=== PATIENT | female | born 1940 | race Caucasian/White ===

== ENCOUNTER → 2016-07-23 | Day surgery (SDC) | payer MEDICARE, OTHER ==
[~2016-07-23] VITALS: Ht 162.6 cm; Wt 117.9 kg
[~2016-07-23] MED LIST: /MOM400 PO; /SENOSTA PO; ACETYLCHOLINE OPHTH SOLN 1% 2ML As Ordered ONE; ACETYLCHOLINE OPHTH SOLN 1% 2ML XX ONE; ASPI81TA85 PO; ASTA4CAP PO; ASTAXANTHIN PO; AUGM875T27 PO; BALANCED SALT IRRIGATION SOLUTION 500ML BAG (FOR OR EYE MACHINE) As Ordered ONE; BALANCED SALT IRRIGATION SOLUTION 500ML BAG (FOR OR EYE MACHINE) XX ONE; BENI40TA5 PO; BESI0.6S OD; BISAC5TA PO; BISO10TA42 PO; CALC PO; CEFUROXIME 1MG/0.1ML INTRACAMERAL INJ As Ordered ONE; CEFUROXIME 1MG/0.1ML INTRACAMERAL INJ XX ONE; CHROMIUM PO; CINNAMON PO; DOCU10ELUD PO; FERR32TA PO; GABA300C2 PO; GARCINIA PO; GLIM4TAB PO; HEALON DUET (HEALON 10MG/ML 0.55ML & HEALON ENDOCOAT 30MG/ML 0.85ML) As Ordered ONE; ICAPCAP PO; KRIL300C PO; KRIL300C2 PO; LIDO1DIS2 TD; LIDOCAINE 0.75%/EPINEPHRINE 0.025% IN BSS 1ML SYR INTRACAMERAL (OR ONLY) XX ONE; LIDOCAINE 1% SDV 5 ML VIAL As Ordered ONE; LIDOCAINE 4% INJ 5 ML AMP OU ONE; METF-415 PO; MIDAZOLAM INJ 2 MG/2 ML VIAL (J2250) As Ordered ONE; MORP10SO PO; MORP10SU PO; OFLOXACIN 0.3 % (OCUFLOX) OPTH SOL 5ML OD ONE; PERC5TAB PO; PERCOCET PO; PHENYLEPHRINE 2.5% OPHTH SOL 2ML OD ONE; POVIDONE-IODINE 5% OPHTH PREP SOL 30ML As Ordered ONE; PRED1SUS OD; PROBCAP4 PO; PROPARACAINE 0.5% OPHTH SOL 15ML OD ONE; SENO8.6T9 PO; TOBRADEX OPHTH OINT 3.5 GM As Ordered ONE; TROPICAMIDE 1% OPHTH SOLN 2 ML OD ONE; TUMERIC PO; TYLE325T5 PO; Tumeric PO; VITA2000 PO; VITABCTA PO; VITMTA PO; ZIAC10TA PO; ZYFLAMEND PO; [UNRECOGNIZED DRUG - CODE] OD; [UNRECOGNIZED DRUG - OTHER] PO; fentaNYL 100 MCG/2 ML INJECTION (J3010) As Ordered ONE
[2016-07-23] MEDS: LIDOCAINE 1% SDV 5 ML VIAL XX ONE ×2 (07:29→08:04)
--- NOTE | 2016-07-25 09:44 | RO ---
DATE OF PROCEDURE: 07/23/2016 PREOPERATIVE DIAGNOSIS: Visually significant nuclear sclerotic cataract right eye. POSTOPERATIVE DIAGNOSIS: Visually significant nuclear sclerotic cataract right eye. PROCEDURE: Cataract extraction with use of phacoemulsification and placement of intraocular lens ZCB00 22.0 diopters, right eye. SURGEON: Alfred Connelly DO NURSE RECRUITER: ANESTHESIA: Local with monitored anesthesia care (MAC). COMPLICATIONS: None. POSTOPERATIVE CONDITION: Stable. INDICATION FOR SURGERY: Blurred vision right eye affecting patient's activities of daily living. DESCRIPTION OF PROCEDURE: The patient was seen in the preoperative area and properly identified. The correct operative eye was identified and marked. Attention was turned to that eye. The patient received topical antibiotics in the preoperative area. The patient then received topical dilating drops consisting of tropicamide and phenylephrine. The patient was then transferred to the operating room. The correct side was reidentified. The patient received topical anesthetics and antibiotics on the surface of the eye. The eye was prepped and draped in a sterile fashion. The upper and lower eyelids were isolated with Tegaderm tape, and the lids were held open with an adjustable speculum. Using a sideport blade, a paracentesis incision was made. Intraocular preservative-free lidocaine was then injected into the anterior chamber. Viscoelastic was then injected into the anterior chamber through the paracentesis. Using a 2.75 mm sharp-tipped keratome, the anterior chamber was entered via a temporal clear corneal incision. A continuous curvilinear capsulorrhexis was created with the aid of a 26-gauge cystotome and Utrata forceps. Hydrodissection was performed with balanced salt solution (BSS) on a blunt cannula until the nucleus was freely mobile. The crystalline lens was phacoemulsified and aspirated. Additional cohesive viscoelastic was placed into the capsular bag to deepen it. A ZCB00, 22.0 diopter lens was placed into the capsular bag and confirmed by visualizing the continuous curvilinear capsulorrhexis. Additional irrigation and aspiration was used to remove cortical material and remaining viscoelastic. The clear corneal incision was hydrated with BSS on a blunt cannula. The lens was well positioned. The incisions were then tested for leaks and found to be negative. The eye was then palpated for appropriate pressure and adjusted accordingly with BSS. Several drops of antibiotics and Iopidine were placed in the eye. The eyelid speculum was then carefully removed. Maxitrol ointment was placed in the eye. An eye patch and shield were then secured over the eye. The patient tolerated the procedure well and was discharged to the recovery unit in a stable condition.
== END | disposition home or self-care (01) ==
LOC: M SDC 05:53
PROVIDERS: ATTEND Ophthalmology
DX: H25.11 Age-related nuclear cataract, right eye (principal); I10 Essential (primary) hypertension; E11.9 Type 2 diabetes mellitus without complications; G47.30 Sleep apnea, unspecified; Z91.040 Latex allergy status; Z79.899 Other long term (current) drug therapy
CPT/HCPCS: 66984; J2250; J3010; V2632

== ENCOUNTER → 2016-11-13 | Outpatient (REF) | payer MEDICARE, OTHER ==
[~2016-11-13] MED LIST changes: -ACETYLCHOLINE OPHTH SOLN 1% 2ML As Ordered ONE; -ACETYLCHOLINE OPHTH SOLN 1% 2ML XX ONE; -BALANCED SALT IRRIGATION SOLUTION 500ML BAG (FOR OR EYE MACHINE) As Ordered ONE; -BALANCED SALT IRRIGATION SOLUTION 500ML BAG (FOR OR EYE MACHINE) XX ONE; -CEFUROXIME 1MG/0.1ML INTRACAMERAL INJ As Ordered ONE; -CEFUROXIME 1MG/0.1ML INTRACAMERAL INJ XX ONE; -HEALON DUET (HEALON 10MG/ML 0.55ML & HEALON ENDOCOAT 30MG/ML 0.85ML) As Ordered ONE; -LIDOCAINE 0.75%/EPINEPHRINE 0.025% IN BSS 1ML SYR INTRACAMERAL (OR ONLY) XX ONE; -LIDOCAINE 1% SDV 5 ML VIAL As Ordered ONE; -LIDOCAINE 4% INJ 5 ML AMP OU ONE; -MIDAZOLAM INJ 2 MG/2 ML VIAL (J2250) As Ordered ONE; -OFLOXACIN 0.3 % (OCUFLOX) OPTH SOL 5ML OD ONE; -PHENYLEPHRINE 2.5% OPHTH SOL 2ML OD ONE; -POVIDONE-IODINE 5% OPHTH PREP SOL 30ML As Ordered ONE; -PROPARACAINE 0.5% OPHTH SOL 15ML OD ONE; -TOBRADEX OPHTH OINT 3.5 GM As Ordered ONE; -TROPICAMIDE 1% OPHTH SOLN 2 ML OD ONE; -fentaNYL 100 MCG/2 ML INJECTION (J3010) As Ordered ONE
[2016-11-13 16:22] LABS: CALCIUM LEVEL 8.4 MG/DL (8.8-10.2); CREATININE FOR GFR 1.3 MG/DL (0.55-1.02); GLOMERULAR FILTRATION RATE 42.2 (>39); POTASSIUM SERUM 4.5 MEQ/L (3.5-5.1)
== END ==
LOC: M LABDRAW1 13:36
PROVIDERS: ATTEND Otolaryngology
DX: Z01.812 Encounter for preprocedural laboratory examination (principal)

== ENCOUNTER → 2017-04-23 | Outpatient (REF) | payer MEDICARE, OTHER ==
[~2017-04-23] MED LIST changes: +CEFD1CAP8 PO; +D 501TAB PO; +[UNRECOGNIZED DRUG - CODE] OD; -[UNRECOGNIZED DRUG - CODE] OD
== END ==
LOC: M LAB REF 12:22
PROVIDERS: ATTEND Nurse Practitioner Adult Health
DX: R53.1 Weakness (principal)

== ENCOUNTER 2017-04-24 10:45 | Emergency (ER) | payer MEDICARE, OTHER ==
[~2017-04-24] VITALS: Ht 162.6 cm; Wt 115.0 kg
[~2017-04-24 10:45] MED LIST changes: -CEFD1CAP8 PO; -D 501TAB PO
[2017-04-24 11:46] LABS: BASO % 0.3 % (0.0-1.0); EOS # 0.1 10^3/uL (0.0-0.50); EOS % 1.9 % (0.0-3.0); IMMATURE GRANULOCYTE % 0.3 % (0-0); LYMPH % 27.3 % (24.0-44.0); MEAN CORPUSCULAR HEMOGLOBIN 31.5 pg (27.0-33.0); MEAN CORPUSCULAR HGB CONC 32.8 g/dl (32.0-36.5); MEAN CORPUSCULAR VOLUME 96.1 fl (80.0-96.0); MONO # 0.7 10^3/uL (0.0-0.8); MONO % 9.4 % (0.0-5.0); NEUTROPHILS # 4.5 10^3/uL (1.8-7.7); NEUTROPHILS % 60.8 % (36.0-66.0); PLATELET COUNT, AUTOMATED 199 10^3/uL (150-450); RED CELL DISTRIBUTION WIDTH 13.3 % (11.5-14.5); WHITE BLOOD COUNT 7.4 10^3/uL (4.0-10.0)
[2017-04-24 11:49] LABS: ADD MANUAL DIFFER NO; DIFF SLIDE NUMBER 135
[2017-04-24 12:32] LABS: ALBUMIN 3.3 GM/DL (3.2-5.2); ALBUMIN/GLOBULIN RATIO 0.89 (1.00-1.93); ALKALINE PHOSPHATASE 93 U/L (45-117); ALT/SGPT 19 U/L (12-78); ANION GAP 10 MEQ/L (8-16); AST/SGOT 13 U/L (15-37); BILIRUBIN,DIRECT < 0.1 MG/DL (0.0-0.2); BILIRUBIN,TOTAL 0.4 MG/DL (0.2-1.0); BLOOD UREA NITROGEN 34 MG/DL (7-18); CALCIUM LEVEL 8.6 MG/DL (8.8-10.2); CARBON DIOXIDE LEVEL 25 MEQ/L (21-32); CHLORIDE LEVEL 104 MEQ/L (98-107); GLOMERULAR FILTRATION RATE 35.8 (>39); GLUCOSE, FASTING 278 MG/DL (83-110); POTASSIUM SERUM 4.8 MEQ/L (3.5-5.1); SODIUM LEVEL 139 MEQ/L (136-145)
[2017-04-24] MEDS ORDERED: ALPRAZolam 0.25 MG TAB PO ONE (13:00)
[2017-04-24] MEDS ORDERED: SODIUM CHLORIDE 0.9% 1000 ML IV ONE (13:15)
[2017-04-24] MEDS ORDERED: PROHANCE 279.3MG/ML 15ML VIAL (A9576) As Ordered ONE (13:35)
--- NOTE | 2017-04-24 14:42 | REP ---
REASON: Altered mental status. COMPARISON: 06/03/2016 FINDINGS: The technique utilized in obtaining the radiograph has magnified the cardiac silhouette and accentuated the interstitial markings. The superior mediastinal structures are midline. The cardiac silhouette is unremarkable in size, shape, and position. The diaphragmatic surfaces of the lungs are regular, and the costophrenic angles are clear. The pulmonary shepard are clear. The imaged osseous structures are intact. IMPRESSION: There is no acute cardiopulmonary disease. Signed by Souleymane Muhammad DO 04/24/2017 02:59 P
[2017-04-24 16:24] VITALS: BP 133/85
--- NOTE | 2017-04-25 12:36 | ECGEPIP ---
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
[2017-04-25] MEDS ORDERED: D 501TAB PO (17:49)
[2017-04-25] MEDS ORDERED: CEFD1CAP8 PO (17:49)
--- NOTE | 2017-04-26 09:03 | REP ---
MR BRAIN WITHOUT AND WITH CONTRAST: HISTORY: Left ear mass. CONTRAST: ProHance 22 mL. Areas of increased hyperintensity on T2-weighted images are present in the periventricular and subcortical white matter. This represents small vessel ischemic disease. There is no intraparenchymal hemorrhage, infarct, or midline shift. The ventricular system and cortical sulci are dilated consistent with moderate volume loss. There is no extracerebral collection. A mass consistent with an acoustic neuroma is present in the left internal auditory canal and cerebellopontine angle cistern. There is moderate heterogeneous enhancement with contrast. The acoustic neuroma measures 2.3 cm in transverse by 1.7 cm in AP by 1.8 cm in cephalocaudal dimensions. There is very minimal mass effect in the adjacent left anterior cerebellum and left lateral feng. Mucosal thickening is present in the ethmoid maxillary and sphenoid sinuses. IMPRESSION: 1. Small vessel ischemic disease. 2. Moderate volume loss. 3. Left cerebellopontine angle cisterna acoustic neuroma. Signed by Gordon Mendez MD 04/26/2017 09:04 A
== END 2017-04-24 16:28 | disposition short-term general hospital (02) ==
LOC: M ED 10:45
DX: G93.9 Disorder of brain, unspecified (principal); I44.7 Left bundle-branch block, unspecified; E11.9 Type 2 diabetes mellitus without complications; G47.30 Sleep apnea, unspecified; I10 Essential (primary) hypertension; M48.00 Spinal stenosis, site unspecified; Z87.891 Personal history of nicotine dependence; Z79.4 Long term (current) use of insulin; Z79.899 Other long term (current) drug therapy; Z91.040 Latex allergy status; Z91.018 Allergy to other foods

== ENCOUNTER 2017-04-25 12:50 | Inpatient (IN) | payer MEDICARE, OTHER ==
[~2017-04-25] VITALS: Ht 162.6 cm; Wt 114.5 kg
[2017-04-25 16:24] LABS: BASO % 0.4 % (0.0-1.0); EOS # 0.2 10^3/uL (0.0-0.50); EOS % 2.5 % (0.0-3.0); IMMATURE GRANULOCYTE % 0.6 % (0-0); LYMPH # 2.1 10^3/uL (1.5-4.5); MEAN CORPUSCULAR HEMOGLOBIN 31.8 pg (27.0-33.0); MEAN CORPUSCULAR VOLUME 96.5 fl (80.0-96.0); MONO # 0.8 10^3/uL (0.0-0.8); MONO % 10.9 % (0.0-5.0); NEUTROPHILS # 3.8 10^3/uL (1.8-7.7); NEUTROPHILS % 54.6 % (36.0-66.0); PLATELET COUNT, AUTOMATED 188 10^3/uL (150-450); RED CELL DISTRIBUTION WIDTH 13.1 % (11.5-14.5); WHITE BLOOD COUNT 6.9 10^3/uL (4.0-10.0)
[2017-04-25 16:31] LABS: INR 0.96
[2017-04-25 16:37] LABS: ADD MANUAL DIFFER NO; ADD MORPHOLOGY? NO; DIFF SLIDE NUMBER 144
[2017-04-25 16:45] LABS: ANION GAP 8 MEQ/L (8-16); BLOOD UREA NITROGEN 36 MG/DL (7-18); CALCIUM LEVEL 8.9 MG/DL (8.8-10.2); CARBON DIOXIDE LEVEL 27 MEQ/L (21-32); CHLORIDE LEVEL 107 MEQ/L (98-107); CREATININE FOR GFR 1.75 MG/DL (0.55-1.02); GLOMERULAR FILTRATION RATE 29.9 (>39); GLUCOSE, FASTING 170 MG/DL (83-110); POTASSIUM SERUM 4.1 MEQ/L (3.5-5.1); SODIUM LEVEL 142 MEQ/L (136-145)
[2017-04-25 17:43] LABS: OSMOLALITY URINE 606 MOSM/KG (500-800)
[2017-04-25] MEDS ORDERED: D 501TAB PO (17:49)
[2017-04-25] MEDS ORDERED: CEFD1CAP8 PO (17:49)
--- NOTE | 2017-04-25 18:00 | REPUSA ---
Clinical history: Renal failure. Findings: The urinary bladder is contracted. No urinary bladder masses are seen. The right kidney rodney sures 10.2 x 4.5 x 4.7 cm. The left kidney measures 11.2 x 5.4 x 6.2 cm. There is a simple left renal cyst measuring 2.1 x 1.2 x 1.2 cm. The kidneys demonstrate normal echotexture and echogenicity. Ther e is no evidence of hydronephrosis or nephrolithiasis. No renal masses are seen. No free fluid is dorinda reciated. Impression: Unremarkable ultrasound examination of the kidneys.
[2017-04-25] MEDS ORDERED: GLUCOSE 4 GM CHEW TABLET PO PRN (19:15)
[2017-04-25] MEDS ORDERED: GLUCAGON FOR INJ 1 MG VIAL (J1610) SC PRN (19:15)
[2017-04-25] MEDS ORDERED: DEXTROSE 50% 50 ML SYRINGE IV PRN (19:15)
--- NOTE | 2017-04-25 19:44 | HPE ---
DATE OF ADMISSION: 04/25/2017 PRIMARY CARE PROVIDER: Dr. Rascon NEUROSURGEON: Dr. Alfaro in [place]. CHIEF COMPLAINT: Generalized weakness. 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 She has seen her primary care provider about it and the nurse practitioner recently prescribed her Omnicef for an upper respiratory infection and thought that she was retaining fluid and provided her with loop diuretic as well. However, after the blood work returned, the patient was told not to take the loop diuretic but to take the antibiotic. The patient did not feel any significant improvement in her symptoms. She has a known left acoustic neuroma, for which she follows with a neurosurgeon, Dr. Alfaro, in [place] for. She presented to the emergency room yesterday and was found to have decrease finger to nose on the left side and a MRI completed yesterday in our emergency room, only preliminary report is available for, was mildly concerning for some cerebellar compression, and as such the patient was transferred to [place] in order to be evaluated by neurosurgeon and neurology. Neurosurgeon reportedly reviewed the MRI images and told her that it was not compressing the cerebellum and so there was nothing to do and that if the patient did well with a walker that she could go home. The patient was reportedly also seen by a neurologist in the emergency room in [place]. The neurologist told her that they would be happy to see her in the outpatient setting and the patient was able to ambulate with a walker and as such was sent home. Since arriving home last night, the patient states that she did not feel safe or comfortable using the walker ambulating around her house and as such her and her life partner returned to [facility] again today. She feels no different than she did yesterday and no change in her symptoms. She denies fevers, chills, chest pain, shortness of breath, nausea, vomiting, or diarrhea. She states that she feels fatigued, even while lying at rest, it is not with exertion. She denies associated dyspnea or chest pressure. She denies any rashes or ocular symptoms, such as diplopia. PAST MEDICAL HISTORY: 1. Chronic kidney disease. 2. Dyslipidemia. 3. Obstructive sleep apnea, compliant with CPAP. 4. Left bundle branch block. 5. Hypertension. 6. Spinal stenosis, status post surgery. 7. Diabetes with peripheral neuropathy. 8. Left acoustic neuroma. ALLERGIES: KIWI and LATEX. PAST SURGICAL HISTORY: 1. Bilateral cataract surgery. 2. Back surgery. 3. Left rotator cuff repair. 4. Left total knee replacement. 5. Gamma knife therapy for acoustic neuroma. 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 She has a life partner, whom she lives with. She is a former smoker, quit many years ago. Denies alcohol or illicit drug use. HOME MEDICATIONS: She recently stopped metformin. - vitamin D 5000 units daily - glyburide 8 mg daily - I-Caps one capsule by mouth twice a day - krill oil 500 mg daily - bisoprolol 10 mg daily - Cefdinir 600 mg by mouth daily - vitamin B complex one capsule daily FAMILY HISTORY: Noncontributory. REVIEW OF SYSTEMS: Negative other than history of present illness. PHYSICAL EXAMINATION: VITAL SIGNS: Temperature 97.2, heart rate 65, blood pressure 158/98, oxygen saturation 97% on room air. GENERAL: She is a morbidly obese, elderly, female lying on a stretcher at a 20 degree angle. She appears tired but is awake, alert and oriented times three and does not appear to be in any acute distress whatsoever. HEENT: Cranial nerves II through XII are grossly intact. She has mildly dry mucous membranes. No elevation in central venous pressure. CARDIOVASCULAR EXAM: S1, S2 regular. RESPIRATORY EXAM: Clear. ABDOMINAL EXAM: Grossly obese. Bowel sounds present. The abdomen is soft. EXTREMITIES: No clubbing, cyanosis or edema. LABORATORY DATA: WBC 6.9, hemoglobin 11.8, hematocrit 35.8, platelet count is 188. Chemistry panel: Sodium 142, potassium 4.1, chloride 107, bicarbonate 27, BUN 36, creatinine 1.7, up from a baseline of approximately 1.3. She has a set of cardiac enzymes negative from today and yesterday. INR today is 0.9. UA is fairly unremarkable. No microbiology. New imaging: The patient did have a renal ultrasound that was unremarkable. Only preliminary report is available from her MRI from yesterday. ASSESSMENT AND PLAN: This is a 76-year-old female with weakness in the setting of known acoustic neuroma. 1. Weakness, the etiology remains unclear. It has been progressive over the last 3 weeks. Given that it is fairly diffuse distribution throughout her entire body but mildly worse in her legs, MRI of the lumbosacral spine is ordered. It does not seem as though it is related to the acoustic neuroma, as she has been evaluated by neurosurgery already. At this time, her CKs are not elevated. I will check an amylase, as well as anticholinergic antibody. I will check ESR and C-reactive protein. Her obstructive sleep apnea is well controlled and titrated by pulmonary, Dr. Maciel. I will have her evaluated by physical therapy (PT). She may need potentially home care versus some assisted living placement. However, the etiology remains unclear. I did screen her for depression. She does not appear to be at all. She may benefit from a neurology consultation should her symptoms fail to improve. 2. Obstructive sleep apnea. Continue with CPAP. 3. Acute on chronic kidney injury. I will provide her with gentle IV fluid. She has had poor oral intake, as she has been in the emergency room for several days. 4. Spinal stenosis, as outlined above. This may be a contributing factor to her symptoms, although she is not having any maik pain. 5. Neuropathy. This may be contributing factor to her multifactorial gait instability as well. 6. Diabetes. We will place her on fingersticks. Her metformin continues to be on hold. 7. Upper respiratory infection. She does not appear to have any symptoms whatsoever at this time; however, I will continue with the medications prescribed by her outpatient provider, Cefdinir. 8. Hypertension. Continue with bisoprolol. 9. Deep vein thrombosis (DVT) prophylaxis. The patient will be on heparin. DISPOSITION: The patient is admitted to the medical/surgical floor to Dr. Cagle's service, who will continue following the patient at 7:00 a.m.
--- NOTE | 2017-04-25 20:30 | REPUSA ---
MRI of the lumbar spine without contrast Clinical statement: Pain. Technique: Multiecho multiplanar MRI images of the lumbar spine were obtained without administration of contrast. Comparison: None. Findings: The lumbar vertebral bodies are in satisfactory position and alignment. Surgical fusion steph nges at L4/L5 with interpedicular screws are grossly intact. No fractures or dislocations are demonst rated. Normal heterogeneous bone marrow signal is noted. No osseous tumors are seen. The intervertebr al disc heights are well maintained and demonstrate normal signal. The filum terminale and conus medu llaris appear unremarkable. The spinal cord demonstrates normal signal and contour. The surrounding s oft tissues are within normal limits. The L1/L2 disc level is unremarkable. At L2/L3, there is a broad disc osteophyte complex and disc bulge. There is no evidence of disc herni ation or central canal stenosis. There is moderate bilateral neural foraminal narrowing. At L3/L4, there is a broad disc osteophyte complex and disc bulge. There is no evidence of disc herni ation or central canal stenosis. There is moderate bilateral neural foraminal narrowing. The L4/L5 and L5/S1 disc levels are grossly unremarkable, but evaluation is limited because of suscep tibility artifact. Impression: 1. Broad disc osteophyte complexes and disc bulges at L2/L3 and L3/L4 causing moderate bilateral neur al foraminal narrowing. No evidence of central canal stenosis. 2. Surgical fusion at L4/L5 appears grossly intact. 3. No acute osseous abnormality.
[2017-04-25 22:13] VITALS: BP 142/89
[2017-04-25] MEDS: HumaLOG INSULIN (NovoLOG) PER UNIT SC SCH (23:16)
[2017-04-25] MEDS: HEPARIN SOD (PORCINE) 5000 UNITS/ML VIAL SC SCH (23:42)
[2017-04-25] MEDS: NS 1,000 ML IV SCH (23:42)
[2017-04-26] MEDS: HEPARIN SOD (PORCINE) 5000 UNITS/ML VIAL SC SCH ×3 (05:52→21:37)
[2017-04-26 06:00] VITALS: BP 154/66
[2017-04-26 07:23] LABS: MEAN CORPUSCULAR HEMOGLOBIN 31.7 pg (27.0-33.0); MEAN CORPUSCULAR HGB CONC 32.2 g/dl (32.0-36.5); MEAN CORPUSCULAR VOLUME 98.4 fl (80.0-96.0); RED CELL DISTRIBUTION WIDTH 13.2 % (11.5-14.5); WHITE BLOOD COUNT 5.6 10^3/uL (4.0-10.0)
[2017-04-26] MEDS: HumaLOG INSULIN (NovoLOG) PER UNIT SC SCH ×4 (07:30→21:00)
[2017-04-26 08:02] LABS: ALBUMIN 2.9 GM/DL (3.2-5.2); ALBUMIN/GLOBULIN RATIO 0.83 (1.00-1.93); BILIRUBIN,TOTAL 0.3 MG/DL (0.2-1.0); CALCIUM LEVEL 8.7 MG/DL (8.8-10.2); CREATININE FOR GFR 1.27 MG/DL (0.55-1.02); GLOMERULAR FILTRATION RATE 43.3 (>39); MAGNESIUM LEVEL 1.9 MG/DL (1.8-2.4); POTASSIUM SERUM 3.6 MEQ/L (3.5-5.1); TOTAL PROTEIN 6.4 GM/DL (6.4-8.2)
[2017-04-26] MEDS: BISOPROLOL FUMARATE 10 MG TAB PO SCH (08:30)
[2017-04-26] MEDS: VITAMIN B COMPLEX/VIT C CAP PO SCH (08:31)
[2017-04-26] MEDS: CEFDINIR 300 MG CAP (OMNICEF) PO SCH (08:31)
--- NOTE | 2017-04-26 12:33 | IPNPDOC ---
Subjective Date Seen The patient was seen on 04/26/17. Subjective Chief Complaint/HPI The patient is a 76-year-old female admitted with a reason for visit of Acute Chronic Renal Failure. Events since last encounter The patient was seen and examined with morning at bedside. The patient states her weakness hasn't improved and is still the same. The patient had an MRI of the lumber spine which showed no acute osseous abnormalities. PT and OT will come and work with the patient today. No overnight events reported since admission on floor. General: Reports: Normal Appetite, Denies: Chills, Night Sweats, Fatigue, Malaise ENT: Denies: Dysphagia, Sore Throat Skin: Denies: Bruising Pulmonary: Denies: Dyspnea, Cough Cardiovascular: Denies: Chest Pain, Lt Headedness Gastrointestinal: Denies: Nausea, Vomiting, Abdominal Pain, Diarrhea, Constipation Genitourinary: Denies: Hematuria, Retention Hematologic: Denies: Bruising, Bleeding Excessively Musculoskeletal: Denies: Neck Pain, Back Pain, Joint Pain, Muscle Pain, Spasms Neurological: Reports: Weakness (bilateral lower legs), Denies: Numbness Psych: Reports: Mood Normal, Denies: Depression, Memory Issues Objective Physical Examination General Exam: Positive: Alert, Cooperative, No Acute Distress Eye Exam: Positive: PERRLA, Conjunctiva & lids normal, EOMI ENT Exam: Positive: Atraumatic, Mucous membr. moist/pink, Pharynx Normal Chest Exam: Positive: Clear to auscultation, Normal air movement, Negative: Rales, Rhonchi, Wheezing Heart Exam: Positive: Rate Normal, Regular Rhythm, Normal S1, Normal S2, Negative: Murmurs, Rubs Abdomen Exam: Positive: Normal bowel sounds, Soft, Other (obese), Negative: Tenderness, Hepatospenomegaly Extremity Exam: Positive: Normal pulses, Tenderness (on soft palpation of lower extermity states its been there), Negative: Clubbing, Cyanosis, Edema, Swelling Skin Exam: Positive: Nl turgor and temperature, Negative: Rash, Breakdown Assessment /Plan Assessment 1. Weakness-diffuse body but more prominent in her lower extremities. patient had a lumbosacral MRI showed no acute osseous abnormalities. Patient's CRP is elevated at 1.48 and ESR was elevated at 43. Aldolase test currently pending. Unlikely this is rhabdomyolysis or polymyositis, even thought relatively acute onset of lower extremity weakness, no myoglobinuria and creatine kinase is not elevated at 53. The patient states no improvement in her weakness since being admitted to the floor. The patient will be evaluated and treated by PT and OT. If her symptoms worsen will consider Neuro consult. 2. Obstructive sleep apnea. Continue with CPAP. 3. Acute on chronic kidney injury. (reolving) Creatine is currently at 1.27. Patient is currently get IV fluids at 50 mls/hour. Will continue with IV fluids and monitor the patient to see if PO intake improves then will consider discontinuing fluids. 4. Spinal stenosis- This may be a contributing factor to her symptoms, although she is not having any maik pain. 5. Neuropathy. This may be contributing factor to her multifactorial gait instability as well. 6. Diabetes. We will place her on fingersticks. Her metformin continues to be on hold. 7. Upper respiratory infection. Still not complaining of any symptoms of URI will continue medications prescribed by her outpatient provider, Cefdinir. 8. Hypertension. Continue with bisoprolol. 9. Deep vein thrombosis (DVT) prophylaxis. Heparin. Plan/VTE VTE Prophylaxis Ordered?: Yes (Heparin) VS, I&O, 24H, Fishbone Vital Signs/I&O Vital Signs Date Time Temp Pulse Resp B/P (MAP) Pulse Ox O2 Delivery O2 Flow Rate FiO2 04/26/17 06:00 97.3 57 16 154/66 (95) 98 Room Air Laboratory Data 24H LABS Laboratory Tests 2 04/25/17 15:38: Immature Granulocyte % (Auto) 0.6H, White Blood Count 6.9, Red Blood Count 3.71L , Hemoglobin 11.8L, Hematocrit 35.8L, Mean Corpuscular Volume 96.5H, Mean Corpuscular Hemoglobin 31.8, Mean Corpuscular Hemoglobin Concent 33.0, Red Cell Distribution Width 13.1, Platelet Count 188, Neutrophils (%) (Auto) 54.6, Lymphocytes (%) (Auto) 31.0, Monocytes (%) (Auto) 10.9H, Eosinophils (%) (Auto) 2.5, Basophils (%) (Auto) 0.4, Neutrophils # (Auto) 3.8, Lymphocytes # (Auto) 2.1, Monocytes # (Auto) 0.8, Eosinophils # (Auto) 0.2, Basophils # (Auto) 0.0, Immature Granulocyte # (Auto) 0.0, Nucleated Red Blood Cells % (auto) 0.0, Erythrocyte Sedimentation Rate 43H, Prothrombin Time 12.9, Prothromb Time International Ratio 0.96, Activated Partial Thromboplast Time 27.5, Anion Gap 8 , Glomerular Filtration Rate 29.9L, Lactic Acid Level 0.9, Blood Urea Nitrogen 36H, Creatinine 1.75H, Sodium Level 142, Potassium Level 4.1, Chloride Level 107 , Carbon Dioxide Level 27, Calcium Level 8.9, Total Creatine Kinase 53, Magnesium Level 2.0, Creatine Kinase MB 1.3, Creatine Kinase MB Relative Index 2.45, Troponin I < 0.02, C-Reactive Protein, Quantitative 1.48H, Thyroid Stimulating Hormone (TSH) 0.723 04/25/17 16:04: Bedside Glucose (Misc Panel) 178H 04/25/17 17:24: Urine Appearance CLEAR, Urine Color YELLOW, Urine pH 5.0, Urine Specific [place] 1.017, Urine Protein NEGATIVE, Urine Glucose (UA) 1+H, Urine Ketones TRACEH, Urine Urobilinogen 0.2, Urine Bilirubin NEGATIVE, Urine Leukocyte Esterase NEGATIVE, Urine Blood NEGATIVE, Urine Nitrite NEGATIVE, Urine WBC (Auto ) 0, Urine RBC (Auto) 2, Urine Hyaline Casts (Auto) 1, Urine Bacteria (Auto) NEGATIVE, Urine Squamous Epithelial Cells 0, Urine Mucus (Auto) SMALL, Urine Sperm (Auto) , Urine Random Osmolality 606, Urine Random Creatinine 199.0, Urine Random Total Protein 14.2H, Urine Random Sodium 64, Urine Random Potassium 35.9, Urine Random Chloride 64 04/25/17 22:42: Bedside Glucose (Misc Panel) 218H 04/26/17 07:14: CBC/BMP Laboratory Tests 04/25/17 15:38 Red Blood Count 3.71 L, Mean Corpuscular Volume 96.5 H, Mean Corpuscular Hemoglobin 31.8, Mean Corpuscular Hemoglobin Concent 33.0, Red Cell Distribution Width 13.1, Neutrophils (%) (Auto) 54.6, Lymphocytes (%) (Auto) 31.0, Monocytes (%) (Auto) 10.9 H, Eosinophils (%) (Auto) 2.5, Basophils (%) ( Auto) 0.4, Neutrophils # (Auto) 3.8, Lymphocytes # (Auto) 2.1, Monocytes # (Auto ) 0.8, Eosinophils # (Auto) 0.2, Basophils # (Auto) 0.0, Calcium Level 8.9, Total Creatine Kinase 53 GME ATTESTATION GME ATTESTATION My preceptor for this patient encounter was physically present in the building during the encounter and was fully available. As needed, all aspects of the patient interview, examination, medical decision making process, and medical care plan development were reviewed and approved by the preceptor. Preceptor is aware and concurs with the plan as stated in the body of this note and will attest to such by his/her cosignature. ELDA CHOWDARY DO Apr 26, 2017 07:57
[2017-04-26 14:00] VITALS: BP 138/62
[2017-04-26] MEDS: NS 1,000 ML IV SCH (18:11)
--- NOTE | 2017-04-26 22:13 | CR ---
DATE OF CONSULTATION: 04/26/2017 REFERRING PROVIDER: Dr. Cagle. REASON FOR CONSULTATION: Generalized weakness. 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 Velarde, Neurosurgeon, at [facility]. The patient was seen at [facility] recently for symptoms of weakness, had an MRI of the brain showing a slight mass effect of the acoustic neuroma over her feng and cerebellum and was transferred to [facility]'s Emergency Department. At [facility], she was evaluated by the neurosurgical and neurology teams, both of which recommended outpatient workup for this, including outpatient physical therapy with recommendations to use a walker. While at home, the patient felt no improvement in her strength and decided to come into the hospital. She is accompanied by her son, Pedro, who is a psychologist living in [place], who is also able to provide a history. Pedro states that his mother has been having progressive confusion and cognitive changes ongoing for the last year. She lives with her quality control director, Hamida, a close friend, as well as locally she has her [id number] to look after her. They have all commented that her memory is not quite the same as it used to be. The patient states that she has been experiencing generalized fatigue all throughout her body, including aches and pains throughout her limbs. The patient was very fatigued and sleeping most of the day over the last week and a half. She was initially diagnosed with an upper respiratory infection and was started on cefdinir. The patient was also noted to have edema of the lower extremities and was placed on a diuretic. During this hospitalization, the patient has had a normal CPK of 53 with a slightly elevated ESR of 43. The patient's BUN and creatinine was originally elevated but has improved slightly back to baseline. Acetylcholine receptor antibodies have been ordered, although the patient denies any fatigability in her weakness. The patient is pending an EEG due to cognitive changes and will have an MRI of the cervical spine to rule out myelopathy. The patient does clarify that she has been having progressive weakness of the lower extremities probably longer than the last week and a half. She has been using both hands to push off chairs for quite some time now. In the house, she usually walks holding onto different objects to create some stability. Her acoustic neuroma has left her a baseline gait abnormality and imbalance. She also suffers from diabetes and likely has diabetic neuropathy along with age-related changes to her peripheral nerves as she is 76. PAST MEDICAL HISTORY: Chronic kidney disease. Dyslipidemia. Obstructive sleep apnea, on continuous positive airway pressure (CPAP). Left bundle branch block. Hypertension. Spinal stenosis, status post lumbar fusion surgery. Diabetes with peripheral polyneuropathy. Left acoustic neuroma, status post gamma knife therapy July or August of 2016. ALLERGIES: KIWI, LATEX. PAST SURGICAL HISTORY: Bilateral cataract surgery. Back surgery. Left rotator cuff repair. Left total knee placement. Gamma knife therapy for acoustic neuroma. 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 She is a former smoker, quit many years ago. Denies use of alcohol or illicit drugs. HOME MEDICATIONS: - vitamin D 5000 international units (IU) by mouth daily - glimepiride 8 mg by mouth daily - ICAPs by mouth twice a day - Krill Oil 500 mg by mouth daily - bisoprolol 10 mg by mouth daily - cefdinir 600 mg by mouth daily - vitamin B complex one capsule by mouth daily The patient did recently start using a new herbal supplement called Herbal Guggul. The patient started using this for lowering her cholesterol. FAMILY HISTORY: Noncontributory. REVIEW OF SYSTEMS 14-point review of systems obtained and is negative except as per history of the present illness. PHYSICAL EXAMINATION: Blood pressure is 138/62, pulse rate 69, respiratory rate is 16, oxygenation 95% on room air. Current height is 5 feet 4 inches, current weight is 113.8 kg. The patient is awake, alert, oriented to person, place and time. Speech, language, comprehension and repetition are intact. Pupils are 2-1/2 mm, round and reactive to light. Extraocular movements are intact in all directions. Sensation V1, V2, V3 is intact to light touch. No facial asymmetry to activation. Palate elevates symmetrically. Tongue is midline. No weakness of sternocleidomastoids bilaterally. Hearing is subjectively equal to finger rub. There is no pronator drift. The patient demonstrates 5/5 strength involving bilateral deltoids, biceps, triceps, handgrip, finger extensor, finger flexor, quadriceps, anterior tibialis. The patient demonstrates 5- weakness in bilateral iliopsoas. Sensory is intact to light touch in all four extremities. Coordination: Normal [id number] without any signs of ataxia or dysmetria. Deep tendon reflexes are 2+ in the upper extremities, absent at the patellas and Achilles. Babinski signs are absent. Gait deferred. ASSESSMENT: 1. Generalized weakness and deconditioning, multifactorial. 2. Confusion. Baseline dementia with probable delirium, given recent treatment of upper respiratory infection and antibiotic. 3. Less likely Guillain-Farwell syndrome. Areflexia of the lower extremities likely resulting from diabetes and age. PLAN: 1. Obtain MRI of cervical spine to rule out cervical myelopathy. 2. Start physical therapy for generalized deconditioning. 3. Obtain EEG to assess cognitive functioning. 4. I would avoid restarting her most recent herbal supplement Guggul. This does not appear to be a underlying myopathy at this time. She has quite adequate 5/5 strength in most muscles tested. 5. Management of left acoustic neuroma as per Dr. Velarde at [facility]. History obtained from both the patient the patient's son Pedro.
[2017-04-27 06:00] VITALS: BP 159/86
[2017-04-27 06:12] LABS: MEAN CORPUSCULAR HEMOGLOBIN 31.9 pg (27.0-33.0); MEAN CORPUSCULAR HGB CONC 33.3 g/dl (32.0-36.5); MEAN CORPUSCULAR VOLUME 95.7 fl (80.0-96.0); RED CELL DISTRIBUTION WIDTH 13.2 % (11.5-14.5); WHITE BLOOD COUNT 5.7 10^3/uL (4.0-10.0)
[2017-04-27 06:30] LABS: BILIRUBIN,TOTAL 0.2 MG/DL (0.2-1.0); CALCIUM LEVEL 8.5 MG/DL (8.8-10.2); CREATININE FOR GFR 1.06 MG/DL (0.55-1.02); GLOMERULAR FILTRATION RATE 53.4 (>39); POTASSIUM SERUM 3.9 MEQ/L (3.5-5.1)
[2017-04-27 06:31] LABS: ALBUMIN 2.5 GM/DL (3.2-5.2); ALBUMIN/GLOBULIN RATIO 0.74 (1.00-1.93); MAGNESIUM LEVEL 1.9 MG/DL (1.8-2.4); TOTAL PROTEIN 5.9 GM/DL (6.4-8.2)
[2017-04-27] MEDS: HEPARIN SOD (PORCINE) 5000 UNITS/ML VIAL SC SCH ×3 (06:33→23:14)
--- NOTE | 2017-04-27 08:30 | REP ---
MRI CERVICAL SPINE WITHOUT CONTRAST: HISTORY: Bilateral lower extremity weakness. The examination is limited secondary to motion. A disc bulge is present at the C4-5 level. There is mild effacement of the thecal sac without spinal cord compression. Uncinate process hypertrophy is present on the left. This produces mild narrowing of the left C4 neural foramen. The right C4 neural foramen is patent. A disc bulge with associated osteophyte formation is present at the C5-6 level. There is moderate effacement of the thecal sac without spinal cord compression. Bilateral uncinate process hypertrophy is present. This produces moderate narrowing of the C5 neural foramina. A disc bulge with associated osteophyte formation is present at the C6-7 level. There is mild effacement of the thecal sac without spinal cord compression. Bilateral uncinate process hypertrophy is present. This produces moderate narrowing of the C6 neural foramina. A disc bulge and small disc protrusion central and eccentric to the left are present at the C7-T1 level. There is mild effacement of the thecal sac without spinal cord compression. The C7 neural foramina are patent. Disc bulges are present at the T1-2 and T2-3 levels. There is minimal effacement of the thecal sac without spinal cord compression. The neural foramina are patent on sagittal images. There is no other disc bulge or herniation. The remaining neural foramina are patent. The spinal cord is normal in signal intensity. The C4-5 through C7-T1 intervertebral discs are decreased in height consistent with disc degeneration. Normal signal intensity is present in the cervical vertebral bodies. IMPRESSION: There is cervical spondylosis at the C4-5 through C7-T1 levels without spinal cord compression. Signed by Gordon Mendez MD 04/27/2017 08:37 A
[2017-04-27] MEDS: BISOPROLOL FUMARATE 10 MG TAB PO SCH (09:38)
[2017-04-27] MEDS: CEFDINIR 300 MG CAP (OMNICEF) PO SCH (09:38)
[2017-04-27] MEDS: VITAMIN B COMPLEX/VIT C CAP PO SCH (09:38)
[2017-04-27] MEDS: HumaLOG INSULIN (NovoLOG) PER UNIT SC SCH ×4 (09:40→21:00)
--- NOTE | 2017-04-27 11:03 | IPNPDOC ---
Subjective Date Seen The patient was seen on 04/27/17. Subjective Chief Complaint/HPI The patient is a 76-year-old female admitted with a reason for visit of Acute Chronic Renal Failure. Events since last encounter Overnight nurse states that patient seemed a little stronger overnight, but still complains of pain when she moves. Patient confirmed this and stated that the pain when she moves is in both legs. She says that this pain has been present in both calves for a week or two. Patient saw PT yesterday and will see them again today. Lumbar spine MRI on 04/25 showed no acute finding, renal ultrasound on 04/25 was unremarkable. Cervical spine MRI is pending. Acetylcholine Receptor Ab is pending. The patient states she is feeling a lot better this AM. She abmits to being hungry and having an appetite to eat. The patient has no other complaints this AM and understand she will continue working with PT and OT today. Dr. Hopper saw patient yesterday and ordered an EEG. He would like her to continue seeing her neurologist in [place] for her left acoustic neuroma. Patient has also been taking herbal Guggal, which he would like her to stop. Constitutional: Denies: Chills, Fever ENT: Denies: Head Aches Pulmonary: Denies: Dyspnea Cardiovascular: Denies: Chest Pain, Palpitations, Lt Headedness Gastrointestinal: Denies: Nausea, Vomiting, Abdominal Pain, Diarrhea, Constipation, Hematochezia Genitourinary: Denies: Dysuria, Frequency Musculoskeletal: Denies: Leg Pain (Bilaterally in calves, worsens with movement ) Neurological: Reports: Weakness (Improving) Objective Physical Examination General Exam: Positive: Alert, Cooperative, No Acute Distress Chest Exam: Positive: Clear to auscultation, Normal air movement, Negative: Rales, Rhonchi, Wheezing Heart Exam: Positive: Rate Normal, Regular Rhythm, Normal S1, Normal S2, Negative: Murmurs, Rubs Abdomen Exam: Positive: Normal bowel sounds, Soft, Other (morbidly obese), Negative: Tenderness Extremity Exam: Positive: Normal pulses, Tenderness (Bilaterally on calves), Negative: Clubbing, Cyanosis, Edema, Swelling Neuro Exam: Positive: Strength at 5/5 X4 ext (Equal bilaterally) Assessment /Plan Assessment 1. Weakness -Diffuse body but more prominent in her lower extremities; patient states that she feels stronger today. Patient had a lumbosacral MRI on 04/25 showed no acute osseous abnormalities. Patient saw PT yesterday and will see them again today. Patient was seen by Dr. Hopper yesterday, who ordered an EEG and would like patient to stop the herbal guggul that she has been taking recently for it might be the cause of her lower extremity weakness plus the dehydration. We appreciate his consult. 2. Obstructive sleep apnea. Continue with CPAP. 3. Acute on chronic kidney injury. (resolving) Creatine is currently at 1.06 ( 1.27 yesterday). Patient is currently get IV fluids at 50 mls/hour. Patient has good PO intake will discontinue iv fluids 4. Spinal stenosis. This may be a contributing factor to her symptoms, although she is not having any maik pain. 5. Neuropathy. This may be contributing factor to her multifactorial gait instability as well. 6. Diabetes. Continue to hold metformin and will continue to with insulin sliding scale. 7. Upper respiratory infection. Currently not complaining of any symptoms of URI, still on antibiotic prescribed by her outpatient provider, Cefdinir. WBC 5.7 today. Will stop antibiotics today. 8. Hypertension. Continue with bisoprolol. 9. Deep vein thrombosis (DVT) prophylaxis. Heparin. Plan/VTE VTE Prophylaxis Ordered?: Yes (Heparin) VS, I&O, 24H, Fishbone Vital Signs/I&O Vital Signs Date Time Temp Pulse Resp B/P (MAP) Pulse Ox O2 Delivery O2 Flow Rate FiO2 04/27/17 06:00 97.8 60 16 159/86 (110) 97 Room Air I&O- Last 24 Hours up to 6 AM 04/28/17 06:00 Intake Total 313 ml Balance 313 ml Laboratory Data 24H LABS Laboratory Tests 2 04/26/17 12:00: Bedside Glucose (Misc Panel) 274H 04/26/17 12:15: Bedside Glucose (Misc Panel) 306H 04/26/17 17:17: Bedside Glucose (Misc Panel) 145H 04/26/17 21:43: Bedside Glucose (Misc Panel) 187H 04/27/17 05:40: Anion Gap 7L, Glomerular Filtration Rate 53.4, Blood Urea Nitrogen 27H, Creatinine 1.06H, Sodium Level 143, Potassium Level 3.9, Chloride Level 112H, Carbon Dioxide Level 24, Calcium Level 8.5L, Aspartate Amino Transf (AST/SGOT) 8L, Alanine Aminotransferase (ALT/SGPT) 15, Alkaline Phosphatase 73, Total Bilirubin 0.2, Total Protein 5.9L, Albumin 2.5L, Magnesium Level 1.9, Albumin/ Globulin Ratio 0.74L CBC/BMP Laboratory Tests 04/27/17 05:40 Red Blood Count 3.29 L, Mean Corpuscular Volume 95.7, Mean Corpuscular Hemoglobin 31.9, Mean Corpuscular Hemoglobin Concent 33.3, Red Cell Distribution Width 13.2, Calcium Level 8.5 L, Aspartate Amino Transf (AST/SGOT) 8 L, Alanine Aminotransferase (ALT/SGPT) 15, Alkaline Phosphatase 73, Total Bilirubin 0.2, Total Protein 5.9 L, Albumin 2.5 L GME ATTESTATION GME ATTESTATION My preceptor for this patient encounter was physically present in the building during the encounter and was fully available. As needed, all aspects of the patient interview, examination, medical decision making process, and medical care plan development were reviewed and approved by the preceptor. Preceptor is aware and concurs with the plan as stated in the body of this note and will attest to such by his/her cosignature. ATTENDING NOTE Patient has been seen independently. All parts of the treatment plan has been discussed in detail with the resident and outlined above. A member of the hospitalist team will continue to see the patient daily through discharge to assist with management of this patient ELDA CHOWDARY, Apr 27, 2017 08:55 HAVEN VILLALOBOS DO Apr 30, 2017 15:44
[2017-04-27 11:15] VITALS: BP 146/85
[2017-04-27 14:00] VITALS: BP 146/67
[2017-04-27 23:06] VITALS: BP 168/72
[2017-04-27 23:11] VITALS: BP 170/80
[2017-04-28] MEDS ORDERED: BISOPROLOL FUMARATE 5 MG TAB PO ONE (00:15)
[2017-04-28 02:42] VITALS: BP 152/84
[2017-04-28] MEDS: HEPARIN SOD (PORCINE) 5000 UNITS/ML VIAL SC SCH ×3 (05:39→21:34)
--- NOTE | 2017-04-28 07:13 | EEG ---
DATE OF PROCEDURE: 04/27/2017 REFERRING PHYSICIAN: Dr. Koffi Lee. DIAGNOSIS: Seizure-like spell. EEG#: [id number] HISTORY: Patient is a 76-year-old woman who had gamma knife surgery for left-sided acoustic neuroma in 2017. The patient had progressive confusion and fatigue and cognitive changes. This EEG was done to rule out epileptic potential. She is currently taking Cefdinir, vitamin B complex bisoprolol, etc. TECHNICAL DESCRIPTION: This digital EEG was recorded by 21 scalp ear and two EKG electrodes and was reviewed in bipolar and referential montages following reformatting in 10-20 international electrode placement system. INTERPRETATION: The patient was noted to be in awake and drowsy states during this EEG. Resting awake background rhythm consisted of 7 - 8 Hz theta activity measuring 15 - 40 microvolts in amplitude, which was symmetric and reactive to eye opening. Attenuation of posterior dominant was seen during transition into drowsiness. Stage I and II sleep were reviewed and were symmetric bilaterally. Hyperventilation could not be performed. Photic stimulation remained unremarkable. EKG revealed normal sinus rhythm. No focal, lateralizing or epileptiform abnormalities were seen. CONCLUSION: This EEG in awake, drowsy states, stage I and II sleep is minimally abnormal due to presence of minimal generalized slowing consistent with minimal encephalopathy due to multiple potential causes. No epileptiform abnormalities were seen. Clinical correlation is recommended.
[2017-04-28 07:59] LABS: MEAN CORPUSCULAR HEMOGLOBIN 31.4 pg (27.0-33.0); MEAN CORPUSCULAR HGB CONC 32.8 g/dl (32.0-36.5); MEAN CORPUSCULAR VOLUME 95.5 fl (80.0-96.0); RED CELL DISTRIBUTION WIDTH 13.1 % (11.5-14.5); WHITE BLOOD COUNT 5.3 10^3/uL (4.0-10.0)
[2017-04-28 08:16] LABS: ALBUMIN 2.7 GM/DL (3.2-5.2); ALBUMIN/GLOBULIN RATIO 0.82 (1.00-1.93); BILIRUBIN,TOTAL 0.3 MG/DL (0.2-1.0); CALCIUM LEVEL 8.8 MG/DL (8.8-10.2); CREATININE FOR GFR 1.02 MG/DL (0.55-1.02); GLOMERULAR FILTRATION RATE 55.8 (>39); MAGNESIUM LEVEL 1.8 MG/DL (1.8-2.4); POTASSIUM SERUM 3.8 MEQ/L (3.5-5.1)
[2017-04-28] MEDS: HumaLOG INSULIN (NovoLOG) PER UNIT SC SCH ×4 (09:06→21:00)
[2017-04-28] MEDS: BISOPROLOL FUMARATE 10 MG TAB PO SCH (09:07)
[2017-04-28] MEDS: VITAMIN B COMPLEX/VIT C CAP PO SCH (10:36)
[2017-04-28 14:00] VITALS: BP 149/89
--- NOTE | 2017-04-28 16:09 | IPNPDOC ---
Date Seen The patient was seen on 04/28/17. Progress Note SUBJECTIVE: Patient is a [76-year-old female seen at bedside. She occasionally has lucid moments versus cognitive impairment through the night. Her partner. She lives with was present at bedside and she did inform us that this appears to be a new finding for her. There is a concern that she may have some underlying dementia that's developing along with superimposing delirium/ metabolic encephalopathy. OBJECTIVE PHYSICAL EXAMINATION: VITAL SIGNS: Please see below. GENERAL: [No acute distress, alert, pleasant. She does have some mild confusion] HEENT: [PERRLA. Throat clear. Neck supple] CARDIOVASCULAR: [Regular rate and rhythm]. RESPIRATORY: [Clear to auscultation bilaterally]. ABDOMINAL: [Soft, anteroseptal positive bowel sounds, mass, no rebound] EXTREMITIES: [No edema, no calf tenderness] NEUROLOGICAL: [Cranial nerves II through XII are grossly intact. No motor sensory deficits, but she does have some generalized weakness] PSYCHOLOGICAL: [Negative] LABORATORY DATA: Please see below. MICROBIOLOGY: Please see below. DVT prophylaxis ordered?: [Yes] ASSESSMENT AND PLAN: This is a -year-old [RACE] [GENDER] with . PROBLEMS: 1. Weakness -Diffuse body weakness. Spoke to her partner and encouraged patient to avoid as outlined previously. EEG was only remarkable for metabolic encephalopathy. We'll see how this improves with her treatment. 2. Metabolic encephalopathy: Multifactorial. 3. Cognitive impairment: Possibly delirium superimposed on some mild dementia. We'll see how she improves with current treatment. 4.. Obstructive sleep apnea. Continue with CPAP. 5.. Acute on chronic kidney injury. Resolved. We'll continue to follow her creatinine and kidney function 6.. Spinal stenosis. This may be a contributing factor to her symptoms, although she is not having any maik pain. 7. Neuropathy. This may be contributing factor to her multifactorial gait instability as well. 8. Diabetes. Continue to hold metformin and will continue to with insulin sliding scale. 9. Upper respiratory infection. We have discontinued her antibiotics. She remains afebrile with normal white count. No signs of sepsis. No signs of productive sputum. 9. Hypertension. Continue with bisoprolol. 10. Deep vein thrombosis (DVT) prophylaxis. Heparin. DISPOSITION: [She does appear to be slowly improving. We'll continue with physical therapy. She may need to be considered for subacute versus acute rehabilitation.]. VS, I&O, 24H, Fishbone Vital Signs/I&O Vital Signs Date Time Temp Pulse Resp B/P (MAP) Pulse Ox O2 Delivery O2 Flow Rate FiO2 04/28/17 14:00 98.7 62 18 149/89 (109) 97 Room Air I&O- Last 24 Hours up to 6 AM 04/29/17 06:00 Intake Total 600 ml Output Total 300 ml Balance 300 ml Laboratory Data 24H LABS Laboratory Tests 2 04/27/17 16:51: Bedside Glucose (Misc Panel) 147H 04/27/17 19:51: Bedside Glucose (Misc Panel) 162H 04/28/17 07:36: Anion Gap 6L, Glomerular Filtration Rate 55.8, Blood Urea Nitrogen 22H, Creatinine 1.02, Sodium Level 141, Potassium Level 3.8, Chloride Level 111H, Carbon Dioxide Level 24, Calcium Level 8.8, Aspartate Amino Transf (AST/SGOT) 7L , Alanine Aminotransferase (ALT/SGPT) 16, Alkaline Phosphatase 74, Total Bilirubin 0.3, Total Protein 6.0L, Albumin 2.7L, Magnesium Level 1.8, Albumin/ Globulin Ratio 0.82L 04/28/17 11:32: Bedside Glucose (Misc Panel) 194H CBC/BMP Laboratory Tests 04/28/17 07:36 Red Blood Count 3.57 L, Mean Corpuscular Volume 95.5, Mean Corpuscular Hemoglobin 31.4, Mean Corpuscular Hemoglobin Concent 32.8, Red Cell Distribution Width 13.1, Calcium Level 8.8, Aspartate Amino Transf (AST/SGOT) 7 L, Alanine Aminotransferase (ALT/SGPT) 16, Alkaline Phosphatase 74, Total Bilirubin 0.3, Total Protein 6.0 L, Albumin 2.7 L HAVEN VILLALOBOS DO Apr 28, 2017 16:09
[2017-04-28 21:00] VITALS: BP 144/76
[2017-04-29] MEDS: HEPARIN SOD (PORCINE) 5000 UNITS/ML VIAL SC SCH ×3 (05:45→21:07)
[2017-04-29 06:00] VITALS: BP 149/77
[2017-04-29 06:55] LABS: MEAN CORPUSCULAR HEMOGLOBIN 31.7 pg (27.0-33.0); MEAN CORPUSCULAR VOLUME 95.8 fl (80.0-96.0); RED CELL DISTRIBUTION WIDTH 13.1 % (11.5-14.5); WHITE BLOOD COUNT 5.8 10^3/uL (4.0-10.0)
[2017-04-29 07:18] LABS: ALBUMIN/GLOBULIN RATIO 0.81 (1.00-1.93); BILIRUBIN,TOTAL 0.3 MG/DL (0.2-1.0); CALCIUM LEVEL 9.2 MG/DL (8.8-10.2); CREATININE FOR GFR 1.27 MG/DL (0.55-1.02); GLOMERULAR FILTRATION RATE 43.3 (>39); MAGNESIUM LEVEL 1.9 MG/DL (1.8-2.4); POTASSIUM SERUM 3.8 MEQ/L (3.5-5.1); TOTAL PROTEIN 6.7 GM/DL (6.4-8.2)
[2017-04-29] MEDS: HumaLOG INSULIN (NovoLOG) PER UNIT SC SCH ×4 (09:23→21:00)
[2017-04-29] MEDS: VITAMIN B COMPLEX/VIT C CAP PO SCH (09:23)
[2017-04-29] MEDS: BISOPROLOL FUMARATE 10 MG TAB PO SCH (09:23)
--- NOTE | 2017-04-29 11:29 | IPNPDOC ---
Subjective Date Seen The patient was seen on 04/29/17. Subjective Chief Complaint/HPI The patient is a 76-year-old female admitted with a reason for visit of Acute Chronic Renal Failure. Events since last encounter Patient was sleeping before we saw her and she woke up groggy, which made it difficult to get a history. Patient was seen by OT and PT yesterday, nursing says she did well, was able to shower and walk in the hallway. PT believes patient would benefit from ARU on discharge at this point. Patient is still complaining of bilateral leg pain in calves; family member called yesterday to say that patient was supposed to get a leg ultrasound before leaving ED in [place] earlier in the week, but it was never done. Ultrasound was ordered this morning. Patient had Cefdinir discontinued on 04/27, still afebrile and WBC 5.8 today. EEG on 04/28 showed possible metabolic encephalopathy changes. Pulmonary: Denies: Dyspnea Cardiovascular: Denies: Chest Pain Musculoskeletal: Reports: Leg Pain (Bilateral in calves, increased on movement) Objective Physical Examination General Exam: Positive: No Acute Distress, Negative: Alert (Sleepy, not very talkative) Chest Exam: Positive: Clear to auscultation, Normal air movement, Negative: Rales, Rhonchi, Wheezing Heart Exam: Positive: Rate Normal, Regular Rhythm, Normal S1, Normal S2, Negative: Murmurs, Rubs Abdomen Exam: Positive: Normal bowel sounds, Soft, Other (morbidly obese), Negative: Tenderness Extremity Exam: Positive: Tenderness (More tender on palpation of left calf and highly sensitive to touch on the lower extremity skin Bilaterally.), Other ( Red/brown discoloration of lower extremities bilaterally, more pronounced on left), Negative: Clubbing, Cyanosis, Edema, Swelling Assessment /Plan Assessment 1. Weakness -Diffuse body weakness. EEG on 04/28 was only remarkable for minimal encephalopathy. Acetylcholine Receptor Antibody came back negative on 04/28. Patient has been told to stop herbal Guggal as this may be causing myositis. Patient has been working with PT and OT with improvement. PT suggested that patient would possibly benefit from ARU after discharge. Will continue PT and OT today and monitor for improvement. We'll contact PMR and see if they'll take the patient pending discharge. 2. Leg pain (more in left calf): Patient states she has had this pain for a week or two. Family member called yesterday to say that patient was supposed to get a leg ultrasound per ED in [place], but it was never done. Ultrasound has been ordered. Per nursing, patient refuses Dane stockings because her legs are very tender and highly sensitive to touch. Heparin has been administered since admission. 3. Metabolic encephalopathy: Multifactorial. EEG confirmed encephalopathy on . 4. Cognitive impairment: Possibly delirium superimposed on some mild dementia. We'll see how she improves with current treatment. 5. Obstructive sleep apnea. Continue with CPAP. 6. Acute on chronic kidney injury. Resolved. We'll continue to follow her creatinine and kidney function. 7. Spinal stenosis. This may be a contributing factor to her symptoms, although she is not having any maik pain. 8. Neuropathy. This may be contributing factor to her multifactorial gait instability as well. 9. Diabetes. Continue to hold metformin and will continue to control with insulin sliding scale. 10. Upper respiratory infection. We discontinued her antibiotics on 04/27. She remains afebrile with normal white count. No signs of sepsis. No signs of productive sputum. 11. Hypertension. Continue with bisoprolol. 12. Deep vein thrombosis (DVT) prophylaxis. Heparin. Plan/VTE VTE Prophylaxis Ordered?: Yes (Heparin) VS[facility]&O[facility] Vital Signs/I&O Vital Signs Date Time Temp Pulse Resp B/P (MAP) Pulse Ox O2 Delivery O2 Flow Rate FiO2 04/29/17 06:00 98.5 67 18 149/77 (101) 97 NIPPV (BIPAP/CPAP) Laboratory Data 24H LABS Laboratory Tests 2 04/28/17 11:32: Bedside Glucose (Misc Panel) 194H 04/28/17 16:45: Bedside Glucose (Misc Panel) 231H 04/28/17 20:38: Bedside Glucose (Misc Panel) 164H 04/29/17 06:23: Nucleated Red Blood Cells % (auto) 0.0, Anion Gap 9, Glomerular Filtration Rate 43.3, Blood Urea Nitrogen 23H, Creatinine 1.27H, Sodium Level 142, Potassium Level 3.8, Chloride Level 110H, Carbon Dioxide Level 23, Calcium Level 9.2, Aspartate Amino Transf (AST/SGOT) 15, Alanine Aminotransferase (ALT/SGPT) 20, Alkaline Phosphatase 79, Total Bilirubin 0.3, Total Protein 6.7, Albumin 3.0L, Magnesium Level 1.9, Albumin/Globulin Ratio 0.81L CBC/BMP Laboratory Tests 04/29/17 06:23 Red Blood Count 3.60 L, Mean Corpuscular Volume 95.8, Mean Corpuscular Hemoglobin 31.7, Mean Corpuscular Hemoglobin Concent 33.0, Red Cell Distribution Width 13.1, Calcium Level 9.2, Aspartate Amino Transf (AST/SGOT) 15 , Alanine Aminotransferase (ALT/SGPT) 20, Alkaline Phosphatase 79, Total Bilirubin 0.3, Total Protein 6.7, Albumin 3.0 L GME ATTESTATION GME ATTESTATION My preceptor for this patient encounter was physically present in the building during the encounter and was fully available. As needed, all aspects of the patient interview, examination, medical decision making process, and medical care plan development were reviewed and approved by the preceptor. Preceptor is aware and concurs with the plan as stated in the body of this note and will attest to such by his/her cosignature. ATTENDING NOTE Attending Note: I have independently examined this patient and all aspects of the exam and treatment decisions have been discussed with the resident. A member of the hospitalist staff will continue to follow this patient through discharge. ELDA CHOWDARY, Apr 29, 2017 07:54 HAVEN VILLALOBOS DO May 02, 2017 14:58
[2017-04-29 14:00] VITALS: BP 148/86
--- NOTE | 2017-04-29 14:28 | REP ---
Duplex extremity venous ultrasound: Bilateral lower extremity veins. History: Bilateral calf pain and swelling. Findings: The deep veins are anechoic and fully compressible from the groin to the popliteal fossa in the left and right lower extremity. We were unable to completely compress the distal superficial femoral vein in each side due to patient discomfort but both of these vein segments augment normally with Doppler. Color flow imaging is homogeneous. Spectral Doppler interrogation demonstrates intact respiratory variation in flow and normal manual augmentation of flow. There is no evidence of deep vein thrombosis. Impression: Negative bilateral lower extremity duplex venous ultrasound. No evidence of deep vein thrombosis. Signed by Rambo Erwin MD 04/29/2017 02:19 P
[2017-04-29 20:30] VITALS: BP 150/74
[2017-04-30 05:02] VITALS: BP 152/72
[2017-04-30] MEDS: HEPARIN SOD (PORCINE) 5000 UNITS/ML VIAL SC SCH ×3 (05:35→21:44)
[2017-04-30 06:40] LABS: MEAN CORPUSCULAR HEMOGLOBIN 31.7 pg (27.0-33.0); MEAN CORPUSCULAR HGB CONC 33.2 g/dl (32.0-36.5); MEAN CORPUSCULAR VOLUME 95.4 fl (80.0-96.0); RED CELL DISTRIBUTION WIDTH 13.1 % (11.5-14.5)
[2017-04-30 07:04] LABS: ALBUMIN/GLOBULIN RATIO 0.86 (1.00-1.93); BILIRUBIN,TOTAL 0.4 MG/DL (0.2-1.0); CALCIUM LEVEL 8.8 MG/DL (8.8-10.2); CREATININE FOR GFR 1.15 MG/DL (0.55-1.02); GLOMERULAR FILTRATION RATE 48.6 (>39); MAGNESIUM LEVEL 1.8 MG/DL (1.8-2.4); POTASSIUM SERUM 3.9 MEQ/L (3.5-5.1); TOTAL PROTEIN 6.5 GM/DL (6.4-8.2)
[2017-04-30] MEDS: HumaLOG INSULIN (NovoLOG) PER UNIT SC SCH ×4 (09:37→20:16)
[2017-04-30] MEDS: VITAMIN B COMPLEX/VIT C CAP PO SCH (09:37)
[2017-04-30] MEDS: BISOPROLOL FUMARATE 10 MG TAB PO SCH (09:38)
--- NOTE | 2017-04-30 10:53 | IPNPDOC ---
Subjective Date Seen The patient was seen on 04/30/17. Subjective Chief Complaint/HPI The patient is a 76-year-old female admitted with a reason for visit of Acute Chronic Renal Failure. Events since last encounter The patient states that she feels much better today. Her leg pain is still present bilaterally. Ultrasound on 04/29 showed no DVT's. Patient is still working with PT and OT. Both nursing and PT was consulted this morning, and both agree that patient is still too weak for PMR. They say that the patient is motivated to get stronger, but gets weak very quickly (patient was exhausted after only 10 minutes with PT today). It was suggested that something less strenuous than PMR for her. Also, patient seems to have trouble following some commands without repetition, and gets confused at night. ENT: Denies: Head Aches Pulmonary: Denies: Dyspnea Cardiovascular: Denies: Chest Pain, Palpitations, Lt Headedness Gastrointestinal: Reports: Constipation (Patient was concerned because she has not had her normal bowel movement today), Denies: Nausea, Vomiting, Abdominal Pain, Diarrhea Musculoskeletal: Reports: Leg Pain (Still bilaterally in calves/shins) Objective Physical Examination General Exam: Positive: Alert (Patient sitting in chair), No Acute Distress Chest Exam: Positive: Clear to auscultation, Normal air movement, Negative: Rales, Rhonchi, Wheezing Heart Exam: Positive: Rate Normal, Regular Rhythm, Normal S1, Normal S2, Negative: Murmurs, Rubs Abdomen Exam: Positive: Normal bowel sounds, Soft, Other (morbidly obese), Negative: Tenderness Extremity Exam: Positive: Tenderness (Bilaterally in calves/shins), Other (Red/ brown discoloration of lower extremities bilaterally, more pronounced on left), Negative: Clubbing, Cyanosis, Edema, Swelling Skin Exam: Positive: Breakdown (Bilateral arterial insufficiency in LE) Assessment /Plan Assessment 1. Weakness -Diffuse body weakness. EEG on 04/28 was only remarkable for minimal encephalopathy. Patient has been told to stop herbal Guggal as this may be causing myositis. Patient has been working with PT and OT with improvement. PT and nursing were consulted today, and both agree that PMR would be too strenuous for the patient at this time. Will continue PT and OT today and monitor for improvement. Consulted Social Service to find a subacute rehab more appropriate for the patient. 2. Leg pain. Patient states she has had this pain for a week or two. Ultrasound yesterday showed no DVTs. Per nursing, patient refuses Dane stockings because her legs are very tender and highly sensitive to touch. Will continue with Heparin. 3. Metabolic encephalopathy: Multifactorial. EEG confirmed encephalopathy on . 4. Cognitive impairment: Possibly delirium superimposed on some mild dementia. Nursing and PT agree that patient is sometimes not able to follow instructions well without repetition. We'll see how she improves with current treatment. 5. Obstructive sleep apnea. Continue with CPAP. 6. Acute on chronic kidney injury. Resolved. We'll continue to follow her creatinine and kidney function. 7. Spinal stenosis. This may be a contributing factor to her symptoms, although she is not having any maik pain. 8. Neuropathy. This may be contributing factor to her multifactorial gait instability as well. 9. Diabetes. Continue to hold metformin and will continue to control with insulin sliding scale. 10. Upper respiratory infection. We discontinued her antibiotics on 04/27. She remains afebrile with normal white count. No signs of sepsis. No signs of productive sputum. 11. Hypertension. Continue with bisoprolol. 12. Deep vein thrombosis (DVT) prophylaxis. Heparin. Plan/VTE VTE Prophylaxis Ordered?: Yes (Heparin) VS, I&O, 24H, [facility] Vital Signs/I&O Vital Signs Date Time Temp Pulse Resp B/P (MAP) Pulse Ox O2 Delivery O2 Flow Rate FiO2 04/30/17 09:38 67 134/74 04/30/17 05:02 98.3 18 98 Room Air Laboratory Data 24H LABS Laboratory Tests 2 04/29/17 11:38: Bedside Glucose (Misc Panel) 240H 04/29/17 17:32: Bedside Glucose (Misc Panel) 177H 04/29/17 20:37: Bedside Glucose (Misc Panel) 201H 04/30/17 06:08: Bedside Glucose (Misc Panel) 176H 04/30/17 06:32: Nucleated Red Blood Cells % (auto) 0.0, Anion Gap 4L, Glomerular Filtration Rate 48.6, Blood Urea Nitrogen 20H, Creatinine 1.15H, Sodium Level 141, Potassium Level 3.9, Chloride Level 110H, Carbon Dioxide Level 27, Calcium Level 8.8, Aspartate Amino Transf (AST/SGOT) 24, Alanine Aminotransferase (ALT/ SGPT) 33, Alkaline Phosphatase 85, Total Bilirubin 0.4, Total Protein 6.5, Albumin 3.0L, Magnesium Level 1.8, Albumin/Globulin Ratio 0.86L CBC/BMP Laboratory Tests 04/30/17 06:32 Red Blood Count 3.69 L, Mean Corpuscular Volume 95.4, Mean Corpuscular Hemoglobin 31.7, Mean Corpuscular Hemoglobin Concent 33.2, Red Cell Distribution Width 13.1, Calcium Level 8.8, Aspartate Amino Transf (AST/SGOT) 24 , Alanine Aminotransferase (ALT/SGPT) 33, Alkaline Phosphatase 85, Total Bilirubin 0.4, Total Protein 6.5, Albumin 3.0 L GME ATTESTATION GME ATTESTATION My preceptor for this patient encounter was physically present in the building during the encounter and was fully available. As needed, all aspects of the patient interview, examination, medical decision making process, and medical care plan development were reviewed and approved by the preceptor. Preceptor is aware and concurs with the plan as stated in the body of this note and will attest to such by his/her cosignature. ATTENDING NOTE Attending Note: I have independently examined this patient and all aspects of the exam and treatment decisions have been discussed with the resident. A member of the hospitalist staff will continue to follow this patient through discharge. ELDA CHOWDARY DO Apr 30, 2017 10:47 HAVEN VILLALOBOS DO May 02, 2017 15:02
[2017-04-30 14:00] VITALS: BP 146/77
--- NOTE | 2017-04-30 17:48 | REP ---
Noncontrast head CT: History: Confusion. Comparison brain MRI study April 24, 2020 07:00 p.m. 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 CT findings: Preliminary digital thermoscrew operator radiographs are unremarkable. Bone window settings demonstrate an intact bony calvarium. There is some mucosal thickening in the right sphenoid sinus. No intraorbital abnormality is seen. There is a mild to moderate diffuse cerebral atrophy and concordant ventricular enlargement. Small vessel atherosclerotic changes are seen in the periventricular white matter of the frontal lobes bilaterally. There is no evidence of intracranial hemorrhage. No extra-axial fluid collection is seen. The left CP angle cistern mass is noted as observed on recent MR study. This widens the left internal auditory canal. No other extra-axial mass seen. No midline shift or infarction noted. Impression: Vascular calcification and diffuse moderate atrophy. Small vessel changes are noted. 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 No acute intracranial abnormality. Signed by Rambo Erwin MD 04/30/2017 07:24 P
--- NOTE | 2017-04-30 18:16 | REP ---
Chest x-ray: Two views. History: Confusion. Comparison chest x-ray April 24, 2017 and June 03, 2016 . Findings: Cardiomegaly is again observed, unchanged. There is mild linear discoid atelectasis versus fibrosis anteriorly in the retrosternal clear space on lateral radiograph. This is probably left-sided. It appears to be unchanged from comparison chest x-ray June 03, 2016. No new infiltrate is seen. No pleural effusion is seen. The aorta is somewhat tortuous. There are degenerative changes in the thoracic spine. Impression: Cardiomegaly. No acute disease. Signed by Rambo Erwin MD 04/30/2017 07:24 P
[2017-04-30] MEDS: guaiFENesin ER 600 MG TAB PO SCH (20:16)
[2017-04-30 21:00] VITALS: BP 151/71
[2017-05-01] MEDS: HEPARIN SOD (PORCINE) 5000 UNITS/ML VIAL SC SCH ×3 (05:34→21:54)
[2017-05-01 06:00] VITALS: BP 145/75
[2017-05-01 06:39] LABS: MEAN CORPUSCULAR HGB CONC 33.6 g/dl (32.0-36.5); MEAN CORPUSCULAR VOLUME 95.2 fl (80.0-96.0); RED CELL DISTRIBUTION WIDTH 13.3 % (11.5-14.5); WHITE BLOOD COUNT 7.7 10^3/uL (4.0-10.0)
[2017-05-01 07:02] LABS: ALBUMIN 2.8 GM/DL (3.2-5.2); ALBUMIN/GLOBULIN RATIO 0.82 (1.00-1.93); ALKALINE PHOSPHATASE 85 U/L (45-117); ALT/SGPT 41 U/L (12-78); ANION GAP 7 MEQ/L (8-16); AST/SGOT 27 U/L (15-37); BILIRUBIN,TOTAL 0.3 MG/DL (0.2-1.0); BLOOD UREA NITROGEN 22 MG/DL (7-18); CALCIUM LEVEL 8.9 MG/DL (8.8-10.2); CARBON DIOXIDE LEVEL 25 MEQ/L (21-32); CHLORIDE LEVEL 109 MEQ/L (98-107); CREATININE FOR GFR 1.08 MG/DL (0.55-1.02); GLOMERULAR FILTRATION RATE 52.2 (>39); GLUCOSE, FASTING 179 MG/DL (83-110); MAGNESIUM LEVEL 1.8 MG/DL (1.8-2.4); POTASSIUM SERUM 3.9 MEQ/L (3.5-5.1); SODIUM LEVEL 141 MEQ/L (136-145); TOTAL PROTEIN 6.2 GM/DL (6.4-8.2)
[2017-05-01] MEDS: VITAMIN B COMPLEX/VIT C CAP PO SCH (08:40)
[2017-05-01] MEDS: HumaLOG INSULIN (NovoLOG) PER UNIT SC SCH ×4 (08:40→21:00)
[2017-05-01] MEDS: BISOPROLOL FUMARATE 10 MG TAB PO SCH (08:40)
[2017-05-01] MEDS: guaiFENesin ER 600 MG TAB PO SCH ×2 (08:40→21:53)
[2017-05-01] MEDS: FOLIC ACID 1 MG TAB PO SCH (09:00)
--- NOTE | 2017-05-01 11:03 | IPNPDOC ---
Subjective Date Seen The patient was seen on 05/01/17. Subjective Chief Complaint/HPI The patient is a 76-year-old female admitted with a reason for visit of Acute Chronic Renal Failure. Events since last encounter Patient was seen and examined this morning at her bedside. Patient states that she feels better this morning she remembers seeing her son yesterday and having a discussion with him. Patient has a desire to go home but understands that she needs to go to subacute rehabilitation to increase her strength. Patient has no other complaints this morning. She slept well overnight with no problems.Per Nursing the patient had one event where she turned on her bed and urinated all over the floor, per patient she does not remember this event at all. Yesterday Dr. Villalobos and Dr. Luque had a long extensive discussion with her son. Who wanted an update on his mother for he states there are her acute decline is very rapid and is not back to baseline. We ordered a head CT and chest x-ray yesterday which showed no acute processes. Patient's urine for urinalysis still needs to be collected. General: Denies: Chills, Fatigue Constitutional: Denies: Chills, Fever Pulmonary: Denies: Dyspnea, Cough Cardiovascular: Denies: Chest Pain, Palpitations Gastrointestinal: Denies: Nausea, Vomiting, Abdominal Pain, Diarrhea, Constipation Genitourinary: Denies: Dysuria Musculoskeletal: Reports: Leg Pain (bilateral calves sensitive to touch no pain on ambulation) Neurological: Reports: Weakness Psych: Denies: Memory Issues (patient denies any memory problems) Objective Physical Examination General Exam: Positive: Alert, Cooperative, No Acute Distress Chest Exam: Positive: Clear to auscultation, Normal air movement, Negative: Rales, Rhonchi, Wheezing Heart Exam: Positive: Rate Normal, Regular Rhythm, Normal S1, Normal S2, Negative: Murmurs, Rubs Abdomen Exam: Positive: Normal bowel sounds, Soft, Other (morbidly obese), Negative: Tenderness Extremity Exam: Positive: Normal pulses, Tenderness (Bilaterally on calves), Negative: Clubbing, Cyanosis, Edema, Swelling Skin Exam: Positive: Breakdown (Bilateral arterial insufficiency in LE) Neuro Exam: Positive: Strength at 5/5 X4 ext (Equal bilaterally) Assessment /Plan Assessment 1. Weakness -Diffuse body weakness. EEG on 04/28 was only remarkable for minimal encephalopathy. Patient has been told to stop herbal Guggal as this may be causing myositis. Patient has been working with PT and OT with improvement. PT and nursing were consulted today, and both agree that PMR would be too strenuous for the patient at this time. Will continue PT and OT today and monitor for improvement. Consulted Social Service to find a subacute rehab more appropriate for the patient. 2. Leg pain. Patient states she has had this pain for a week or two. Ultrasound yesterday showed no DVTs. Per nursing, patient refuses Dane stockings because her legs are very tender and highly sensitive to touch. Will continue with Heparin. 3. Metabolic encephalopathy: Multifactorial. EEG confirmed encephalopathy on . 4. Cognitive impairment: Possibly delirium superimposed on some mild dementia. Nursing and PT agree that patient is sometimes not able to follow instructions well without repetition. Repeat head CT on 04/30/2017 was negative for any acute intracranial lesions.Chest x-ray done on 04/30 show no acute disease as well. Urinalysis has been ordered. Patient's delirium state is probably due to underlying dementia and age related sundowning. This morning on examination patient was able to answer all questions appropriately and perform actions when asked. Patient is to continue working with PT until placement at subacute rehabilitation 5. Obstructive sleep apnea. Continue with CPAP. 6. Acute on chronic kidney injury. Resolved. We'll continue to follow her creatinine and kidney function. 7. Spinal stenosis. This may be a contributing factor to her symptoms, although she is not having any maik pain. 8. Neuropathy. This may be contributing factor to her multifactorial gait instability as well. 9. Diabetes. Continue to hold metformin and will continue to control with insulin sliding scale. 10. Upper respiratory infection. We discontinued her antibiotics on 04/27. She remains afebrile with normal white count. No signs of sepsis. No signs of productive sputum. 11. Hypertension. Continue with bisoprolol. 12. Deep vein thrombosis (DVT) prophylaxis. Heparin. Plan/VTE VTE Prophylaxis Ordered?: Yes (Heparin) VS, I&O, 24H, Fishbone Vital Signs/I&O Vital Signs Date Time Temp Pulse Resp B/P (MAP) Pulse Ox O2 Delivery O2 Flow Rate FiO2 05/01/17 08:40 64 145/75 05/01/17 06:00 98.0 18 100 NIPPV (BIPAP/CPAP) Laboratory Data 24H LABS Laboratory Tests 2 04/30/17 12:04: Bedside Glucose (Misc Panel) 242H 04/30/17 16:51: Bedside Glucose (Misc Panel) 299H 04/30/17 20:13: Bedside Glucose (Misc Panel) 233H 05/01/17 06:05: Nucleated Red Blood Cells % (auto) 0.0, Anion Gap 7L, Glomerular Filtration Rate 52.2, Blood Urea Nitrogen 22H, Creatinine 1.08H, Sodium Level 141, Potassium Level 3.9, Chloride Level 109H, Carbon Dioxide Level 25, Calcium Level 8.9, Aspartate Amino Transf (AST/SGOT) 27, Alanine Aminotransferase (ALT/ SGPT) 41, Alkaline Phosphatase 85, Total Bilirubin 0.3, Total Protein 6.2L, Albumin 2.8L, Magnesium Level 1.8, Albumin/Globulin Ratio 0.82L CBC/BMP Laboratory Tests 05/01/17 06:05 Red Blood Count 3.56 L, Mean Corpuscular Volume 95.2, Mean Corpuscular Hemoglobin 32.0, Mean Corpuscular Hemoglobin Concent 33.6, Red Cell Distribution Width 13.3, Calcium Level 8.9, Aspartate Amino Transf (AST/SGOT) 27 , Alanine Aminotransferase (ALT/SGPT) 41, Alkaline Phosphatase 85, Total Bilirubin 0.3, Total Protein 6.2 L, Albumin 2.8 L GME ATTESTATION GME ATTESTATION My preceptor for this patient encounter was physically present in the building during the encounter and was fully available. As needed, all aspects of the patient interview, examination, medical decision making process, and medical care plan development were reviewed and approved by the preceptor. Preceptor is aware and concurs with the plan as stated in the body of this note and will attest to such by his/her cosignature. ATTENDING NOTE I have had the opportunity to review this case in detail with the resident and discuss the current treatment plan as outlined above. A member of the hospitalist team will continue to follow this patient daily during her acute hospitalization. Additionally, I had the opportunity both yesterday and today to have a pleasant discussion with patient's family members (both sons and her partner Hamida) regarding Ms. Mcgrath's delirium and the frustration of how protracted her recovery seems to be. We reviewed her workup thus far. We discussed possible confounding factors that could be contributing to her confusion. Upon admission she was being treated with antibiotics for a presumed URI, using herbal supplements and she demonstrated mild Acute Kidney injury/dehydration: all of which individually or in combination could contribute to her delirium. I had the opportunity to review her labs and gave reassurances that they look relatively stable (normal white count, negative urinalysis, normal electrolytes, renal function likely returned to baseline, liver function testing is normal, Acetylcholine receptor antibody is negative for myasthenia gravis, thyroid profile unremarkable, and a normal ammonia level on 04/24/2017. She did have a mildly elevated ESR/CRP but a normal aldolase and CK level. 12 lead ECG LBB similar to ECG on 06/03/16 and negative troponin). Yesterday her noncontrast Head CT resulted the following findings: Vascular calcification and diffuse moderate atrophy. Small vessel changes are noted. 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 No acute intracranial abnormality. Her previous Brain MRI (04/24/2017) indicated Small vessel ischemic disease, moderate volume loss and left cerebellopontine angle cisterna acoustic neuroma. The ventricular system and cortical sulci are dilated consistent with moderate volume loss. We repeated a chest xray and it demonstrated cardiomegaly but no acute disease and again repeated a urinalysis that did not indicate any source of infection. Additional studies we reviewed includes: -Bilateral lower extremity duplex ultrasound negative for DVT. -Cervical MRI: There is cervical spondylosis at the C4-5 through C7-T1 levels without spinal cord compression. -Lumbar spine MRI: Broad disc osteophyte complexes and disc bulges at L2/L3 and L3/L4 causing moderate bilateral neural foraminal narrowing. No evidence of central canal stenosis. Surgical fusion at L4/L5 appears grossly intact. No acute osseous abnormality. Renal ultrasound: Unremarkable ultrasound examination of the kidneys. Her finger stick blood sugars have been running a little higher so I adjusted her insulin to now include levemir 8units daily starting today along with sliding scale coverage with meals. Her Blood pressure has been running a little high, we can add on Norvasc 5 mg daily with hold parameters. I did notice that her cbc suggested a mild macrocytosis: we will check a b12 and folate level on her. In the mean time I'd like to add MVI, thiamine and folic acid daily to her PO meds. Only other pertinent lab I can think to add at this point would be an RPR. That has been ordered and pending. Again we discussed the EEG results had showed presence of minimal generalized slowing consistent with minimal encephalopathy due to multiple potential causes and no epileptiform abnormalities were seen. Dr. King (Neurology) was kind enough to stop by and re-evaluate the patient for us last evening and explained to the family that she likely has metabolic encephalopthy related to the acute illness she was admitted for, and that unfortunately, as in some cases, patients may improve regarding the original underlying issue but the confusion and issues with physical deconditioning may lag improvement. I explained to the family and the patient that acute delirium has a variable/ unpredictable length of recovery, at times can be very frustrating and it occasionally takes several days to weeks to return to baseline. Some confounding factors for her may be related to age, likely underlying dementia ( as referenced by neurology), underlying comorbidities and chronic medical issues. My recommendation is that for the weekend we stay the course with PT/ OT. Also, I recommended to the family that it would be helpful to bring in things from home for stimuli, such as a familiar picture, blanket, ortiz, etc. We also discussed that on Wednesday, our Patient fitness and wellness coordinator, PFS, PT/OT , acute rehab and hospitalist would be discussing her care during care rounds and this would be a great opportunity to regroup. Additionally, the neurology service would likely be changing providers taking call. I would be happy to see if we could reconsult neurology at that time to request a fresh set of eyes. I believe that our neurosurgeon may be available on Wednesday to review the case if need be. Also, I explained that if they would like for me to discuss with her neurologist in [place] when he is in the office next, that it would be doable as well. The patient's partner informed me that she has tried multiple time to get hold of Mable's neurologist without success. This can be tried again on Wednesday if they'd like. They expressed to me their appreciation for taking time to talk to them and again I explained that I totally understood how frustrating this process must be, but in my professional opinion not unusual for an elderly patient with delirium to take time to rebound. ELDA CHOWDARY,DO May 01, 2017 11:03 HAVEN VILLALOBOS DO May 01, 2017 17:52
[2017-05-01 14:00] VITALS: BP 169/74
[2017-05-01] MEDS: LEVEMIR (INSULIN DETEMIR) 1 UNITS/0.01ML SC SCH (18:24)
[2017-05-01] MEDS ORDERED: amLODIPine 5 MG TAB PO ONE (19:00)
[2017-05-01 22:00] VITALS: BP 128/58
[2017-05-02 02:00] VITALS: BP 142/75
[2017-05-02] MEDS: HEPARIN SOD (PORCINE) 5000 UNITS/ML VIAL SC SCH ×3 (05:07→21:32)
[2017-05-02 06:03] LABS: MEAN CORPUSCULAR HEMOGLOBIN 31.7 pg (27.0-33.0); MEAN CORPUSCULAR HGB CONC 33.3 g/dl (32.0-36.5); MEAN CORPUSCULAR VOLUME 95.2 fl (80.0-96.0); RED CELL DISTRIBUTION WIDTH 13.3 % (11.5-14.5); WHITE BLOOD COUNT 7.9 10^3/uL (4.0-10.0)
[2017-05-02 06:25] LABS: ALBUMIN 2.9 GM/DL (3.2-5.2); ALBUMIN/GLOBULIN RATIO 0.85 (1.00-1.93); BILIRUBIN,TOTAL 0.3 MG/DL (0.2-1.0); CALCIUM LEVEL 8.5 MG/DL (8.8-10.2); CREATININE FOR GFR 1.1 MG/DL (0.55-1.02); GLOMERULAR FILTRATION RATE 51.1 (>39); MAGNESIUM LEVEL 1.9 MG/DL (1.8-2.4); TOTAL PROTEIN 6.3 GM/DL (6.4-8.2)
[2017-05-02] MEDS: THIAMINE 100 MG TAB PO SCH ×2 (08:58→09:00)
[2017-05-02] MEDS: MULTIVITAMINS/MINERALS THERAP 1 TAB PO SCH ×2 (08:58→09:00)
[2017-05-02] MEDS: guaiFENesin ER 600 MG TAB PO SCH ×2 (08:58→21:32)
[2017-05-02] MEDS: amLODIPine 5 MG TAB PO SCH (08:59)
[2017-05-02] MEDS: VITAMIN B COMPLEX/VIT C CAP PO SCH (08:59)
[2017-05-02] MEDS: BISOPROLOL FUMARATE 10 MG TAB PO SCH (09:00)
[2017-05-02] MEDS: FOLIC ACID 1 MG TAB PO SCH (09:00)
[2017-05-02] MEDS: LEVEMIR (INSULIN DETEMIR) 1 UNITS/0.01ML SC SCH (09:01)
[2017-05-02] MEDS: HumaLOG INSULIN (NovoLOG) PER UNIT SC SCH ×4 (09:01→21:32)
[2017-05-02 14:00] VITALS: BP 155/67
--- NOTE | 2017-05-02 14:52 | IPNPDOC ---
Date Seen The patient was seen on 05/02/17. Progress Note SUBJECTIVE: Patient is a 76 yo seen at bedside. Rested comfortably last night. She's pleasant today and conversant. She has episodes last few days of intermittent confusion. Denies: CP, SOB, n/v/d, f/c/r. OBJECTIVE PHYSICAL EXAMINATION: VITAL SIGNS: Please see below. GENERAL: [NAD, A&O to person, place and time, pleasant] HEENT: [PERRLA, throat clear, neck supple] CARDIOVASCULAR: [RRR]. RESPIRATORY: [CTA bilaterally]. ABDOMINAL: [soft, NT/ND, normoactive bowel sounds] EXTREMITIES: [negative] NEUROLOGICAL: [CN's II-XII grossly intact, no gross deficits] PSYCHOLOGICAL: [negative] LABORATORY DATA: Please see below. DVT prophylaxis ordered?: [yes] ASSESSMENT AND PLAN: This is a 76 yo female seen this morning with waxing and waning episodes of confusion, mild delirium and deconditioning. PROBLEMS: 1. Weakness -Diffuse body weakness. Likely multifactorial and requiring ongoing phyiscal therapy. PMR was looking at her last week for potential candidate. Need to reevaluate on wednesday. We'll see how this improves with her treatment. 2. Metabolic encephalopathy: Multifactorial with what appears to be acute episodes of delirium 3. Cognitive impairment: Possibly delirium superimposed on some mild dementia. Family and partner has been concerned about her not responding as quickly as had been hoped for. Dr. King was kind enough to talk to the family two nights ago and reassured them that the neurology group is available for re-consult should the need arise. (Please refer to documentation regarding our family discussion attached to yesterdays progress note) 4. Obstructive sleep apnea. Continue with CPAP. 5. Acute on chronic kidney injury: she appears at baseline 6. Spinal stenosis: may be a contributing factor to generalized weakness. 7. Neuropathy: again this also may be contributing factor to her multifactorial gait instability as well. 8. Diabetes: made adjustments yesterday with adding Levemir and continue with consist carb diet, FSBS AC&HS, SSI per [facility] protocol. Can resume metformin on discharge. 9. Presumed Upper respiratory infection at time of admission: resolved 9. Hypertension: Stable / Continue with bisoprolol. 10. History of Schwannoma: Was recently seen at [facility] by neurology and neurosurgery reviewed MRI. There did not appear to be an immediate need for surgical procedure or intervention. 11. Deep vein thrombosis (DVT) prophylaxis: SQ Heparin. DISPOSITION: Anticipate further discussion tomorrow at multidisciplinary rounds regarding PT/OT, Case management, PMR vs subacute rehab. She does continue with wax/waning episodes of delirium/cognitive confusion. Again the family has been encouraged to bring in familiar objects from home help with delirium. I've spoken to nursing regarding not moving patient unnecessarily to another room during her hospital stay since this could contribute to confusion as well. Concerning her intermittent urinary incontinence: recommend we not place urinary catheter since this could potentially become a source of infection, would be advisable to get her out of bed as tolerated during the day and perhaps scheduled potty breaks. Tomorrow, Dr. Pandey will be rounding on this patient and I've explained that he will have a fresh set of eyes, as well neurology could be reconsulted if need be and we likely will have staff neurosurgery available if need be. . VS, I&O, 24H, Fishbone Vital Signs/I&O Vital Signs Date Time Temp Pulse Resp B/P (MAP) Pulse Ox O2 Delivery O2 Flow Rate FiO2 05/02/17 13:30 Room Air 05/02/17 08:59 66 142/75 05/02/17 02:00 97.6 17 100 I&O- Last 24 Hours up to 6 AM 05/03/17 06:00 Intake Total 270 ml Balance 270 ml Laboratory Data 24H LABS Laboratory Tests 2 05/01/17 17:11: Bedside Glucose (Misc Panel) 184H 05/02/17 05:32: Nucleated Red Blood Cells % (auto) 0.0, Erythrocyte Sedimentation Rate 39H, Anion Gap 9, Glomerular Filtration Rate 51.1, Blood Urea Nitrogen 20H, Creatinine 1.10H, Sodium Level 142, Potassium Level 4.0, Chloride Level 109H, Carbon Dioxide Level 24, Calcium Level 8.5L, Aspartate Amino Transf (AST/SGOT) 26, Alanine Aminotransferase (ALT/SGPT) 47, Alkaline Phosphatase 83, Total Bilirubin 0.3, Total Protein 6.3L, Albumin 2.9L, Magnesium Level 1.9, C- Reactive Protein, Quantitative 0.57H, Albumin/Globulin Ratio 0.85L CBC/BMP Laboratory Tests 05/02/17 05:32 Red Blood Count 3.56 L, Mean Corpuscular Volume 95.2, Mean Corpuscular Hemoglobin 31.7, Mean Corpuscular Hemoglobin Concent 33.3, Red Cell Distribution Width 13.3, Calcium Level 8.5 L, Aspartate Amino Transf (AST/SGOT) 26, Alanine Aminotransferase (ALT/SGPT) 47, Alkaline Phosphatase 83, Total Bilirubin 0.3, Total Protein 6.3 L, Albumin 2.9 L HAVEN VILLALOBOS DO May 02, 2017 14:52
[2017-05-02 22:00] VITALS: BP 152/78
[2017-05-03] MEDS: HEPARIN SOD (PORCINE) 5000 UNITS/ML VIAL SC SCH ×3 (05:33→22:13)
[2017-05-03 06:00] VITALS: BP 148/85
[2017-05-03 06:30] LABS: MEAN CORPUSCULAR HEMOGLOBIN 31.7 pg (27.0-33.0); MEAN CORPUSCULAR HGB CONC 33.4 g/dl (32.0-36.5); MEAN CORPUSCULAR VOLUME 94.9 fl (80.0-96.0); RED CELL DISTRIBUTION WIDTH 13.5 % (11.5-14.5); WHITE BLOOD COUNT 12.9 10^3/uL (4.0-10.0)
[2017-05-03 06:53] LABS: ALBUMIN 3.1 GM/DL (3.2-5.2); ALBUMIN/GLOBULIN RATIO 0.79 (1.00-1.93); BILIRUBIN,TOTAL 0.4 MG/DL (0.2-1.0); CREATININE FOR GFR 1.15 MG/DL (0.55-1.02); GLOMERULAR FILTRATION RATE 48.6 (>39); POTASSIUM SERUM 4.3 MEQ/L (3.5-5.1)
[2017-05-03] MEDS: HumaLOG INSULIN (NovoLOG) PER UNIT SC SCH ×4 (08:21→21:37)
[2017-05-03 09:26] LABS: VITAMIN B12 LEVEL 1001 PG/ML (247-911)
[2017-05-03 09:27] LABS: FOLATE 8.4 NG/ML (>5.4)
[2017-05-03] MEDS: MULTIVITAMINS/MINERALS THERAP 1 TAB PO SCH (09:55)
[2017-05-03] MEDS: amLODIPine 5 MG TAB PO SCH (09:55)
[2017-05-03] MEDS: guaiFENesin ER 600 MG TAB PO SCH ×2 (09:55→22:13)
[2017-05-03] MEDS: VITAMIN B COMPLEX/VIT C CAP PO SCH (09:55)
[2017-05-03] MEDS: THIAMINE 100 MG TAB PO SCH (09:55)
[2017-05-03] MEDS: FOLIC ACID 1 MG TAB PO SCH (09:56)
[2017-05-03] MEDS: LEVEMIR (INSULIN DETEMIR) 1 UNITS/0.01ML SC SCH (09:56)
[2017-05-03] MEDS: BISOPROLOL FUMARATE 10 MG TAB PO SCH (09:56)
[2017-05-03 13:32] LABS: TOTAL PROTEIN 6.2 GM/DL (6.4-8.2)
--- NOTE | 2017-05-03 13:35 | IPN ---
DATE OF SERVICE: 05/03/2017 Mable is seen in [address] [place] [address]. This case has been discussed with Dr. Delgadillo yesterday, and I spoke with Dr. Puga of neurology today. Her medical situation has been well laid out in the last few notes. I met with her partner, Hamida, today. The case was discussed. She indicates that this patient was swimming, active, and baseline mental status only about a month ago. Has had a significant decline in function over the last month, particularly over the last week or two. MRI of the brain has showed the acoustic neuroma, to which she was transferred to [facility] and transferred back, not felt to be neurosurgically appropriate. Electroencephalogram (EEG) was nondiagnostic. The patient has declined since the last neurosurgical evaluation, which was a week ago. PHYSICAL EXAMINATION: 173/89, pulse of 88, respiratory rate 18, 95% oxygen (O2) saturation, and afebrile. She is awake but mumbles her answers. She is vague and only speaks one or two words. Neck supple. Lungs clear. Heart: Regular rate and rhythm. Abdomen: Soft, nontender. She has physical tremor of both arms. She looks encephalopathic. LABORATORIES: Blood sugars have been in the 200 range. White count is 12.9. Erythrocyte sedimentation rate (ESR) is only 39. Electrolytes unremarkable. Creatinine 1.1. B12 and folate normal. TSH normal. RPR normal. Acetylcholine receptor antibody was negative. IMPRESSION: 1. Encephalopathy. The case discussed with Dr. Puga. He will see the patient in consultation. I wonder whether she needs a lumbar puncture. She has acoustic neuroma, which makes a complicated decision. However, I am concerned about her acute decline in function, and I feel the risks may be worth the benefit. I will defer to his judgment on this. 2. Acoustic neuroma. She has the neurosurgeon in [place]. Apparently, was not felt to need intervention. 3. Chronic kidney disease. Stable creatinine. 4. Diabetes. Blood sugars are adequate. 5. Mild macrocystic indices. B12 and folate were normal. I will check for free kappa and lambda light chains and get a protein electrophoresis.
[2017-05-03 14:00] VITALS: BP 121/70
[2017-05-03 16:10] LABS: YEAST LIKE CELL URINE AUTO SMALL
--- NOTE | 2017-05-03 20:10 | REPUSA ---
CT of the head Clinical history: confusion. Protocol: Multiple axial CT images obtained with 5 mm slice thickness were obtained through the head without administration of contrast. Comparison: 04/30/2017. Findings: The ventricles and sulci are symmetric but prominent in size bilaterally. There are periven tricular areas of low attenuation throughout the deep white matter. There is no evidence of acute hem orrhage or infarct. There is no midline shift, mass effect, or extra-axial fluid collection. The osse ous structures are unremarkable. The visualized paranasal sinuses and mastoid air cells are clear. Impression: No acute hemorrhage or infarct. Findings are consistent with moderate age-related atrophy and chronic small vessel ischemic disease.
[2017-05-03 22:00] VITALS: BP 130/80
[2017-05-03] MEDS: ACETAMINOPHEN TAB 650MG DOSE (2X325MG) PO PRN (23:49)
[2017-05-04 06:00] VITALS: BP 157/68
[2017-05-04] MEDS: HEPARIN SOD (PORCINE) 5000 UNITS/ML VIAL SC SCH ×3 (06:00→21:55)
[2017-05-04 06:48] LABS: MEAN CORPUSCULAR HEMOGLOBIN 31.5 pg (27.0-33.0); MEAN CORPUSCULAR HGB CONC 33.4 g/dl (32.0-36.5); MEAN CORPUSCULAR VOLUME 94.4 fl (80.0-96.0); RED CELL DISTRIBUTION WIDTH 13.4 % (11.5-14.5); WHITE BLOOD COUNT 10.6 10^3/uL (4.0-10.0)
[2017-05-04 07:15] LABS: CALCIUM LEVEL 9.3 MG/DL (8.8-10.2); CREATININE FOR GFR 1.11 MG/DL (0.55-1.02); GLOMERULAR FILTRATION RATE 50.6 (>39); POTASSIUM SERUM 3.9 MEQ/L (3.5-5.1)
[2017-05-04] MEDS: THIAMINE 100 MG TAB PO SCH (08:42)
[2017-05-04] MEDS: VITAMIN B COMPLEX/VIT C CAP PO SCH (08:42)
[2017-05-04] MEDS: FOLIC ACID 1 MG TAB PO SCH (08:42)
[2017-05-04] MEDS: guaiFENesin ER 600 MG TAB PO SCH ×2 (08:43→21:56)
[2017-05-04] MEDS: MULTIVITAMINS/MINERALS THERAP 1 TAB PO SCH (08:43)
[2017-05-04] MEDS: LEVEMIR (INSULIN DETEMIR) 1 UNITS/0.01ML SC SCH (08:44)
[2017-05-04] MEDS: HumaLOG INSULIN (NovoLOG) PER UNIT SC SCH ×4 (08:44→21:00)
[2017-05-04] MEDS: amLODIPine 5 MG TAB PO SCH (08:47)
[2017-05-04] MEDS: BISOPROLOL FUMARATE 10 MG TAB PO SCH (08:47)
[2017-05-04 09:52] VITALS: BP 160/80
[2017-05-04 10:43] LABS: ALBUMIN 3.35 GM/DL (3.29-5.55); GAMMA GLOBULIN % 11.4 % (11.1-18.8)
--- NOTE | 2017-05-04 11:32 | IPN ---
DATE: 05/04/2017 Mable is seen in [address] [place] [address]. I met with her son Pedro today. She was seen briefly yesterday by Dr. Puga for a second neurologic opinion. He called me and we discussed the case. I do not see his note yet. He shared my concern about her altered mental status/encephalopathy and felt she would benefit from lumbar puncture to rule out encephalitis or viral infection. However, the patient has a known acoustic neuroma on the left with very minimal mass effect in the adjacent left anterior cerebellum and left lateral feng. Though the risk of herniation is slight, it does exist. We have no neurosurgical capability at [facility] today or for the rest of the week as staff neurosurgeon is on vacation. PHYSICAL EXAMINATION: Blood pressure 128/78, pulse 60, respiratory rate 20, 94% Oxygen saturation. The patient is lying in bed. Eyes are closed. She responds to verbal stimulation. 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 She does not know the month, year or her location. Lungs: Clear. Heart: Regular rhythm. Abdomen soft, nontender. She has a coarse tremor of the upper extremities. Moves arms and legs with equal strength. LABS: Electrolytes are unremarkable. Sodium 138, potassium 3.9, BUN 18, creatinine 1.1, glucose 234. White count 10.6, hemoglobin 12.3, platelets 201. Serum protein electrophoresis unremarkable. B12 was normal. Folate was normal. TSH was normal. Urine culture is pending but negative to date. Repeat CT of the brain did not show any change. IMPRESSION: 1. Encephalopathy. Etiology is unknown. She has been seen by two neurologists here. Family is adamantly requesting transfer to [facility] for neurological evaluation. She is followed there for her acoustic neuroma. Lumbar puncture should be considered but if this is going to be obtained, there should be neurosurgery available for the slight chance that the lumbar puncture leads to any herniation. There is some slight mass effect on the MRI scan though it is light and there is also surrounding edema. It would be safest to have neurosurgery available and we do not have that capacity here this week. I will put a call into [facility] at the patient's family insistence to try to effect a transfer. 2. Chronic kidney disease: Her creatinine is stable. 3. Diabetes: Blood sugar is stable. 4. Acoustic neuroma: Her neurosurgeon is in [place]. ADDENDUM: I called the transfer center at [facility]. Information was given. Request for transfer to neurologic service with neurosurgical backup available. Bed situation is tight and the carpet installation specialist expressed skepticism that a bed would open before tomorrow. I gave them Dr. Valero's contact number as well as the number for the floor as he will be assuming her care tomorrow morning. I discussed with the family the transfer being in progress but not to anticipate transfer today, unless something opens up unexpectedly at [facility]. Addendum dictated: 05/04/2017 1124 Addendum transcribed: 05/04/2017 1141 addi SNELL
[2017-05-04 14:00] VITALS: BP 134/64
[2017-05-04] MEDS: ACETAMINOPHEN TAB 650MG DOSE (2X325MG) PO PRN (21:56)
[2017-05-04 22:00] VITALS: BP 161/78
[2017-05-05 00:07] LABS: FREE KAPPA LIGHT CHAINS SERUM 20.7 mg/L (3.3-19.4); FREE LAMBDA LIGHT CHAINS SERUM 17.9 mg/L (5.7-26.3); KAPPA/LAMBDA RATIO SERUM 1.16 (0.26-1.65)
[2017-05-05 06:00] VITALS: BP 130/79
[2017-05-05] MEDS: HEPARIN SOD (PORCINE) 5000 UNITS/ML VIAL SC SCH ×2 (06:09→14:38)
[2017-05-05 07:01] LABS: MEAN CORPUSCULAR HEMOGLOBIN 31.8 pg (27.0-33.0); MEAN CORPUSCULAR HGB CONC 33.3 g/dl (32.0-36.5); MEAN CORPUSCULAR VOLUME 95.5 fl (80.0-96.0); RED CELL DISTRIBUTION WIDTH 13.8 % (11.5-14.5); WHITE BLOOD COUNT 9.2 10^3/uL (4.0-10.0)
[2017-05-05 07:19] LABS: CALCIUM LEVEL 8.7 MG/DL (8.8-10.2); CREATININE FOR GFR 1.09 MG/DL (0.55-1.02); GLOMERULAR FILTRATION RATE 51.7 (>39); POTASSIUM SERUM 4.1 MEQ/L (3.5-5.1)
[2017-05-05] MEDS: VITAMIN B COMPLEX/VIT C CAP PO SCH (09:11)
[2017-05-05] MEDS: HumaLOG INSULIN (NovoLOG) PER UNIT SC SCH ×2 (09:11→14:38)
[2017-05-05] MEDS: LEVEMIR (INSULIN DETEMIR) 1 UNITS/0.01ML SC SCH (09:11)
[2017-05-05 09:12] VITALS: BP 130/79
[2017-05-05] MEDS: guaiFENesin ER 600 MG TAB PO SCH (09:12)
[2017-05-05] MEDS: BISOPROLOL FUMARATE 10 MG TAB PO SCH (09:12)
[2017-05-05] MEDS: amLODIPine 5 MG TAB PO SCH (09:12)
[2017-05-05] MEDS: MULTIVITAMINS/MINERALS THERAP 1 TAB PO SCH (09:12)
[2017-05-05] MEDS: THIAMINE 100 MG TAB PO SCH (09:12)
[2017-05-05] MEDS: FOLIC ACID 1 MG TAB PO SCH (09:13)
[2017-05-05] MEDS ORDERED: cefTRIAXone SOD 2 GM in D5W 50 ML IV SCH (11:00)
[2017-05-05 14:00] VITALS: BP 139/65
--- NOTE | 2017-05-05 14:47 | DSES ---
DATE OF ADMISSION: 04/25/2017 DATE OF DISCHARGE: 05/05/17 PRIMARY CARE PROVIDER: Dr. Rascon NEUROSURGEON: Dr. Alfaro at [facility] ACCEPTING NEUROSURGEON: Dr. Giraldo ACCEPTING HOSPITALIST: Dr. Cesar Holt at [facility] FINAL DIAGNOSES: 1. Encephalopathy with altered mental status. 2. Underlying acoustic neuroma. 3. Chronic kidney disease. 4. Spinal stenosis. 5. Neuropathy. 6. Type 2 diabetes. 7. Urinary tract infection (UTI). 8. Hypertension. 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 Was given Omnicef for upper respiratory infection. Also reported unsteady gait, as per family, with intermittent altered mental status. The patient has a known history of acoustic neuroma. Followup with neurosurgeon, Dr. Alfaro at [facility], had a procedure done, as per patient, July 2016. 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 Subsequently, the patient was transferred to [facility] for neurosurgery and neurology evaluation. After reviewing MRI, according to family, neurosurgery had told the patient that a compression of cerebellum was only minimal and the tumor compared to previous is only 1 mm bigger. Subsequently, the patient was told to go home and followup with physical therapy. After the patient returned home, the patient did not feel comfortable or safe at home, using her walker. Subsequently, she presented to the [facility] emergency room with the thought of being admitted for further physical therapy and workup. The patient denies any nausea or vomiting. Feels fatigued. Continued to have unsteady gait. Denies any chest pain, pressure, discomfort, fevers or chills. HOSPITALIZATION COURSE: The patient was admitted to the hospital. Physical therapy was done. Neurology was consulted. EEG was done. EEG showed generalized slowing consistent with minimal encephalopathy. Further MRI of the lumbar spine, cervical spine was also done and shows evidence of spinal stenosis and cervical spondylosis. 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 Subsequently, decision was made with family that the patient should be transferred to tertiary care with neurosurgical coverage. Initially called [facility] for transfer. The patient was wait listed for 2 days. Around that time, the patient continues to be more confused. Subsequently called Dylan Fritz at [place] with no bed. I subsequently called [facility]. We will arrange transfer. The patient is currently accepted to [facility] for further neurosurgical followup and evaluation. VITAL SIGNS: Temperature 97.6, pulse 72, respirations 18, blood pressure 130/79 , pulse oximetry 95%. PHYSICAL EXAMINATION: GENERAL: The patient is arousable, a bit confused. Follows simple commands. HEENT: Normocephalic, atraumatic. PULMONARY: Bilaterally clear to auscultation. CARDIAC: Regular rate and rhythm. Normal S1, S2. ABDOMEN: Soft, nontender. Positive bowel sounds. EXTREMITIES: No clubbing, cyanosis or edema. NEUROLOGIC: Bilateral upper and lower extremities are very weak. Limited exam secondary to weakness and altered mental status. LABORATORY DATA: WBC 9.2, hemoglobin and hematocrit 12/36, platelets 189. Chemistry: Sodium 136, potassium 4.1, chloride 106, bicarbonate 22, BUN 22, creatinine 1.09. INPATIENT MEDICATIONS: - Rocephin 2 mg IV every 24 hours - Mucinex 600 mg by mouth twice a day - acetaminophen as needed - Norvasc 5 mg by mouth daily - Zebeta 10 mg by mouth daily - folic acid 1 mg by mouth daily - heparin subcutaneously 5000 units every 8 hours - Levemir 8 units subcutaneously daily - mealtime insulin - multivitamin one tablet by mouth daily - thiamine 100 mg by mouth daily - vitamin B complex by mouth daily DISCHARGE INSTRUCTIONS: The patient is transferred to [facility] for further evaluation and neurosurgical followup. [facility]
== END 2017-05-05 15:32 | disposition short-term general hospital (02) | DRG 70 ==
LOC: M ED 12:50 → M ED INP 19:07 → M MSPAV 22:13 → M MS4PR 04-27 10:45 → M MSPAV 05-01 13:29
PROVIDERS: ADMIT Internal Medicine; ATTEND Hospitalist
DX: G93.41 Metabolic encephalopathy (principal); G93.6 Cerebral edema; N17.9 Acute kidney failure, unspecified; N39.0 Urinary tract infection, site not specified; R53.1 Weakness; D33.3 Benign neoplasm of cranial nerves; E11.51 Type 2 diabetes mellitus with diabetic peripheral angiopathy without gangrene; I12.9 Hypertensive chronic kidney disease with stage 1 through stage 4 chronic kidney disease, or unspecified chronic kidney disease; N18.3 Chronic kidney disease, stage 3 (moderate); G47.33 Obstructive sleep apnea (adult) (pediatric); E78.5 Hyperlipidemia, unspecified; I44.7 Left bundle-branch block, unspecified; Z91.040 Latex allergy status; Z91.018 Allergy to other foods; Z96.652 Presence of left artificial knee joint; Z87.891 Personal history of nicotine dependence; Z79.899 Other long term (current) drug therapy

== ENCOUNTER → 2017-06-29 | Outpatient (REF) | payer MEDICARE, OTHER ==
[~2017-06-29] MED LIST changes: +CEFD1CAP8 PO; +D 501TAB PO
== END ==
LOC: M LAB REF 11:06
PROVIDERS: ATTEND Internal Medicine
DX: R19.7 Diarrhea, unspecified (principal)

== ENCOUNTER → 2017-09-24 | Outpatient (REF) | payer MEDICARE, OTHER ==
[2017-09-28 14:17] LABS: ALDOSTERONE 1.9 ng/dL (0.0-30.0)
== END ==
LOC: M LAB REF 13:24
DX: I10 Essential (primary) hypertension (principal)
CPT/HCPCS: 82088

== ENCOUNTER → 2018-07-08 | Outpatient (REF) | payer MEDICARE, OTHER ==
[~2018-07-08] MED LIST changes: -PRED1SUS OD; +PRED1SUS2 OD
[2018-07-08 15:18] LABS: PERCENT SATURATION 17.9 % (13.2-45.0)
[2018-07-08 15:51] LABS: FOLATE 9.1 NG/ML
== END ==
LOC: M LAB REF 14:33
PROVIDERS: ATTEND Internal Medicine
DX: D64.9 Anemia, unspecified (principal)

== ENCOUNTER 2018-11-16 11:08 | Day surgery (SDC) | payer MEDICARE ==
[~2018-11-16] VITALS: Ht 160 cm; Wt 108.4 kg
[~2018-11-16 11:08] MED LIST changes: -/MOM400 PO; -/SENOSTA PO; +AMLO10TA5 PO; +BISO10TA13 PO; -CALC PO; -D 501TAB PO; +D3 U5000 PO; -DOCU10ELUD PO; +DOCU5LIQ PO; +GLIM2TAB PO; +ICAPTAB PO; +LISI-538 PO; +LOSA100T50 PO; +MAGN400C PO; +METF500T4 PO; +MILK10SU PO; +NS 1,000 ML IV ONE; +OXYC1TAB23 PO; +OYST1TAB PO; -PERCOCET PO; +RA B1TAB7 PO; +RA K500C PO; +SENO1TAB PO; +SPIR-10 PO; +VITA500030 PO; +VITA500C24 PO; +[UNRECOGNIZED DRUG - CODE] PO
[2018-11-16] MEDS ORDERED: PROPOFOL 200 MG/20 ML VIAL As Ordered ONE (13:32)
--- NOTE | 2018-11-16 13:45 | ROOR ---
Patient Name: Mable Mcgrath Procedure Date: 11/16/2018 1:18 PM Date of : 1940 Age: 78 Room: [facility] Gender: Female Note Status: Finalized Procedure: Total Colonoscopy to Cecum + Cold Snare Polypectomy + Hemoclips Indications: Iron deficiency anemia Providers: Arnaud Connelly MD Referring MD: RENATA JURADO JR, MD Requesting Provider: Medicines: Monitored Anesthesia Care Complications: No immediate complications. Procedure: Pre-Anesthesia Assessment: - The heart rate, respiratory rate, oxygen saturations, blood pressure, adequacy of pulmonary ventilation, and response to care were monitored throughout the procedure. The Colonoscope was introduced through the anus and advanced to the cecum, identified by appendiceal orifice and ileocecal valve. The colonoscopy was performed without difficulty. The patient tolerated the procedure well. The quality of the bowel preparation was good. Findings: The perianal and digital rectal examinations were normal. Non-bleeding internal hemorrhoids were found during retroflexion. The hemorrhoids were small and Grade I (internal hemorrhoids that do not prolapse). Scattered small-mouthed diverticula were found in the recto-sigmoid colon, sigmoid colon and descending colon. Two sessile polyps were found in the rectum. The polyps were small in size. These polyps were removed with a cold snare. Resection and retrieval were complete. A small polyp was found at 30 cm proximal to the anus. The polyp was sessile. The polyp was removed with a cold snare. Resection and retrieval were complete. To prevent bleeding after the polypectomy, one hemostatic clip was successfully placed (MR conditional). There was no bleeding at the end of the procedure. A diminutive polyp was found in the descending colon. The polyp was sessile. The polyp was removed with a cold snare. Resection and retrieval were complete. A medium polyp was found in the ascending colon. The polyp was sessile. The polyp was removed with a cold snare. Resection and retrieval were complete. To prevent bleeding after the polypectomy, one hemostatic clip was successfully placed (MR conditional). There was no bleeding at the end of the procedure. The exam was otherwise without abnormality on direct and retroflexion views. Impression: - Non-bleeding internal hemorrhoids. - Diverticulosis in the recto-sigmoid colon, in the sigmoid colon and in the descending colon. - Two small polyps in the rectum, removed with a cold snare. Resected and retrieved. - One small polyp at 30 cm proximal to the anus, removed with a cold snare. Resected and retrieved. Clip (MR conditional) was placed. - One diminutive polyp in the descending colon, removed with a cold snare. Resected and retrieved. - One medium polyp in the ascending colon, removed with a cold snare. Resected and retrieved. Clip (MR conditional) was placed. - The examination was otherwise normal on direct and retroflexion views. - The exam was otherwise normal to the cecum. Recommendation: - Patient has a contact number available for emergencies. The signs and symptoms of potential delayed complications were discussed with the patient. Return to normal activities tomorrow. Written discharge instructions were provided to the patient. - High fiber diet. - Discharge patient to home. - Continue present medications. - Await pathology results. - Telephone GI clinic for pathology results in 1 week. - Repeat colonoscopy for symptoms only. - Return to referring physician. - The findings and recommendations were discussed with the patient's family. Arnaud Connelly MD Arnaud Connelly MD 11/16/2018 1:44:35 PM Electronically signed by Arnaud Connelly MD Number of Addenda: 0 Note Initiated On: 11/16/2018 1:18 PM Estimated Blood Loss: Estimated blood loss: none.
[2018-11-16 14:20] VITALS: BP 157/67
== END 2018-11-16 14:30 | disposition home or self-care (01) ==
LOC: M OPP 11:08
PROVIDERS: ATTEND Internal Medicine Gastroenterology
DX: K64.0 First degree hemorrhoids (principal); K62.1 Rectal polyp; K63.5 Polyp of colon; D12.2 Benign neoplasm of ascending colon; K57.30 Diverticulosis of large intestine without perforation or abscess without bleeding; Z79.84 Long term (current) use of oral hypoglycemic drugs; Z79.899 Other long term (current) drug therapy; Z87.891 Personal history of nicotine dependence; Z91.040 Latex allergy status; Z91.018 Allergy to other foods

== ENCOUNTER → 2018-12-20 | Outpatient (REF) | payer MEDICARE ==
[~2018-12-20] MED LIST changes: -NS 1,000 ML IV ONE
== END ==
LOC: M LAB REF 12:29
PROVIDERS: ATTEND Physician Assistant Medical
DX: N39.0 Urinary tract infection, site not specified (principal)

== ENCOUNTER → 2019-10-10 | Outpatient (CLI) | payer MEDICARE ==
[~2019-10-10] MED LIST changes: -GLIM2TAB PO; +GLIM2TAB4 PO; +METF-791 PO; -METF500T4 PO
[2019-10-10 11:32] LABS: INFLUENZA A AMPLIFICATION NEGATIVE (NEGATIVE); INFLUENZA B AMPLIFICATION NEGATIVE (NEGATIVE)
== END ==
LOC: M LABSMTC 10:15
PROVIDERS: ATTEND Family Medicine
DX: Z11.59 Encounter for screening for other viral diseases (principal); Z20.828 Contact with and (suspected) exposure to other viral communicable diseases
CPT/HCPCS: 87502; U0002

== ENCOUNTER → 2020-01-18 | Outpatient (CLI) | payer MEDICARE ==
[~2020-01-18] MED LIST changes: -METF-791 PO; +METF-838 PO; +VITAD1000T PO
== END ==
LOC: M LABSMTC 10:32
PROVIDERS: ATTEND Anesthesiology
DX: Z03.818 Encounter for observation for suspected exposure to other biological agents ruled out (principal); Z11.59 Encounter for screening for other viral diseases
CPT/HCPCS: C9803; U0003

== ENCOUNTER 2020-01-23 09:00 | Day surgery (SDC) | payer MEDICARE ==
[~2020-01-23] VITALS: Ht 162.6 cm; Wt 111.1 kg
[~2020-01-23 09:00] MED LIST changes: -AMLO10TA5 PO; +AMLO1TAB25 PO; +D31000TA2 PO; -VITAD1000T PO
[2020-01-23] MEDS: NS 1,000 ML IV ONE ×2 (09:17→09:50)
[2020-01-23] MEDS ORDERED: propofoL 200 MG/20 ML VIAL As Ordered ONE ×2 (09:59→10:48)
[2020-01-23] MEDS ORDERED: LIDOCAINE 2% 100MG/5ML SDV (FOR ANES.) As Ordered ONE (10:00)
[2020-01-23] MEDS ORDERED: ePHEDrine SULFATE 25 MG/5 ML(5MG/ML) SYRINGE As Ordered ONE (10:29)
--- NOTE | 2020-01-23 10:54 | ROOR ---
Patient Name: Mable Mcgrath Procedure Date: 01/23/2020 10:17 AM Date of : 1940 Age: 79 Room: [facility] Gender: Female Note Status: Finalized Procedure: Total Colonoscopy to Cecum + Cold Snare Polypectomy Indications: High risk colon cancer surveillance: Personal history of colonic polyps, High risk colon cancer surveillance: Personal history of adenoma with villous component Providers: Arnaud Connelly MD Referring MD: RENATA JURADO JR, MD Requesting Provider: Medicines: Monitored Anesthesia Care Complications: No immediate complications. Procedure: Pre-Anesthesia Assessment: - The heart rate, respiratory rate, oxygen saturations, blood pressure, adequacy of pulmonary ventilation, and response to care were monitored throughout the procedure. The Colonoscope was introduced through the anus and advanced to the cecum, identified by appendiceal orifice and ileocecal valve. The colonoscopy was performed without difficulty. The patient tolerated the procedure well. The quality of the bowel preparation was excellent. Findings: The perianal and digital rectal examinations were normal. Non-bleeding internal hemorrhoids were found during retroflexion. The hemorrhoids were small and Grade I (internal hemorrhoids that do not prolapse). Scattered small-mouthed diverticula were found in the recto-sigmoid colon, sigmoid colon and descending colon. A medium polyp was found in the mid ascending colon. The polyp was carpet-like. The polyp was removed with a cold snare. Resection and retrieval were complete. A small polyp was found at 60 cm proximal to the anus. The polyp was sessile. The polyp was removed with a cold snare. Resection and retrieval were complete. The exam was otherwise without abnormality on direct and retroflexion views. Impression: - Non-bleeding internal hemorrhoids. - Diverticulosis in the recto-sigmoid colon, in the sigmoid colon and in the descending colon. - One medium polyp in the mid ascending colon, removed with a cold snare. Resected and retrieved. - One small polyp at 60 cm proximal to the anus, removed with a cold snare. Resected and retrieved. - The examination was otherwise normal on direct and retroflexion views. - The exam was otherwise normal to the cecum. Recommendation: - Patient has a contact number available for emergencies. The signs and symptoms of potential delayed complications were discussed with the patient. Return to normal activities tomorrow. Written discharge instructions were provided to the patient. - High fiber diet. - Discharge patient to home. - Continue present medications. - Await pathology results. - Repeat colonoscopy for surveillance based on pathology results. - Return to referring physician. - Telephone GI clinic for pathology results in 1 week. - The findings and recommendations were discussed with the patient. Arnaud Connelly MD Arnaud Connelly MD 01/23/2020 10:53:50 AM Electronically signed by Arnaud Connelly MD Number of Addenda: 0 Note Initiated On: 01/23/2020 10:17 AM Estimated Blood Loss: Estimated blood loss: none.
[2020-01-23 11:10] VITALS: BP 180/72
== END 2020-01-23 11:28 | disposition home or self-care (01) ==
LOC: M OPP 09:00
PROVIDERS: ATTEND Internal Medicine Gastroenterology
DX: K63.5 Polyp of colon (principal); K64.0 First degree hemorrhoids; K57.30 Diverticulosis of large intestine without perforation or abscess without bleeding; Z86.010 Personal history of colon polyps; E11.9 Type 2 diabetes mellitus without complications; I10 Essential (primary) hypertension; I48.91 Unspecified atrial fibrillation; Z09 Encounter for follow-up examination after completed treatment for conditions other than malignant neoplasm; Z79.84 Long term (current) use of oral hypoglycemic drugs; Z79.899 Other long term (current) drug therapy; Z91.018 Allergy to other foods; Z91.040 Latex allergy status; Z87.891 Personal history of nicotine dependence

== ENCOUNTER → 2020-04-19 | Outpatient (CLI) | payer MEDICARE ==
[~2020-04-19] MED LIST changes: +CHOL1CAP PO; +CYAN100050 PO; +CYCL-707 PO; +GABA-1171 PO; +IBUP200T45 PO; +METH4PACK PO; +MSIR30TA PO; +VITA100T28 PO
--- NOTE | 2020-04-29 17:43 | REP ---
LUMBAR SPINE SERIES: 5-VIEWS HISTORY: Back pain. COMPARISON: 08/09/2013. FINDINGS: The patient is status post laminectomy and fusion at L4-5 with transpedicle screws and interconnecting dorsal fixation rods bilaterally at this level. There is degenerative disc disease at L5-S1, L3-4, L2-3, and L1-2. Degenerative disc narrowing and spur formation is seen at the lower thoracic levels as well. Lateral views demonstrate a stable 5-mm L4-5 spondylolisthesis at the fused L4-5 level. Degenerative disc changes are somewhat more pronounced than they were in 2014 at L3-4 and L2-3, where there is vacuum phenomenon today. There is bridging osteophyte formation on the right laterally at L2-3. Psoas margins are symmetric. There is some sclerosis in the sacroiliac (SI) joints bilaterally. No acute abnormality. IMPRESSION: Status post laminectomy and fusion L4-5. Fairly advanced degenerative disc disease at the other lumbar levels. Somewhat more pronounced than on the 2014 study. MTDD
== END ==
LOC: M ADAMS 15:01
PROVIDERS: ATTEND Physician Assistant
DX: M54.5 Low back pain (principal)

== ENCOUNTER 2020-04-23 11:12 | Observation (INO) | payer MEDICARE ==
[~2020-04-23] VITALS: Ht 160 cm; Wt 113.6 kg
[~2020-04-23 11:12] MED LIST changes: -CHOL1CAP PO; -CYAN100050 PO; -CYCL-707 PO; -GABA-1171 PO; -IBUP200T45 PO; -METH4PACK PO; -MSIR30TA PO; -VITA100T28 PO
[2020-04-23] MEDS ORDERED: IBUP200T45 PO (11:34)
[2020-04-23] MEDS ORDERED: CYCL-707 PO (11:34)
[2020-04-23] MEDS ORDERED: METH4PACK PO (11:34)
[2020-04-23] MEDS ORDERED: PERCOCET 5MG/325MG TAB PO ONE (12:30)
--- NOTE | 2020-04-23 12:52 | REPVR ---
PROCEDURE INFORMATION: Exam: CT Lumbar Spine Without Contrast Exam date and time: 04/23/2020 12:41 PM Age: 79 years old Clinical indication: Low back pain TECHNIQUE: Imaging protocol: Computed tomography images of the lumbar spine without contrast. Radiation optimization: All CT scans at this facility use at least one of these dose optimization techniques: automated exposure control; mA and/or kV adjustment per patient size (includes targeted exams where dose is matched to clinical indication); or iterative reconstruction. COMPARISON: MRI-Spine, L.S. without con 04/25/2017 7:20 PM FINDINGS: Vertebrae: There are vertical rods and pedicle screws at L4 and L5. There is a lumbar dextroscoliosis which may be partially positional. There is 3 mm of grade 1 anterolisthesis of L4 with respect to L5. Normal vertebral body alignment is otherwise preserved. There is multilevel moderate to severe intervertebral disc space loss. There is multilevel facet hypertrophy. L1-L2: No significant disc protrusion. No severe spinal canal stenosis. No significant neural foraminal narrowing. L2-L3: There is a shallow disc osteophyte complex. There is mild facet hypertrophy. There is mild right neural foraminal narrowing. There is mild canal stenosis. L3-L4: There is a diffuse disc osteophyte complex. There is moderate facet hypertrophy. There is moderate bilateral neural foraminal narrowing. There is moderate canal stenosis. L4-L5: There are fusion changes with laminectomy. There is disc bulging/uncovering related to listhesis. There is facet hypertrophy. There is srde-sn-yezzlanb bilateral neural foraminal narrowing. L5-S1: There is a shallow disc osteophyte complex. There is moderate facet hypertrophy. There is moderate right and moderate to severe left neural foraminal narrowing. Soft tissues: Unremarkable. IMPRESSION: 1. Changes reflecting L4/5 fusion. 2. Degenerative disc disease and spondylosis as described. Electronically signed by: Katheryn Evans On 04/23/2020 12:51:57 PM
[2020-04-23 12:59] LABS: BASO % 0.4 % (0.0-1.0); EOS # 0.1 10^3/uL (0.0-0.5); HEMATOCRIT 38.8 % (36.0-47.0); HEMOGLOBIN 12.3 g/dl (12.0-15.5); LYMPH # 1.9 10^3/uL (1.5-5.0); LYMPH % 21.2 % (24.0-44.0); MEAN CORPUSCULAR HEMOGLOBIN 31.5 pg (27.0-33.0); MEAN CORPUSCULAR HGB CONC 31.7 g/dl (32.0-36.5); MEAN CORPUSCULAR VOLUME 99.2 fl (80.0-96.0); MONO # 0.6 10^3/uL (0.0-0.8); NEUTROPHILS # 6.4 10^3/uL (1.5-8.5); NEUTROPHILS % 69.7 % (36.0-66.0); PLATELET COUNT, AUTOMATED 211 10^3/uL (150-450); RED BLOOD COUNT 3.91 10^6/uL (4.00-5.40); WHITE BLOOD COUNT 9.2 10^3/uL (4.0-10.0)
[2020-04-23 13:25] LABS: ERYTHROCYTE SEDIMENTATION RATE 14 mm/hr (0-30)
[2020-04-23 13:27] LABS: ALBUMIN 3.4 GM/DL (3.2-5.2); ALT/SGPT 18 U/L (12-78); BILIRUBIN,DIRECT < 0.1 MG/DL (0.0-0.2); BILIRUBIN,TOTAL 0.3 MG/DL (0.2-1.0); C REACTIVE PROTEIN QUANTITATIV < 0.30 MG/DL (0.00-0.30); LIPASE 201 U/L (73-393); TOTAL PROTEIN 6.9 GM/DL (6.4-8.2)
[2020-04-23] MEDS ORDERED: MORPHINE 2 MG/ML 1ML VIAL (J2270) IV ONE (14:00)
[2020-04-23] MEDS ORDERED: ONDANSETRON 4MG/2ML VIAL IV ONE (14:00)
--- NOTE | 2020-04-23 14:22 | REPVR ---
PROCEDURE INFORMATION: Exam: XR Right Knee Exam date and time: 04/23/2020 2:06 PM Age: 79 years old Clinical indication: Pain; Knee; Right; Additional info: Bony tenderness, best images possible TECHNIQUE: Imaging protocol: XR Right knee. Views: 4 or more views. COMPARISON: No relevant prior studies available. FINDINGS: Bones/joints: Diffuse osteopenia. Chondrocalcinosis. Kuky-lj-awzrtgqs tricompartmental DJD. No acute fracture. No dislocation. Soft tissues: Normal. IMPRESSION: No acute osseous abnormality. Electronically signed by: Odessa Simon On 04/23/2020 14:22:01 PM
--- NOTE | 2020-04-23 14:24 | REPVR ---
PROCEDURE INFORMATION: Exam: XR Right Hip with Pelvis when Performed Exam date and time: 04/23/2020 2:06 PM Age: 79 years old Clinical indication: Hip pain; Right hip; Additional info: Severe pain, no injury TECHNIQUE: Imaging protocol: XR Right hip with pelvis when performed. Views: 2 or 3 views. COMPARISON: CR Spine, Lumbosacral, partial 08/08/2013 11:02 AM FINDINGS: Bones/joints: Mild right sacroiliac joint DJD. No significant right hip joint DJD. No acute fracture. No dislocation. Soft tissues: Metallic clips project over the soft tissues adjacent to the right hip. IMPRESSION: No acute osseous abnormality. Electronically signed by: Odessa Simon On 04/23/2020 14:23:31 PM
--- NOTE | 2020-04-23 15:11 | REPVR ---
PROCEDURE INFORMATION: Exam: US Duplex Right Lower Extremity Veins, Limited Exam date and time: 04/23/2020 2:53 PM Age: 79 years old Clinical indication: Pain; Leg, upper; Right; Additional info: Severe R leg pain, following [address] TECHNIQUE: Imaging protocol: Real-time Duplex ultrasound of the Right Lower Extremity with 2-D gallegos scale, color Doppler flow and spectral waveform analysis with image documentation. Limited exam was focused on the right lower extremity veins. COMPARISON: US Duplex, Ext LOWER veins, bilat 04/29/2017 1:25 PM FINDINGS: Right deep veins: Unremarkable. The common femoral, femoral, proximal profunda femoral and popliteal veins are patent without thrombus. Normal Doppler waveforms. Normal compressibility and/or augmentation response. Right superficial veins: Unremarkable. Saphenofemoral junction is patent without thrombus. Soft tissues: Unremarkable. IMPRESSION: No evidence of deep vein thrombosis. Electronically signed by: Odessa Simon On 04/23/2020 15:10:58 PM
[2020-04-23] MEDS ORDERED: CHOL1CAP PO ×2 (16:37)
[2020-04-23] MEDS ORDERED: CYAN100050 PO (16:37)
[2020-04-23] MEDS ORDERED: GLIM2TAB4 PO (16:37)
[2020-04-23] MEDS ORDERED: VITA100T28 PO (16:37)
[2020-04-23] MEDS ORDERED: PERCOCET 5MG/325MG TAB PO PRN ×2 (16:45)
[2020-04-23] MEDS ORDERED: CYCLOBENZAPRINE 10MG TABLET PO PRN (16:45)
[2020-04-23] MEDS ORDERED: DEXTROSE 50% 50 ML SYRINGE IV PRN (16:45)
[2020-04-23] MEDS ORDERED: ACETAMINOPHEN TAB 650MG DOSE (2X325MG) PO PRN (16:45)
[2020-04-23] MEDS ORDERED: GLUCAGON INJ 1MG VIAL SC PRN (16:45)
[2020-04-23] MEDS ORDERED: GLUCOSE 4GM CHEW TABLET PO PRN (16:45)
--- NOTE | 2020-04-23 17:01 | HPEPDOC ---
[facility] Medical History & Physical Date of Admission Apr 23, 2020 Date of Service: Apr 23, 2020 History and Physical Chief complaint: Presented to the emergency room with worsening back pain shooting down her right leg History of present illness: Patient is an 79-year-old female with a PMHx of HTN, DLP, NIDDM2, Neuropathy, CKD3, Hydrocephalus s/p LAST PICKER shunt (04/2018), Acoustic neuroma and Chronic back pain 2/2 Sciatica who presented to the emergency room today with worsening back pain. Patient reported that on Wednesday she went on a long car drive of approximately 7 hours. She reported that the subsequent day Wednesday she had severe back pain radiating down her right leg. Patient has reported that she has a history of sciatica and is always experienced a right-sided leg pain shooting down her leg. However, this time was worse. Patient reported that she had gone to urgent care on and was given a prednisone taper as well as Flexeril. She reported that there has not been any significant change in her pain. Patient described that this morning her pain was so bad that she and to come to the ER. She describes the pain as a 10/10, occurring as a spasm-like electrical shooting intensity, going down her right leg. Patient reports that it occurs intermittently and last for about 15-20 seconds. Patient denies any loss of control over bowel or bladder. Denies any recent trauma, injury or snapping sounds. Patient reports that she does experience weakness, but this is unchanged from her baseline. Patient denies any acute changes in her sensation; she does report an ongoing history of neuropathy .Patient goes to physical therapy for the last 6 months for her back pain. Patient denies any headache, nausea, vomiting, chest pain, shortness breath, palpitations, cough, abdominal pain consultation, diarrhea, or urinary discomfort. They deny any recent fevers or chills. 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 Bilateral blepharoplasty 1999 Left rotator cuff repair 2001 Left knee replacement 2007 Incarcerated umbilical hernia repair 2012 Laminectomy and fusion L4/L5 2013 Left carpal tunnel release 4014 Left cataract lens replacement 2016 Right cataract lens replacement 2017 Left acoustic neuroma Gamma knife radiation 2017 LAST PICKER shunt placement 2018 Allergies: See below Medications: See below Family History: - No history of malignancies Social History: - Denies the use of alcohol or illicit drugs; Quit smoking 2013 - smoker of 50 years - Denies recent travel or sick contacts - Lives with friend and they share a home - 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; 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 Review of Systems: 10 point review of systems complete, all negative otherwise stated in HPI Physical exam: - Vitals: BP [148/86], HR [73], RR [16], Sat [99%RA], Temp [96.6F] - General: Lying in bed, appears to be comfortable while laying still, AAOx3 - HEENT: NC, AT, PERRLA - CVS: +S1S2, - Murmurs / rubs / gallops - Lungs: Fair air entry bilaterally, No wheezing / rales / rhonchi - Abdomen: Soft, Non-distended, Non-tender - Extremities: No lower extremity edema, No calf tenderness - Neuro: 4/5 at bilateral legs - limited by pain, 5/5 at feet - Skin: No visible rashes Imaging: CT lumbar spine 04/23: 1. Changes reflecting L4/5 fusion. 2. Degenerative disc disease and spondylosis as described. XR knee 04/23: No acute osseous abnormality. Hip XR 04/23: No acute osseous abnormality. Vascular US 04/23: No evidence of deep vein thrombosis. Assessment and Plan: Acute on Chronic Lower back pain - likely 2/2 degenerative disk disease - Patient reports a long-standing history of chronic back pain since her L4/L5 laminectomy and fusion in 2013 - Has continued to work with physical therapy over the last 6 months - Is reported worsening back pain after a long car ride on 04/15 - Patient denies any loss of control of bowel or bladder; strength appears to be 4/5 bilaterally at legs and is limited by pain; strength at feet is 5/5 bilaterally - Imaging noted above - Will admit to med / surg for observation - Will start Percocet and Flexeril; will start Physical therapy Elevated creatinine - Reported history of CKD - Patients baseline from 2016, appears to be 1.2-1.3 - Will hold nephrotoxic medications - Will hold IV fluids for now HTN - Blood pressure appears to be well controlled - Will hold lisinopril and spironolactone - c/w Amlodipine and Bisoprolol DLP - Currently not on medications NIDDM2 - Will start ISS Neuropathy Hydrocephalus s/p LAST PICKER shunt (04/2018) Acoustic neuroma DVT prophylaxis - Will start Heparin Vital Signs Vital Signs Date Time Temp Pulse Resp B/P (MAP) Pulse Ox O2 Delivery O2 Flow Rate FiO2 04/23/20 14:27 16 04/23/20 11:55 Automatic Cuff (NIBP) Left Arm 04/23/20 11:13 96.6 73 99 Room Air Laboratory Data Labs 24H Laboratory Tests 2 04/23/20 12:38: Immature Granulocyte % (Auto) 0.7, Neutrophils (%) (Auto) 69.7H, Lymphocytes (%) (Auto) 21.2L, Monocytes (%) (Auto) 7.0H, Eosinophils (%) (Auto) 1.0, Basophils (%) (Auto) 0.4, Neutrophils # (Auto) 6.4, Lymphocytes # (Auto) 1.9, Monocytes # (Auto) 0.6, Eosinophils # (Auto) 0.1, Basophils # (Auto) 0.0, Nucleated Red Blood Cells % (auto) 0.0, Erythrocyte Sedimentation Rate 14, Total Bilirubin 0.3, Direct Bilirubin < 0.1, Aspartate Amino Transf (AST/SGOT) 9, Alanine Aminotransferase (ALT/SGPT) 18, Alkaline Phosphatase 81, C-Reactive Protein, Quantitative < 0.30, Total Protein 6.9, Albumin 3.4, Albumin/Globulin Ratio 1.0L, Lipase 201 04/23/20 12:48: POC Glucose (Misc Panel) 181H, POC Sodium (Misc Panel) 140, POC Potassium (Misc Panel) 5.2H, POC Chloride (Misc Panel) 107, POC Total CO2 (Misc Panel) 19.0L, POC Blood Urea Nitrogen (Misc Panel 34H, POC Ionized Calcium (Misc Panel) 5.0, POC Creatinine (Misc Panel) 1.5H, POC Hematocrit (Misc Panel) 41.0 CBC/BMP Laboratory Tests 04/23/20 12:38 Home Medications Scheduled Amlodipine Besylate (Amlodipine Besylate) 10 Mg Tablet, 10 MG PO DAILY Ascorbic Acid (Vitamin C) 500 Mg Capsule, 500 MG PO DAILY Bisoprolol Fumarate (Bisoprolol Fumarate) 10 Mg Tablet, 10 MG PO DAILY Cholecalciferol (Vitamin D3) (Vitamin D3) 1,000 Unit Tablet, 5,000 UNITS PO DAILY Cyanocobalamin (Vitamin B-12) (Vitamin B-12) 1,000 Mcg Tablet, 1,000 MCG PO DAILY Glimepiride (Glimepiride) 2 Mg Tablet, 2 MG PO QAM Glimepiride (Glimepiride) 2 Mg Tablet, 6 MG PO QPM Lisinopril (Lisinopril) 20 Mg Tablet, 20 MG PO QHS Metformin HCl (Metformin HCl ER) 500 Mg Tab.er.24h, 1,000 MG PO BID Methylprednisolone (Methylprednisolone) 4 Mg Tab.ds.pk, 1 DOSE PO ASDIRECTED FINISHED PACK 04/23/20 Plant Stanol Heydi (Cholest Off Plus) 450 Mg Capsule, 1 CAP PO QAM Plant Stanol Heydi (Cholest Off Plus) 450 Mg Capsule, 2 CAP PO QHS Spironolactone (Spironolactone) 25 Mg Tablet, 12.5 MG PO DAILY Thiamine Mononitrate (Vit B1) (Vitamin B-1) 100 Mg Tablet, 100 MG PO DAILY Vit A/Vit C/Vit E/Zinc/Copper (Icaps Areds Formula Dr Tablet) 1 Each Tablet.dr, 1 TAB PO BID Vitamin B Complex (B Complex) 1 Each Tablet, 1 TAB PO DAILY Scheduled PRN Cyclobenzaprine HCl (Cyclobenzaprine HCl) 10 Mg Tablet, 10 MG PO Q8H PRN for MUSCLE SPASMS Ibuprofen (Ibu-200) 200 Mg Tablet, 600 MG PO Q6H PRN for PAIN Allergies Coded Allergies: Kiwi (Verified Allergy, Severe, TONGUE AND THROAT SWELLING, 01/16/20) latex (Verified Allergy, Unknown, 01/16/20) CRICKET JANE MD Apr 23, 2020 17:01
[2020-04-23 18:30] VITALS: BP 130/98
[2020-04-23] MEDS: HumaLOG INSULIN (NovoLOG) PER UNIT SC SCH (18:50)
[2020-04-23] MEDS ORDERED: HumaLOG INSULIN (NovoLOG) PER UNIT SC SCH (21:00)
[2020-04-23 22:00] VITALS: BP 135/94
[2020-04-23] MEDS: HEPARIN SOD (PORCINE) 5000UNITS/ML 1ML VIAL/SYRINGE SC SCH (22:18)
[2020-04-24] MEDS: HEPARIN SOD (PORCINE) 5000UNITS/ML 1ML VIAL/SYRINGE SC SCH ×2 (05:32→13:24)
[2020-04-24 06:00] VITALS: BP 140/84
[2020-04-24 06:11] LABS: BASO % 0.5 % (0.0-1.0); EOS # 0.2 10^3/uL (0.0-0.5); EOS % 2.5 % (0.0-3.0); HEMATOCRIT 36.7 % (36.0-47.0); LYMPH # 3.9 10^3/uL (1.5-5.0); LYMPH % 48.2 % (24.0-44.0); MEAN CORPUSCULAR HEMOGLOBIN 32.1 pg (27.0-33.0); MEAN CORPUSCULAR HGB CONC 32.7 g/dl (32.0-36.5); MEAN CORPUSCULAR VOLUME 98.1 fl (80.0-96.0); MONO # 0.8 10^3/uL (0.0-0.8); MONO % 9.4 % (0.0-5.0); NEUTROPHILS # 3.2 10^3/uL (1.5-8.5); NEUTROPHILS % 38.9 % (36.0-66.0); PLATELET COUNT, AUTOMATED 184 10^3/uL (150-450); RED BLOOD COUNT 3.74 10^6/uL (4.00-5.40); WHITE BLOOD COUNT 8.2 10^3/uL (4.0-10.0)
[2020-04-24 06:32] LABS: CALCIUM LEVEL 8.4 MG/DL (8.8-10.2); CREATININE FOR GFR 1.52 MG/DL (0.55-1.30); GLOMERULAR FILTRATION RATE 34.9 (>32); MAGNESIUM LEVEL 1.9 MG/DL (1.8-2.4); POTASSIUM SERUM 4.8 MEQ/L (3.5-5.1)
[2020-04-24] MEDS: HumaLOG INSULIN (NovoLOG) PER UNIT SC SCH ×2 (07:19→13:23)
[2020-04-24] MEDS ORDERED: MORPHINE 30 MG TAB **MSIR PO PRN ×2 (07:45→15:00)
[2020-04-24] MEDS ORDERED: VITAMIN D 1,000 INTERNATIONAL UNITS TABLET PO SCH (09:00)
[2020-04-24] MEDS ORDERED: THIAMINE 100 MG TAB PO SCH (09:00)
[2020-04-24] MEDS ORDERED: VITAMIN B COMPLEX/VIT C CAP PO SCH (09:00)
[2020-04-24] MEDS ORDERED: bisoproloL fumarate 10 MG TAB PO SCH (09:00)
[2020-04-24] MEDS ORDERED: ASCORBIC ACID 500 MG TAB PO SCH (09:00)
[2020-04-24] MEDS ORDERED: amLODIPine 10 MG TAB PO SCH (09:00)
[2020-04-24] MEDS ORDERED: GABAPENTIN 100 MG CAP PO SCH (09:00)
[2020-04-24] MEDS ORDERED: CYANOCOBALAMIN 500 MCG TAB PO SCH (09:00)
[2020-04-24 09:51] VITALS: BP 142/78
[2020-04-24] MEDS ORDERED: MORPHINE 30 MG TAB **MSIR PO ONE (10:45)
[2020-04-24] MEDS ORDERED: GABA-1171 PO (12:39)
[2020-04-24] MEDS ORDERED: MSIR30TA PO ×2 (12:39→14:12)
[2020-04-24 14:00] VITALS: BP 135/84
--- NOTE | 2020-04-24 15:03 | DS.PDOC ---
Discharge Summary General Date of Admission Apr 23, 2020 at 11:13 Date of Discharge 04/24/2020 Discharge Summary PROCEDURES PERFORMED DURING STAY: [None]. 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 Patient reported that on Wednesday she went on a long car drive of approximately 7 hours. She reported that the subsequent day Wednesday she had severe back pain radiating down her right leg. Patient has reported that she has a history of sciatica and is always experienced a right-sided leg pain shooting down her leg. However, this time was worse. Patient reported that she had gone to urgent care on and was given a prednisone taper as well as Flexeril. She reported that there has not been any significant change in her pain. Patient described that this morning her pain was so bad that she and to come to the ER. She describes the pain as a 10/10, occurring as a spasm-like electrical shooting intensity, going down her right leg. Patient reports that it occurs intermittently and last for about 15-20 seconds. Patient denies any loss of control over bowel or bladder. Denies any recent trauma, injury or snapping sounds. Patient reports that she does experience weakness, but this is unchanged from her baseline. Patient denies any acute changes in her sensation; she does report an ongoing history of neuropathy. Patient goes to physical therapy for the last 6 months for her back pain. Patient was admitted to the hospital service for further evaluation and treatment of her worsening sciatica pain. HOSPITAL COURSE: Acute on Chronic Lower back pain - likely 2/2 degenerative disk disease - Patient reports a long-standing history of chronic back pain since her L4/L5 laminectomy and fusion in 2013 - Has continued to work with physical therapy over the last 6 months - Reported worsening back pain after a long car ride on 04/15 - Patient denies any loss of control of bowel or bladder - This morning patient was able to demonstrate ability to ambulate with walker and has been cleared by physical therapy - Imaging noted above - c/w Morphine short acting and Gabapentin - Patient has worked with physical therapy and has been cleared for discharge home; she has already been established with physical therapy and will be continuing this on discharge Elevated creatinine - likely 2/2 CKD - Cr from admission has remained stable - Patients baseline from 2017, appears to be 1.2-1.3; suspect worsening of CKD - Advised patient to avoid nephrotoxic medications - Will resume diuretics as an outpatient HTN - Blood pressure appears to be well controlled - Will hold lisinopril and spironolactone - c/w Amlodipine and Bisoprolol DLP - Currently not on medications NIDDM2 - c/w ISS Neuropathy Hydrocephalus s/p SYSTEMS SOFTWARE DESIGNER shunt (04/2018) Acoustic neuroma DVT prophylaxis - c/w Heparin DISCHARGE MEDICATIONS: Please see below. ALLERGIES: Please see below. PHYSICAL EXAMINATION ON DISCHARGE: Vitals (See below) General: Lying in bed, appears comfortable while laying in bed, AAOx3 HEENT: NC, AT CVS: +S1S2 Lungs: Fair air entry b/l, auscultation is free of rhonchi, rales or wheezing Abdomen: Soft, nondistended and nontender Extremities: No evidence of edema, - Calf tenderness Neuro: 5/5 strength at bilateral LE - although patient has reported pain LABORATORY DATA: Please see below. IMAGING: CT lumbar spine 04/23: 1. Changes reflecting L4/5 fusion. 2. Degenerative disc disease and spondylosis as described. XR knee 04/23: No acute osseous abnormality. Hip XR 04/23: No acute osseous abnormality. Vascular US 04/23: No evidence of deep vein thrombosis. ACTIVITY: [As tolerated]. DISCHARGE PLAN: Follow-up with primary care provider and orthopedic surgery within the next 7 days Remain compliant with treatment plan and medications Return to ER if you experience any problems DISPOSITION: Home with services DISCHARGE CONDITION: [Stable]. TIME SPENT ON DISCHARGE: 35 minutes. Vital Signs/I&Os Vital Signs Date Time Temp Pulse Resp B/P (MAP) Pulse Ox O2 Delivery O2 Flow Rate FiO2 04/24/20 14:00 98.2 66 18 135/84 (101) 97 Room Air I&O- Last 24 Hours up to 6 AM 04/24/20 06:00 Intake Total 200 ml Output Total 0 ml Balance 200 ml Laboratory Data Labs 24H Laboratory Tests 2 04/23/20 18:44: Bedside Glucose (Misc Panel) 153H 04/23/20 20:01: Bedside Glucose (Misc Panel) 107 04/24/20 05:55: Immature Granulocyte % (Auto) 0.5, Neutrophils (%) (Auto) 38.9, Lymphocytes (%) (Auto) 48.2H, Monocytes (%) (Auto) 9.4H, Eosinophils (%) (Auto) 2.5, Basophils (%) (Auto) 0.5, Neutrophils # (Auto) 3.2, Lymphocytes # (Auto) 3.9, Monocytes # (Auto) 0.8, Eosinophils # (Auto) 0.2, Basophils # (Auto) 0.0, Nucleated Red Blood Cells % (auto) 0.0, Anion Gap 7L, Glomerular Filtration Rate 34.9, Calcium Level 8.4L, Magnesium Level 1.9 04/24/20 08:55: Lab Scanned Report Miscellaneous Lab 04/24/20 11:18: Bedside Glucose (Misc Panel) 188H CBC/BMP Laboratory Tests 04/24/20 05:55 FSBS Laboratory Tests Test 04/23/20 18:44 04/23/20 20:01 04/24/20 11:18 Range/Units Bedside Glucose (Misc Panel) 153 107 188 83-110 MG/DL Discharge Medications Scheduled Amlodipine Besylate (Amlodipine Besylate) 10 Mg Tablet, 10 MG PO DAILY, (Rep orted) Ascorbic Acid (Vitamin C) 500 Mg Capsule, 500 MG PO DAILY, (Reported) Bisoprolol Fumarate (Bisoprolol Fumarate) 10 Mg Tablet, 10 MG PO DAILY, (Reported) Cholecalciferol (Vitamin D3) (Vitamin D3) 1,000 Unit Tablet, 5,000 UNITS PO DAILY, (Reported) Cyanocobalamin (Vitamin B-12) (Vitamin B-12) 1,000 Mcg Tablet, 1,000 MCG PO DAILY, (Reported) Gabapentin (Gabapentin) 100 Mg Capsule, 100 MG PO BID Glimepiride (Glimepiride) 2 Mg Tablet, 2 MG PO QAM, (Reported) Glimepiride (Glimepiride) 2 Mg Tablet, 6 MG PO QPM, (Reported) Lisinopril (Lisinopril) 20 Mg Tablet, 20 MG PO QHS, (Reported) Metformin HCl (Metformin HCl ER) 500 Mg Tab.er.24h, 1,000 MG PO BID, (Reported) Methylprednisolone (Methylprednisolone) 4 Mg Tab.ds.pk, 1 DOSE PO ASDIRECTED, (Reported) FINISHED PACK 04/23/20 Plant Stanol Heydi (Cholest Off Plus) 450 Mg Capsule, 1 CAP PO QAM, (Reported) Plant Stanol Heydi (Cholest Off Plus) 450 Mg Capsule, 2 CAP PO QHS, (Reported) Thiamine Mononitrate (Vit B1) (Vitamin B-1) 100 Mg Tablet, 100 MG PO DAILY, (Reported) Vit A/Vit C/Vit E/Zinc/Copper (Icaps Areds Formula Dr Tablet) 1 Each Tablet.dr, 1 TAB PO BID, (Reported) Vitamin B Complex (B Complex) 1 Each Tablet, 1 TAB PO DAILY, (Reported) Scheduled PRN Cyclobenzaprine HCl (Cyclobenzaprine HCl) 10 Mg Tablet, 10 MG PO Q8H PRN for MUSCLE SPASMS, (Reported) Ibuprofen (Ibu-200) 200 Mg Tablet, 600 MG PO Q6H PRN for PAIN, (Reported) Morphine Sulfate (Morphine Sulfate) 30 Mg Tablet, 30 MG PO Q8HP PRN for SEVERE PAIN (PS 5-10) Allergies Coded Allergies: Kiwi (Verified Allergy, Severe, TONGUE AND THROAT SWELLING, 01/16/20) latex (Verified Allergy, Unknown, 01/16/20) CRICKET JANE MD Apr 24, 2020 15:03
== END 2020-04-24 16:35 | disposition home health service (06) ==
LOC: M ED 11:12 → M ED INP 11:13 → ENRESERV 16:58 → M MS5PR 18:10
PROVIDERS: ADMIT Internal Medicine; ATTEND Internal Medicine
DX: M54.5 Low back pain (principal); R94.4 Abnormal results of kidney function studies; I12.9 Hypertensive chronic kidney disease with stage 1 through stage 4 chronic kidney disease, or unspecified chronic kidney disease; E78.2 Mixed hyperlipidemia; N18.30 Chronic kidney disease, stage 3 unspecified; E11.40 Type 2 diabetes mellitus with diabetic neuropathy, unspecified; G91.9 Hydrocephalus, unspecified; Z98.2 Presence of cerebrospinal fluid drainage device; H93.3X9 Disorders of unspecified acoustic nerve; M79.661 Pain in right lower leg; Z79.899 Other long term (current) drug therapy; Z91.040 Latex allergy status; Z91.018 Allergy to other foods
CPT/HCPCS: 36415; 72131; 73502; 73564; 80047; 80048; 80076; 83690; 83735; 85025; 85652; 86140; 93971; 96372; 96374; 96375; 97110; 97116; 97530; 99284; G0378; J1644; J2270; J2405

== ENCOUNTER → 2020-05-03 | Outpatient (REF) | payer MEDICARE ==
[~2020-05-03] MED LIST changes: +CHOL1CAP PO; +CYAN100050 PO; +CYCL-707 PO; +GABA-1171 PO; +IBUP200T45 PO; +METH4PACK PO; +MSIR30TA PO; +VITA100T28 PO
== END ==
LOC: M LAB REF 11:58
PROVIDERS: ATTEND Internal Medicine
DX: E87.2 Acidosis (principal)

== ENCOUNTER → 2020-05-10 | Outpatient (REF) | payer MEDICARE | LOC: M LAB REF 09:54 | PROVIDERS: ATTEND Internal Medicine | DX: E87.2 Acidosis (principal) ==

== ENCOUNTER → 2021-01-03 | Outpatient (REF) | payer MEDICARE ==
[~2021-01-03] MED LIST changes: -LISI-538 PO; +LISI20TA33 PO
== END ==
LOC: M LAB REF 16:17
PROVIDERS: ATTEND Internal Medicine
DX: N39.0 Urinary tract infection, site not specified (principal)

== ENCOUNTER → 2021-04-18 | Outpatient (CLI) | payer MEDICARE ==
[~2021-04-18] MED LIST changes: +ACET500P3 PO; +EZET10TA21 PO; +GARLIQUE PO; -IBUP200T45 PO; +IBUP200T46 PO; +TRUL0.5I PO
== END ==
LOC: M LABSMTC 10:31
PROVIDERS: ATTEND Anesthesiology
DX: Z20.828 Contact with and (suspected) exposure to other viral communicable diseases (principal); Z11.52 Encounter for screening for COVID-19

== ENCOUNTER → 2021-04-22 | Outpatient (REF) | payer MEDICARE ==
[~2021-04-22] MED LIST changes: +IBUP200T45 PO; -IBUP200T46 PO
== END ==
LOC: M WUC 15:33
PROVIDERS: ATTEND Physician Assistant
DX: R30.0 Dysuria (principal)

== ENCOUNTER → 2021-06-06 | Outpatient (CLI) | payer MEDICARE ==
[~2021-06-06] MED LIST changes: -IBUP200T45 PO; +IBUP200T46 PO; +LASI20TA3 PO
== END ==
LOC: M LABSMTC 09:49
PROVIDERS: ATTEND Anesthesiology
DX: Z01.812 Encounter for preprocedural laboratory examination (principal); Z20.822 Contact with and (suspected) exposure to COVID-19

== ENCOUNTER 2021-06-11 12:40 | Day surgery (SDC) | payer MEDICARE ==
[~2021-06-11] VITALS: Ht 160 cm; Wt 112.5 kg
[~2021-06-11 12:40] MED LIST changes: +NS 1,000 ML IV ONE
--- OUTSIDE RECORDS SUMMARY | 2021-06-11 12:45 | CCD | Continuity of Care Document ---
Author Author Mable ELIZABETH PA Organization Unknown Address [address] [place] [address] [place] [address] Phone [phone] Care Team Providers Care Event Sales Assistant Name Role Phone Rod Rascon MD [facility] [phone] Problems Description No Information Available Social History Type Date Description Comments Sex Unknown Tobacco Use Start: Unknown End: Unknown Former Cigarette Smo ker 1 Pack Daily x 50 years quit 2007 Smoking Status Reviewed: 04/22/21 Former Cigarette Smoker 1 Pac k Daily x 50 years quit 2007 ETOH Use Occasionally consumes alcohol Allergies, Adverse Reactions, Alerts Description No Known Drug Allergies Medications Active Medications SIG Qnty Indications Ordering Provide r Date Nitrofurantoin Monohyd Macro 100mg Capsules take one tablet by mouth twice a day x 7 days 14caps R3 0.0 Rod Rascon JR., M.D. 04/22/2021 Cyclobenzaprine HCL 10mg Tablets 1 tab by mouth every 8 hours as needed 15tabs M54.41 Rod Rascon JR., M.D. 04/18/2020 Lisinopril 20mg Tablets Unknown Glimepiride 2mg Tablets Unknown Bisoprolol Fumarate 10mg Tablets Unknown Trulicity 0.75 weekly Unknown Ezetimibe-Simvastatin Unknown Vitamin D3 Unknown Vitamin B12 Unknown Icaps Unknown Tylenol With Codeine #3 prn Unknown 0 Tylenol 8 Hour Unknown Immunizations Description No Information Available Vital Signs Date Vital Result Comment 04/22/2021 10:11am BP Systolic 146 mmHg BP Diastolic 80 mmHg Heart Rate 71 /min Respiratory Rate 18 /min O2 % BldC Oximetry 99 % Body Temperature 98.3 F Weight 248.00 lb Height 63 inches 5'3" BMI (Body Mass Index) 43.9 kg/m2 Pain Level 6 04/18/2020 2:23pm BP Systolic 148 mmHg BP Diastolic 90 mmHg Heart Rate 88 /min Respiratory Rate 20 /min O2 % BldC Oximetry 98 % Body Temperature 97.9 F Weight 238.00 lb Height 63 inches 5'3" BMI (Body Mass Index) 42.2 kg/m2 Pain Level 9 Results Test Acquired Date Facility Test Result H/L Range Note Laboratory test finding 04/22/2021 [facility] [address] [place] [address] [phone] Urine Culture <pending> Procedures Date Code Description Status 04/22/2021 71969 Office/Outpatient Established Lo w MDM 20-29 Min Completed Medical Devices Description No Information Available Encounters Type Date Location Provider Dx Diagnosis Office Visit 04/22/2021 8:35a Main Office NISH Castro R30 .0 Dysuria Assessments Date Code Description Provider 04/22/2021 R30.0 Dysuria NISH Renteria Plan of Treatment No Information Available Functional Status Description No Information Available Mental Status Description No Information Available Referrals Description No Information Available
--- OUTSIDE RECORDS SUMMARY | 2021-06-11 12:45 | CCD | Continuity of Care Document ---
Author Author Mable ELIZABETH PA Organization Unknown Address [address] [place] [address] [place] [address] Phone [phone] Care Team Providers Care Manager Cardiac Name Role Phone Rod Rascon MD [facility] [phone] Problems Description No Information Available Social History [...] H/L Range Note Laboratory test finding 04/22/2021 [facility] [address] [place], [place] [id number] [phone] Urine Culture FULL REPORT IN L <SEE NOTE> Normal 1 1 FULL REPORT IN LAB NOTES (eC W and [facility]). ORGANISM 1: KLEBSIELLA PNEUMONIAE COLONY COUNT >100,000 ORGANISM 1: KLEBSIELLA PNEUMONIAE KLEBSIELLA PNEUMONIAE: REACTION TRIMETHOPRIM/SULFAMETHOXAZOLE IV 160mg TMP & 800mg SMXq6h <=20 S TRIMETHOPRIM/SULFAMETHOXAZOLE PO Bactrim DS Bid <=20 S AMPICILLIN IV 500mg q6h >=32 R AMPICILLIN PO 500mg q6h fasting >=32 R GENTAMICIN IV 80mg q8h <=1 S NITROFURANTOIN PO 100mg BID 32 S CEFAZOLIN IV 1gm q8h <=4 S LEVOFLOXACIN IV 500mg qd <=0.12 S LEVOFLOXACIN PO 250mg qd <=0.12 S LEVOFLOXACIN PO 500mg qd <=0.12 S TOBRAMYCIN IV 80mg q8h <=1 S CEFTRIAXONE IV 1gm q24h <=1 S CEFTAZIDIME IV 1gm q8h <=1 S AMPICILLIN/SULBACTAM IV 1.5g q6h 8 S PIPERACILLIN/TAZOBACTAM IV 2.25 gm q6h <=4 S AZTREONAM IV 1gm q8h <=1 S ERTAPENEM IV 1gm qd <=0.5 S MEROPENEM IV 1 gm q8h <=0.25 S MEROPENEM IV 500 mg q8h <=0.25 S TIGECYCLINE IV 50mg q12h 1 S CEFEPIME IV 1 gm q12h <=1 S CEFEPIME IV 2 gm q12h <=1 S EXTD BRD SPCTRM BETA LACTAMASE IV NEGATIVE FOR ESBL Procedures Date Code Description Status 04/22/2021 78664 Office/Outpatient Established Lo w MDM 20-29 Min [...]
--- OUTSIDE RECORDS SUMMARY | 2021-06-11 12:45 | CCD ---
Continuity of Care Document (CCD) Created on: 04/22/2021 Mable Mcgrath External Reference #: [id number] : [id number] Sex: Female Author Author Mable ELIZABETH PA Organization Unknown Address [address] [place] [address] [place] [address] Phone [phone] Care Team Providers Care Client Support Professional Name Role Phone Rod Rascon MD [facility] [phone] Problems Description No Information Available Social History [...] H/L Range Note Laboratory test finding 04/22/2021 [facility] [address] [place] [address] [phone] Urine Culture <pending> Procedures Date Code Description Status 04/22/2021 35043 Office/Outpatient Established Lo w MDM 20-29 Min [...]
--- OUTSIDE RECORDS SUMMARY | 2021-06-11 12:45 | CCD | Continuity of Care Document ---
Author Author Mable [employer] Organization Unknown Address [address], [address] [place] [address] Phone [phone] Care Team Providers Care Writer Technical Publications Name Role Phone Rod Rascon M.D. [employer] [phone] Problems Description No Information Available Social History Type Date Description Comments Sex Unknown ETOH Use Rarely consumes alcohol Tobacco Use Start: Unknown End: Unknown Patient is a former smoker quit 2007 Sun Exposure moderate amount of sun exposure Sun Exposure Tanning bed - Has used in past. No longer using. Sun Exposure Has experienced blistering from sunburns Sun Exposure Does not use sunscreen Allergies and adverse reactions Active Allergies Criticality Reaction | Severity Comments Date Actos Unable to assess criticality Facial swelling 04/17/2020 Medications Active Medications SIG Qnty Indications Ordering Provide r Date Glimepiride Unknown Vitamin B12 Unknown Bisoprolol Fumarate Unknown Vitamin D3 Unknown Amlodipine Besylate 10mg Tablets Unknown Icaps Areds Formula Unknown Trulicity Unknown Immunizations Description No Information Available Vital Signs Date Vital Result Comment 05/20/2021 10:20am BP Systolic 140 mmHg BP Diastolic 84 mmHg Heart Rate 89 /min Weight 248.00 lb 05/20/2020 9:42am BP Systolic 131 mmHg R forearm BP Diastolic 62 mmHg R forearm Weight 250.00 lb Body Temperature 95.4 F Results Description No Information Available Procedures Date Code Description Status 05/20/2021 33397 Office/Outpatient Established Mo d MDM 30-39 Min Completed 05/20/2021 99638 Destruction Benign L esions Other Than Skin Tags Or Cutan Vascular Completed Medical Devices Description No Information Available Encounters Type Date Location Provider Dx Diagnosis Office Visit 05/20/2021 10:00a Main Office BRIDGETT Kimble D22.5 Melanocytic nevi of trunk L82.1 Other seborrheic keratosis R20.8 Other disturbances of skin s ensation L81.4 Other melanin hyperpigmentat ion E83.19 Other disorders of iron meta bolism R60.0 Localized edema Z12.83 Encounter for screening for malignant neoplasm of skin Assessments Date Code Description Provider 05/20/2021 D22.5 Melanocytic nevi of trunk Kim bubbaBRIDGETT Dempsey 05/20/2021 L82.1 Other seborrheic keratosis Annette aneBRIDGETT Dempsey 05/20/2021 R20.8 Other disturbances of skin sensa tion BRIDGETT Kimble 05/20/2021 L81.4 Other melanin hyperpigmentation BRIDGETT Kimble 05/20/2021 E83.19 Other disorders of iron metaboli sm BRIDGETT Kimble 05/20/2021 R60.0 Localized edema BRIDGETT [address] 05/20/2021 Z12.83 Encounter for screening for elsy gnant neoplasm of skin BRIDGETT Kimble Plan of Treatment Future Appointment(s):* 05/20/2022 10:15 am - BRIDGETT Kimble at Main Office 05/20/2021 - BRIDGETT Kimble* D22.5 Melanocytic nevi of trunk* Comments:* Nevi on trunk appear healthy. Monitor for changes. Sun protection and sunscreen use discussed. Discussed if any moles change in shape or color, itch, bleed or burn to contact the office for evaluation sooner than their interval appointment. * L82.1 Other seborrheic keratosis* Comments:* Discussed seborrheic keratoses are benign warty growths on the skin that appear with age and that they are not contagious. The precise cause of Jan K's is unknown although can run in families so genes may play a role Discussed LN2 at length to include that the areas treated will get red, bubble up/blister, maybe get a little weepy, form a scab then heal. Discussed S/E to include scarring, risk of hypopigmentation, bleeding, infectionInformed consent signedLN2 today to SK's located on chest and abdominal due to irritation and tendernessWound care instructions givenInstructed to call with any problems * R20.8 Other disturbances of skin sensation* Comments:* See above. * L81.4 Other melanin hyperpigmentation* Comments:* Solar lentigines - ReassuranceDiscussed that solar lentignes appear from the sun that was received years agoSunscreen use and sun protection discussed. * E83.19 Other disorders of iron metabolism* Comments:* Hemosiderin deposits - Reassurance. * R60.0 Localized edema* Comments:* Reassurance. Reinforced to Mable she should wear her ambulatory stockings as much as possible to help with the edema in her legs, verbalizes understanding. States she "knows what she should be doing but they are very uncomfortable and not very easy to apply so she likes her alpaca socks". Call with problems. * Z12.83 Encounter for screening for malignant neoplasm of skin* Comments:* See above Functional Status Description No Information Available Mental Status Description No Information Available Referrals Description No Information Available
--- OUTSIDE RECORDS SUMMARY | 2021-06-11 12:46 | CCD ---
Author Author [facility] Organization [facility] Address Unknown Phone Unavailable Care Team Providers Care Stereoptician Name Role Phone LePine, M Sarai PERSONAL INVESTMENT ADVISER Unavailable Unavailable LePine, M Sarai PERSONAL INVESTMENT ADVISER Unavailable Unavailable LePine, M Sarai PERSONAL INVESTMENT ADVISER Unavailable Unavailable LePine, M Sarai PERSONAL INVESTMENT ADVISER Unavailable Unavailable LePine, M Sarai PERSONAL INVESTMENT ADVISER Unavailable Unavailable LePine, M Sarai PERSONAL INVESTMENT ADVISER Unavailable Unavailable LePine, M Sarai PERSONAL INVESTMENT ADVISER Unavailable Unavailable LePine, M Sarai PERSONAL INVESTMENT ADVISER Unavailable Unavailable LePine, M Sarai PERSONAL INVESTMENT ADVISER Unavailable Unavailable LePine, M Sarai PERSONAL INVESTMENT ADVISER Unavailable Unavailable LePine, M Sarai PERSONAL INVESTMENT ADVISER Unavailable Unavailable LePine, M Sarai PERSONAL INVESTMENT ADVISER Unavailable Unavailable LePine, M Sarai PERSONAL INVESTMENT ADVISER Unavailable Unavailable LePine, M Sarai PERSONAL INVESTMENT ADVISER Unavailable Unavailable LePine, M Sarai PERSONAL INVESTMENT ADVISER Unavailable Unavailable LePine, M Sarai PERSONAL INVESTMENT ADVISER Unavailable Unavailable LePine, M Sarai PERSONAL INVESTMENT ADVISER Unavailable Unavailable LePine, M Sarai PERSONAL INVESTMENT ADVISER Unavailable Unavailable LePine, M Sarai PERSONAL INVESTMENT ADVISER Unavailable Unavailable LePine, M Sarai PERSONAL INVESTMENT ADVISER Unavailable Unavailable LePine, M Sarai PERSONAL INVESTMENT ADVISER Unavailable Unavailable LePine, M Sarai PERSONAL INVESTMENT ADVISER Unavailable Unavailable LePine, M Sarai PERSONAL INVESTMENT ADVISER Unavailable Unavailable LePine, M Sarai PERSONAL INVESTMENT ADVISER Unavailable Unavailable LePine, M Sarai PERSONAL INVESTMENT ADVISER Unavailable Unavailable LePine, M Sarai PERSONAL INVESTMENT ADVISER Unavailable Unavailable LePine, M Sarai PERSONAL INVESTMENT ADVISER Unavailable Unavailable LePine, M Sarai PERSONAL INVESTMENT ADVISER Unavailable Unavailable LePine, M Sarai PERSONAL INVESTMENT ADVISER Unavailable Unavailable LePine, M Sarai PERSONAL INVESTMENT ADVISER Unavailable Unavailable LePine, M Sarai PERSONAL INVESTMENT ADVISER Unavailable Unavailable LePine, M Sarai PERSONAL INVESTMENT ADVISER Unavailable Unavailable LePine, M Sarai PERSONAL INVESTMENT ADVISER Unavailable Unavailable LePine, M Sarai PERSONAL INVESTMENT ADVISER Unavailable Unavailable LePine, M Sarai PERSONAL INVESTMENT ADVISER Unavailable Unavailable LePine, M Sarai PERSONAL INVESTMENT ADVISER Unavailable Unavailable LePine, M Sarai PERSONAL INVESTMENT ADVISER Unavailable Unavailable LePine, M Sarai PERSONAL INVESTMENT ADVISER Unavailable Unavailable LePine, M Sarai PERSONAL INVESTMENT ADVISER Unavailable Unavailable LePine, M Sarai PERSONAL INVESTMENT ADVISER Unavailable Unavailable LePine, M Sarai PERSONAL INVESTMENT ADVISER Unavailable Unavailable LePine, M Sarai PERSONAL INVESTMENT ADVISER Unavailable Unavailable LePine, M Sarai PERSONAL INVESTMENT ADVISER Unavailable Unavailable LePine, M Sarai PERSONAL INVESTMENT ADVISER Unavailable Unavailable LePine, M Sarai PERSONAL INVESTMENT ADVISER Unavailable Unavailable LePine, M Sarai PERSONAL INVESTMENT ADVISER Unavailable Unavailable LePine, M Sarai PERSONAL INVESTMENT ADVISER Unavailable Unavailable LePine, M Sarai PERSONAL INVESTMENT ADVISER Unavailable Unavailable LePine, M Sarai PERSONAL INVESTMENT ADVISER Unavailable Unavailable LePine, M Sarai PERSONAL INVESTMENT ADVISER Unavailable Unavailable LePine, M Sarai PERSONAL INVESTMENT ADVISER Unavailable Unavailable LePine, M Sarai PERSONAL INVESTMENT ADVISER Unavailable Unavailable LePine, M Sarai PERSONAL INVESTMENT ADVISER Unavailable Unavailable LePine, M Sarai PERSONAL INVESTMENT ADVISER Unavailable Unavailable LePine, M Sarai PERSONAL INVESTMENT ADVISER Unavailable Unavailable LePine, M Sarai PERSONAL INVESTMENT ADVISER Unavailable Unavailable Jay Connelly MD Unavailable Unavailable Jay Connelly MD Unavailable Unavailable Jay Connelly MD Unavailable Unavailable Jay Connelly MD Unavailable Unavailable Jay Connelly MD Unavailable Unavailable Jay Connelly MD Unavailable Unavailable Jay Connelly MD Unavailable Unavailable Jay Connelly MD Unavailable Unavailable Jay Connelly MD Unavailable Unavailable Jay Connelly MD Unavailable Unavailable Jay Connelly MD Unavailable Unavailable Jay Connelly MD Unavailable Unavailable Jay Connelly MD Unavailable Unavailable Jay Connelly MD Unavailable Unavailable Jay Connelly MD Unavailable Unavailable Jay Connelly MD Unavailable Unavailable Jay Connelly MD Unavailable Unavailable Jay Connelly MD Unavailable Unavailable Jay Connelly MD Unavailable Unavailable Jay Connelly MD Unavailable Unavailable Jay Connelly MD Unavailable Unavailable Jay Connelly MD Unavailable Unavailable Jay Connelly MD Unavailable Unavailable Jay Connelly MD Unavailable Unavailable Jay Connelly MD Unavailable Unavailable Jay Connelly MD Unavailable Unavailable Jay Connelly MD Unavailable Unavailable Jay Connelly MD Unavailable Unavailable Jay Connelly MD Unavailable Unavailable Jay Connelly MD Unavailable Unavailable Jay Connelly MD Unavailable Unavailable Jay Connelly MD Unavailable Unavailable Jay Connelly MD Unavailable Unavailable Jay Connelly MD Unavailable Unavailable Jay Connelly MD Unavailable Unavailable Jay Connelly MD Unavailable Unavailable Jay Connelly MD Unavailable Unavailable Jay Connelly MD Unavailable Unavailable Jay Connelly MD Unavailable Unavailable Jay Connelly MD Unavailable Unavailable Jay Connelly MD Unavailable Unavailable Jay Connelly MD Unavailable Unavailable Jay Connelly MD Unavailable Unavailable Jay Connelly MD Unavailable Unavailable Godwin, Jay Lares MD Unavailable Unavailable Godwin, Jay Lares MD Unavailable Unavailable Godwin, Jay Lares MD Unavailable Unavailable Godwin, Jay Lares MD Unavailable Unavailable Godwin, Jay Lares MD Unavailable Unavailable Godwin, Jay Lares MD Unavailable Unavailable Godwin, Jay Lares MD Unavailable Unavailable LETTIERE, A JODIE PA Unavailable Unavailable LETTIERE, A JOIDE PA Unavailable Unavailable LETTIERE, A JODIE PA Unavailable Unavailable LETTIERE, A JODIE PA Unavailable Unavailable LETTIERE, A JODIE PA Unavailable Unavailable LETTIERE, A JODIE PA Unavailable Unavailable LETTIERE, A JODIE PA Unavailable Unavailable LETTIERE, A JODIE PA Unavailable Unavailable LETTIERE, A JODIE PA Unavailable Unavailable LETTIERE, A JODIE PA Unavailable Unavailable LETTIERE, A JODIE PA Unavailable Unavailable LETTIERE, A JODIE PA Unavailable Unavailable LETTIERE, A JODIE PA Unavailable Unavailable LETTIERE, A JODIE PA Unavailable Unavailable LETTIERE, A JODIE PA Unavailable Unavailable LETTIERE, A JODIE PA Unavailable Unavailable LETTIERE, A JODIE PA Unavailable Unavailable LETTIERE, A JODIE PA Unavailable Unavailable LETTIERE, A JODIE PA Unavailable Unavailable LETTIERE, A JODIE PA Unavailable Unavailable LETTIERE, A JODIE PA Unavailable Unavailable LETTIERE, A JODIE PA Unavailable Unavailable LETTIERE, A JODIE PA Unavailable Unavailable LETTIERE, A JODIE PA Unavailable Unavailable LETTIERE, A JODIE PA Unavailable Unavailable LETTIERE, A JODIE PA Unavailable Unavailable LETTIERE, A JODIE PA Unavailable Unavailable LETTIERE, A JODIE PA Unavailable Unavailable LETTIERE, A JODIE PA Unavailable Unavailable LETTIERE, A JODIE PA Unavailable Unavailable LETTIERE, A JODIE PA Unavailable Unavailable Mollison, Precious Wang MD Unavailable Unavailable Mollison, Precious Wang MD Unavailable Unavailable Mollison, Precious Wang MD Unavailable Unavailable Mollison, Precious Wang MD Unavailable Unavailable Mollison, Precious Wang MD Unavailable Unavailable Mollison, Precious Wang MD Unavailable Unavailable Mollison, Precious Wang MD Unavailable Unavailable Mollison, Precious Wang MD Unavailable Unavailable Mollison, Precious Wang MD Unavailable Unavailable Mollison, Precious Wang MD Unavailable Unavailable Mollison, Precious Wang MD Unavailable Unavailable Mollison, Precious Wang MD Unavailable Unavailable Mollison, Precious Wang MD Unavailable Unavailable Mollison, Precious Wang MD Unavailable Unavailable Mollison, Precious Wang MD Unavailable Unavailable Mollison, Precious Wang MD Unavailable Unavailable Mollison, Precious Wang MD Unavailable Unavailable Mollison, Precious Wang MD Unavailable Unavailable Mollison, Precious Wang MD Unavailable Unavailable Mollison, Precious Wang MD Unavailable Unavailable Mollison, W Felipe MD Unavailable Unavailable Precious Helms MD Unavailable Unavailable MollPrecious vaz MD Unavailable Unavailable MollPrecious vaz MD Unavailable Unavailable MollPrecious vaz MD Unavailable Unavailable MollPrecious vaz MD Unavailable Unavailable MollPrecious vaz MD Unavailable Unavailable MollPrecious vaz MD Unavailable Unavailable MollPrecious vaz MD Unavailable Unavailable MollisonPrecious MD Unavailable Unavailable [place]Aren MD Unavailable Unavailable AbiodunAren MD Unavailable Unavailable AbiodunAren MD Unavailable Unavailable [place]Aren MD Unavailable Unavailable AbiodunAren MD Unavailable Unavailable [place]Aren MD Unavailable Unavailable AbiodunAren MD Unavailable Unavailable AbiodunAren MD Unavailable Unavailable [place]Aren MD Unavailable Unavailable [place]Aren MD Unavailable Unavailable [place]Aren MD Unavailable Unavailable [place]Aren MD Unavailable Unavailable [place]Aren MD Unavailable Unavailable [place]Aren MD Unavailable Unavailable [place]Aren MD Unavailable Unavailable AbiodunAren MD Unavailable Unavailable [place]Aren MD Unavailable Unavailable [place]Aren MD Unavailable Unavailable [place]Aren MD Unavailable Unavailable AbiodunAren turcios MD Unavailable Unavailable AbiodunAren MD Unavailable Unavailable [place]Aren MD Unavailable Unavailable [place]Aren turcios MD Unavailable Unavailable AbiodunAren MD Unavailable Unavailable AbiodunAren turcios MD Unavailable Unavailable [place]Aren turcios MD Unavailable Unavailable AbiodunAren turcios MD Unavailable Unavailable AbiodunAren turcios MD Unavailable Unavailable AbiodunAren turcios MD Unavailable Unavailable AbiodunAren turcios MD Unavailable Unavailable [place]Aren MD Unavailable Unavailable [place]Aren turcios MD Unavailable Unavailable AbiodunAren turcios MD Unavailable Unavailable [place]Aren turcios MD Unavailable Unavailable AbiodunAren MD Unavailable Unavailable [place]Aren MD Unavailable Unavailable AbiodunAren MD Unavailable Unavailable AbiodunAren MD Unavailable Unavailable [place]Aren MD Unavailable Unavailable [place]Aren MD Unavailable Unavailable [place]Aren turcios MD Unavailable Unavailable [place]Aren turcios MD Unavailable Unavailable AbiodunAren MD Unavailable Unavailable [place]Aren MD Unavailable Unavailable AbiodunAren MD Unavailable Unavailable AbiodunAren MD Unavailable Unavailable AbiodunAren MD Unavailable Unavailable [place]Aren turcios MD Unavailable Unavailable AbiodunAren MD Unavailable Unavailable AbiodunAren MD Unavailable Unavailable [place]Aren MD Unavailable Unavailable AbiodunAren MD Unavailable Unavailable [place]Aren MD Unavailable Unavailable [place]Aren MD Unavailable Unavailable AbiodunAren MD Unavailable Unavailable [place]Aren MD Unavailable Unavailable AbiodunAren MD Unavailable Unavailable [place]Aren MD Unavailable Unavailable AbiodunAren MD Unavailable Unavailable [place]Aren MD Unavailable Unavailable [place]Aren MD Unavailable Unavailable AbiodunAren MD Unavailable Unavailable [place]Aren MD Unavailable Unavailable [place]Aren MD Unavailable Unavailable AbiodunAren MD Unavailable Unavailable [place]Aren MD Unavailable Unavailable AbiodunAren MD Unavailable Unavailable AbiodunAren turcios MD Unavailable Unavailable [place]Aren turcios MD Unavailable Unavailable [place]Aren MD Unavailable Unavailable AbiodunAren turcios MD Unavailable Unavailable AbiodunAren turcios MD Unavailable Unavailable AbiodunAren turcios MD Unavailable Unavailable AbiodunAren turcios MD Unavailable Unavailable AbiodunAren turcios MD Unavailable Unavailable AbiodunAern turcios MD Unavailable Unavailable [place]Aren turcios MD Unavailable Unavailable AbiodunAren turcios MD Unavailable Unavailable AbiodunAren turcios MD Unavailable Unavailable [place]Aren turcios MD Unavailable Unavailable AbiodunAren turcios MD Unavailable Unavailable AbiodunAren turcios MD Unavailable Unavailable AbiodunAren turcios MD Unavailable Unavailable AbiodunAren turcios MD Unavailable Unavailable [place]Aren turcios MD Unavailable Unavailable AbiodunAren turcios MD Unavailable Unavailable ALICIA, J Jessica ANP Unavailable Unavailable ALICIA, J Jessica ANP Unavailable Unavailable ALICIA, J Jessica ANP Unavailable Unavailable ALICIA, J Jessica ANP Unavailable Unavailable ALICIA, J Jessica ANP Unavailable Unavailable ALICIA, J Jessica ANP Unavailable Unavailable ALICIA, J Jessica ANP Unavailable Unavailable ALICIA, J Jessica ANP Unavailable Unavailable ALICIA, J Jessica ANP Unavailable Unavailable ALICIA, J Jessica ANP Unavailable Unavailable ALICIA, J Jessica ANP Unavailable Unavailable ALICIA, J Jessica ANP Unavailable Unavailable ALICIA, J Jessica ANP Unavailable Unavailable ALICIA, J Jessica ANP Unavailable Unavailable ALICIA, J Jessica ANP Unavailable Unavailable ALICIA, J Jessica ANP Unavailable Unavailable ALICIA, J Jessica ANP Unavailable Unavailable ALICIA, J Jessica ANP Unavailable Unavailable ALICIA, J Jessica ANP Unavailable Unavailable ALICIA, J Jessica ANP Unavailable Unavailable ALICIA, J Jessica ANP Unavailable Unavailable ALICIA, J Jessica ANP Unavailable Unavailable ALICIA, J Jessica ANP Unavailable Unavailable ALICIA, J Jessica ANP Unavailable Unavailable ALICIA, J Jessica ANP Unavailable Unavailable ALICIA, J Jessica ANP Unavailable Unavailable ALICIA, J Jessica ANP Unavailable Unavailable ALICIA, J Jessica ANP Unavailable Unavailable ALICIA, J Jessica ANP Unavailable Unavailable ALICIA, J Jessica ANP Unavailable Unavailable ALICIA, J Jessica ANP Unavailable Unavailable ALICIA, J Jessica ANP Unavailable Unavailable ALICIA, J Jessica ANP Unavailable Unavailable ALICIA, J Jessica ANP Unavailable Unavailable ALICIA, J Jessica ANP Unavailable Unavailable ALICIA, J Jessica ANP Unavailable Unavailable ALICIA, J Jessica ANP Unavailable Unavailable ALICIA, J Jessica ANP Unavailable Unavailable ALICIA, J Jessica ANP Unavailable Unavailable ALICIA, J Jessica ANP Unavailable Unavailable ALICIA, J Jessica ANP Unavailable Unavailable ALICIA, J Jessica ANP Unavailable Unavailable ALICIA, J Jessica ANP Unavailable Unavailable ALICIA, J Jessica ANP Unavailable Unavailable ALICIA, J Jessica ANP Unavailable Unavailable ALICIA, J Jessica ANP Unavailable Unavailable ALICIA, J Jessica ANP Unavailable Unavailable ALICIA, J Jessica ANP Unavailable Unavailable ALICIA, J Jessica ANP Unavailable Unavailable ALICIA, J Jessica ANP Unavailable Unavailable ALICIA, J Jessica ANP Unavailable Unavailable ALICIA, J Jessica ANP Unavailable Unavailable ALICIA, J Jessica ANP Unavailable Unavailable ALICIA, J Jessica ANP Unavailable Unavailable ALICIA, J Jessica ANP Unavailable Unavailable ALICIA, J Jessica ANP Unavailable Unavailable ALICIA, J Jessica ANP Unavailable Unavailable ALICIA, J Jessica ANP Unavailable Unavailable ALICIA, J Jessica ANP Unavailable Unavailable ALICIA, J Jessica ANP Unavailable Unavailable ALICIA, J Jessica ANP Unavailable Unavailable ALICIA, J Jessica ANP Unavailable Unavailable ALICIA, J Jessica ANP Unavailable Unavailable ALICIA, J Jessica ANP Unavailable Unavailable [place], Christopher DO Unavailable Unavailable [place], Christopher DO Unavailable Unavailable [place], Christopher DO Unavailable Unavailable [place], Christopher DO Unavailable Unavailable Abiodun, Christopher DO Unavailable Unavailable Abiodun, Christopher DO Unavailable Unavailable Abiodun, Christopher DO Unavailable Unavailable [place], Christopher DO Unavailable Unavailable [place], Christopher DO Unavailable Unavailable Abiodun, Christopher DO Unavailable Unavailable Abiodun, Christopher DO Unavailable Unavailable GODWIN, A RUSSELL DO Unavailable Unavailable GODWIN, A RUSSELL DO Unavailable Unavailable GODWIN, A RUSSELL DO Unavailable Unavailable GODWIN, A RUSSELL DO Unavailable Unavailable GODWIN, A RUSSELL DO Unavailable Unavailable GODWIN, A RUSSELL DO Unavailable Unavailable GODWIN, A RUSSELL DO Unavailable Unavailable GODWIN, A RUSSELL DO Unavailable Unavailable GODWIN, A RUSSELL DO Unavailable Unavailable GODWIN, A RUSSELL DO Unavailable Unavailable GODWIN, A RUSSELL DO Unavailable Unavailable GODWIN, A RUSSELL DO Unavailable Unavailable GODWIN, A RUSSELL DO Unavailable Unavailable GODWIN, A RUSSELL DO Unavailable Unavailable GODWIN, A RUSSELL DO Unavailable Unavailable GODWIN, A RUSSELL DO Unavailable Unavailable GODWIN, A RUSSELL DO Unavailable Unavailable GODWIN, A RUSSELL DO Unavailable Unavailable GODWIN, A RUSSELL DO Unavailable Unavailable GODWIN, A RUSSELL DO Unavailable Unavailable GODWIN, A RUSSELL DO Unavailable Unavailable GODWIN, A RUSSELL DO Unavailable Unavailable GODWIN, A RUSSELL DO Unavailable Unavailable Hegard, Xuan HARDWOOD FLOOR LAYER Unavailable Unavailable Hegard, Xuan HARDWOOD FLOOR LAYER Unavailable Unavailable Hegard, Xuan HARDWOOD FLOOR LAYER Unavailable Unavailable Hegard, Xuan HARDWOOD FLOOR LAYER Unavailable Unavailable Hegard, Xuan HARDWOOD FLOOR LAYER Unavailable Unavailable Hegard, Xuan HARDWOOD FLOOR LAYER Unavailable Unavailable Hegard, Xuan HARDWOOD FLOOR LAYER Unavailable Unavailable Hegard, Xuan HARDWOOD FLOOR LAYER Unavailable Unavailable Hegard, Xuan HARDWOOD FLOOR LAYER Unavailable Unavailable Hegard, Xuan HARDWOOD FLOOR LAYER Unavailable Unavailable Hegard, Xuan HARDWOOD FLOOR LAYER Unavailable Unavailable Hegard, Xuan HARDWOOD FLOOR LAYER Unavailable Unavailable Hegard, Xuan HARDWOOD FLOOR LAYER Unavailable Unavailable Hegard, Xuan HARDWOOD FLOOR LAYER Unavailable Unavailable Hegard, Xuan HARDWOOD FLOOR LAYER Unavailable Unavailable Hegard, Xuan HARDWOOD FLOOR LAYER Unavailable Unavailable Hegard, Xuan HARDWOOD FLOOR LAYER Unavailable Unavailable Re-disclosure Warning The records that you are about to access may contain information from federally-assisted alcohol or drug abuse programs. If such information is present, then the following federally mandated warning applies: This information has been disclosed to you from records protected by federal confidentiality rules (42 CFR part 2). The federal rules prohibit you from making any further disclosure of this information unless further disclosure is expressly permitted by the written consent of the person to whom it pertains or as otherwise permitted by 42 CFR part 2. A general authorization for the release of medical or other information is NOT sufficient for this purpose. The Federal rules restrict any use of the information to criminally investigate or prosecute any alcohol or drug abuse patient.The records that you are about to access may contain highly sensitive health information, the redisclosure of which is protected by Article 27-F of the [facility] Public Health law. If you continue you may have access to information: Regarding HIV / AIDS; Provided by facilities licensed or operated by the [facility] Office of Mental Health; or Provided by the [facility] Office for People With Developmental Disabilities. If such information is present, then the following [facility] mandated warning applies: This information has been disclosed to you from confidential records which are protected by state law. State law prohibits you from making any further disclosure of this information without the specific written consent of the person to whom it pertains, or as otherwise permitted by law. Any unauthorized further disclosure in violation of state law may result in a fine or senior care sentence or both. A general authorization for the release of medical or other information is NOT sufficient authorization for further disc losure. Allergies and Adverse Reactions Type Description Substance Reaction Status Data Source(s ) Allergy to substance No Known Allergies No known allergies (situation ) SHARON (Demarco Lou MD [facility]) Allergy to substance No Known Allergies No known allergies (situation ) SHARON (Demarco Lou MD [facility]) Family History Family Member Name Family Member Gender Family Member Status Date o f Status Description Data Source(s) Unknown Unknown Problem [facility] ([facility], [facility]) Unknown Female Problem [facility] ([facility]) Unknown Female Encounters Encounter Providers Location Date Indications Data Source(s ) Outpatient Attender: David Ruffin 05/21/2021 11:00:00 AM EDT [facility] ([facility] ) Outpatient Attender: Xuan Mcneil [facility] Main Office 1 07/20/2020 10:00:00 AM EDT [facility] ([facility]) Outpatient Attender: JODIE cerda 04/22/2021 08:35:00 AM EDT [facility] ([facility], [facility]) Outpatient Attender: Arnaud Connelly MD Main Office 03/06/2021 10:45:00 AM EDT [facility] ([facility]) Outpatient Attender: Rod Howard 0 01/03/2021 10:00:00 AM EDT [facility] ([facility] ) <td ID="encounterTypeDescriptionID0">4 M ont follow up with testing</td><td>Russell Connelly DO</td><td>Demarco Mercado MD [facility]</td><td>01/01/2021</td><td>11:59AM</td><td>1:11PM</td><td><content ID="encounterDiagnosisID0-0">Dry Eye Syndrome Both Eyes</content>, <content ID="encounterDiagnosisID0-1">Pseudophakia</content>, <content ID="encounterDiagnosisID0-2">History of Nicotine Dependence</content>, <content ID="encounterDiagnosisID0-3">Essential Hypertension</content>, <content ID="encounterDiagnosisID0-4">Taking Medication For Diabetes Long-term Use of Oral Hypoglycemics</content>, <content ID="encounterDiagnosisID0-5">Diabetes Mellitus Type 2 - Uncomplicated, Controlled</content>, <content ID="encounterDiagnosisID0-6">Macular Degeneration Nonexudative Bilateral Early Dry Stage</content>, <content ID="encounterDiagnosisID0-7">Posterior Capsule Opacification Eccentric Capsule Both Eyes</content></td>[facility] 11:59:00 AM EDT - 01/01/2021 01:11:00 PM EDT Posterior Capsule Opacification Eccentri c Capsule Both EyesPseudophakiaPosterior Capsule Opacification Eccentric Capsule Both EyesPseudophakiaMacular Degeneration Nonexudative Bilateral Early Dry Stage Taking Medication For Diabetes Long-term Use of Oral HypoglycemicsEssential HypertensionHistory of Nicotine DependenceMacular Degeneration Nonexudative Bilateral Early Dry StageTaking Medication For Diabetes Long-term Use of Oral HypoglycemicsEssential HypertensionHistory of Nicotine DependenceDiabetes Mellitus Type 2 - Uncomplicated, ControlledDry Eye Syndrome Both EyesDiabetes Mellitus Type 2 - Uncomplicated, ControlledDry Eye Syndrome Both Eyes SHARON (Demarco Lou MD [facility]) Posterior Capsule Opacification Eccentri c Capsule Both Eyes Pseudophakia Posterior Capsule Opacification Eccentri c Capsule Both Eyes Pseudophakia Macular Degeneration Nonexudative Bilate ral Early Dry Stage Taking Medication For Diabetes Long-term Use of Oral Hypoglycemics Essential Hypertension History of Nicotine Dependence Macular Degeneration Nonexudative Bilate ral Early Dry Stage Taking Medication For Diabetes Long-term Use of Oral Hypoglycemics Essential Hypertension History of Nicotine Dependence Diabetes Mellitus Type 2 - Uncomplicated , Controlled Dry Eye Syndrome Both Eyes Diabetes Mellitus Type 2 - Uncomplicated , Controlled Dry Eye Syndrome Both Eyes Outpatient Attender: Rod Howard 0 09/30/2020 11:00:00 AM EDT [facility] ([facility] ) Outpatient Attender: Jessica Howard 10/2020 01:40:00 PM EST [facility] ([facility] ) Outpatient Attender: Rod Howard 0 07/22/2020 10:40:00 AM EST [facility] ([facility] ) Outpatient Attender: Jessica Howard 10:30:00 AM EST [facility] ([facility] ) <td ID="encounterTypeDescriptionID1">4 M ont Follow-Up with [facility]</td><td>Russell Connelly DO</td><td>Demarco Mercado MD [facility]</td><td>06/03/2020</td><td>1:00PM</td><td>2:30PM</td><td><content ID="encounterDiagnosisID1-0">History of Nicotine Dependence</content>, <content ID="encounterDiagnosisID1-1">Essential Hypertension</content>, <content ID="encounterDiagnosisID1-2">Taking Medication For Diabetes Long-term Use of Oral Hypoglycemics</content>, <content ID="encounterDiagnosisID1-3">Diabetes Mellitus Type 2 - Uncomplicated, Controlled</content>, <content ID="encounterDiagnosisID1-4">Macular Degeneration Nonexudative Bilateral Early Dry Stage</content></td>Outpatient Attender: RUSSELL Avila MD [facility] 06/03/2020 01:00:00 PM EST - 06/03/2020 02:30:00 PM ES T Macular Degeneration Nonexudative Bilateral Early Dry StageTaking Medication For Diabetes Long-term Use of Oral HypoglycemicsEssential HypertensionHistory of Nicotine DependenceMacular Degeneration Nonexudative Bilateral Early Dry Stage Taking Medication For Diabetes Long-term Use of Oral HypoglycemicsEssential HypertensionHistory of Nicotine DependenceDiabetes Mellitus Type 2 - Uncomplicated, ControlledDiabetes Mellitus Type 2 - Uncomplicated, Controlled SHARON (Demarco Lou MD [facility]) Macular Degeneration Nonexudative Bilate ral Early Dry Stage Taking Medication For Diabetes Long-term Use of Oral Hypoglycemics Essential Hypertension History of Nicotine Dependence Macular Degeneration Nonexudative Bilate ral Early Dry Stage Taking Medication For Diabetes Long-term Use of Oral Hypoglycemics Essential Hypertension History of Nicotine Dependence Diabetes Mellitus Type 2 - Uncomplicated , Controlled Diabetes Mellitus Type 2 - Uncomplicated , Controlled Outpatient Attender: Felipe Mitchell/April/Jermaine/Liudmila caldera 05/02/2020 11:30:00 AM EDT [facility] ([facility] ) Outpatient Attender: Rod Howard 1 11:40:00 AM EDT [facility] ([facility] ) Outpatient Attender: Sarai Howard 04/12 10:40:00 AM EDT [facility] ([facility] ) Immunizations Vaccine Date Status Description Data Source(s) COVID-19 VACCINE Moderna 05/16/2021 12:00:00 AM EDT completed [facility] Vaccine Series Complete: YESThis Data wa s Submitted to [facility] Via [facility]. tetanus toxoid, unspecified formulation 09/30/2020 10:49:00 AM EDT completed [facility] ([facility]) pneumococcal polysaccharide PPV23 09/30/2020 10:48:00 AM EDT comple eduardo PAYNE ([facility]) This CVX code allows reporting of a vacc ination when formulation is unknown (for example, when recording a Influenza vaccination when noted on a vaccination card) 09/30/2020 10:48:00 AM EDT completed RENA Morse ([facility]) Pneumococcal conjugate PCV 13 09/30/2020 10:47:00 AM EDT completed ELMER ([facility]) COVID-19 VACCINE Moderna 08/30/2020 12:00:00 AM EST completed [facility] Vaccine Series Complete: YESThis Data wa s Submitted to [facility] Via [facility]. COVID-19 VACCINE, MRNA-1273, LNP-S (MODERNA)/PF 08/30/2020 1 2:00:00 AM EST completed [facility] COVID-19 VACCINE, MRNA-1273, LNP-S (MODERNA)/PF 08/02/2020 1 2:00:00 AM EST completed [facility] COVID-19 VACCINE Moderna 08/02/2020 12:00:00 AM EST completed [facility] Vaccine Series Complete: NOThis Data was Submitted to [facility] Via [facility]. Influenza, injectable, MDCK, preservative free, nancy valent 04/30/2020 11:51:00 AM EDT completed [facility] ([facility]) Medications Medication Brand Name Start Date Product Form Dose Route Admi nistrative Instructions Pharmacy Instructions Status Indications Reaction Description Data Source(s) Furosemide 20 MG Oral Tablet Furosemide 05/21/2021 12:00:00 AM EDT ORAL completed MEDBRIGHT ([facility]) Furosemide 20 MG Oral Tablet Furosemide 05/21/2021 12:00:00 AM EDT ORAL active [facility] ([facility]) 100 mcg/0.5 mL 05/16/2021 12:00:00 AM EDT suspension 0 INJECT DIRECTED (THIRD DOSE) INJECT DIRECTED (THIRD DOSE) SOLD: 05/16/2021 [facility] 240 mcg/0.7 mL 05/07/2021 12:00:00 AM EDT syringe 0 INJECT DIRECTED INJECT DIRECTED SOLD: 05/07/2021 [facility] NITROFURANTOIN, MACROCRYSTALS 25 MG / Ni trofurantoin, Monohydrate 75 MG Oral Capsule Nitrofurantoin Monohyd Macro 04/22/2021 12:00:00 AM EDT ORAL active [facility] ([facility], [facility]) Suprep Bowel Prep Kit Suprep Bowel Prep Kit 03/06/2021 12:00:00 AM EDT active [facility] ([facility]) ezetimibe 10 MG Oral Tablet Ezetimibe 01/03/2021 12:00:00 AM EDT ORAL active [facility] ([facility]) 0.5 ML dulaglutide 3 MG/ML Auto-Injector [Trulicity] Trulicity 1.5 MG/0.5ML Subcutaneous Solution Pen-injector Trulicity 1.5 MG/0.5ML Subcutaneous Solu tion Pen-injector 01/01/2021 12:00:00 AM EDT activ e 0.5 ML dulaglutide 3 MG/ML Auto-Injector [Trulicity] SHARON (Demarco Lou MD [facility]) Lisinopril 10 MG Oral Tablet Lisinopril 09/30/2020 12:00:00 AM EDT ORAL active [facility] ([facility]) Covid-19 vaccine, Unspecified 08/30/2020 12:00:00 AM EST completed [facility] ([facility]) Medication administered onsite Amlodipine 5 MG Oral Tablet Amlodipine Besylate 08/22/2020 12:00:00 A M EST ORAL completed [facility] ([facility]) Covid-19 vaccine, Unspecified 08/02/2020 12:00:00 AM EST completed [facility] ([facility]) Medication administered onsite 0.5 ML dulaglutide 1.5 MG/ML Auto-Injector [Trulicity] [place] 07/08/2020 12:00:00 AM EST completed [facility] ([facility]) 0.5 ML dulaglutide 3 MG/ML Auto-Injector [Trulicity] Joei [place] 07/08/2020 12:00:00 AM EST active M EDENT ([facility]) glimepiride 2 MG Oral Tablet Glimepiride 06/07/2020 12:00:00 AM EST ORAL active [facility] ([facility]) Acetaminophen 300 MG / Codeine Phosphate 30 MG Oral Tablet [Tylenol with Codeine] Tylenol With Codeine #3 05/02/2020 12:00:00 AM EDT active [facility] ([facility]) Cyclobenzaprine hydrochloride 10 MG Oral Tablet Cyclobenzapr ine HCL 04/30/2020 12:00:00 AM EDT ORAL active M EDENT ([facility]) 24 HR Metformin hydrochloride 500 MG Extended Release Oral Tablet Metformin HCL ER 04/30/2020 12:00:00 AM EDT ORAL completed [facility] ([facility]) Cyclobenzaprine hydrochloride 10 MG Oral Tablet Cyclobenzapr ine HCL 04/18/2020 12:00:00 AM EDT ORAL active M EDENT ([facility]) Metformin HCL ER (Mod) Metformin HCL ER (Mod) 01/03/2020 12:00:00 AM EDT ORAL completed [facility] ([facility]) Insurance Providers Payer name Policy type / Coverage type Policy ID Covered democrat ID Covered democrat's relationship to hansen Policy Hansen Plan Information MEDICARE [id number] Maritza [id number] A MEDICARE A [id number] Self [id number] A MEDICARE A [id number] Self [id number] Medicare Natl Govt Servic Medicare Primary [id number] Self 1 [id number] Medicare Natl Govt Servic Medicare Primary [id number] Self 1 [id number] Medicare Natl Govt Servic Medicare Primary [id number] Self [id number] Medicare Natl Govt Servic Medicare Primary [id number] Self Medicare Natl Govt Servic Medicare Primary [id number] Self 1 [id number] MEDICARE [id number] SP [id number] R90 MEDICARE [id number] SP [id number] A Medicare Natl Govt Servic Medicare Primary [id number] Self 1 [id number] Medicare Natl Govt Servic Medicare Primary [id number] Self 8 [id number] Medicare Natl Govt Servic Medicare Primary [id number] Self 1 [id number] Medicare Natl Govt Servic Medicare Primary [id number] Self [id number] [employer] [place] Medigap Part B [id number] [id number] Self [id number] [employer] [place] Medigap Part B [id number] 2.0.1.741539.3.227.99.4595.5133.0 Self [id number] [employer] [place] Medigap Part B [id number] 2.0.1.048661.3.227.99.4595.5133.0 Self [id number] [employer] [place] Medigap Part B [id number] 2.0.1.582132.3.227.99.4595.5133.0 Self [id number] [employer] [place] Medigap Part B [id number] 2.0.1.288775.3.227.99.4595.5133.0 Self [id number] [employer] Medigap Part B [id number] .0.1.331081.3.227.99.4595.5133.0 Self [id number] [employer] [place] Medigap Part B [id number] 2.0.1.257676.3.227.99.4595.5133.0 Self [id number] [employer] Medigap Part B [id number] 2.0.1.807428.3.227.99.4595.5133.0 Self [id number] [employer] [place] Medigap Part B Plan D [id number] Self Plan D Health Net Ella Commercial [id number] Self Health Net Ella Medigap Part B [id number] Self Health Net Ella Medigap Part B [id number] [id number] Self [id number] Health Net Ella Commercial [id number] 2.0.1.230200.3.227. 99.4595.5133.0 Self [id number] [employer] Medigap Part B [id number] 2.0.1.755285.3.227.99.4595.5133.0 Self [id number] [employer] Medigap Part B [id number] 2.0.1.728318.3.227.99.4595.5133.0 Self [id number] [facility] OPTIONS [id number] SP [id number] FIRST UNITED MALIAN [id number] SP [id number] [employer] Medigap Part B [id number] 2.0.1.644382.3.227.99.4595.5133.0 Self [id number] [employer] Medigap Part B [id number] 2.0.1.015211.3.227.99.4595.5133.0 Self [id number] [employer] Medigap Part B [id number] 2.0.1.233922.3.227.99.4595.5133.0 Self [id number] [employer] Medigap Part B [id number] 2.0.1.692761.3.227.99.4595.5133.0 Self [id number] FIRST [employer]IAN [id number] SP [id number] [employer] Medigap Part B [id number] 2.0.1.279187.3.227.99.4595.5133.0 Self 6 [id number] [employer] Medigap Part B [id number] 2.0.1.862364.3.227.99.4595.5133.0 Self 6 [id number] [employer] [place] Medigap Part B Plan B [id number] Self Plan B [employer] Medigap Part B [id number] 2.16.840.1.288067.3.227.99.4595.5133.0 Self [id number] [employer] Medigap Part B [id number] 2.16.840.1.425128.3.227.99.4595.5133.0 Self [id number] [employer] Medigap Part B [id number] 2.16.840.1.360500.3.227.99.4595.5133.0 Self [id number] [employer] Medigap Part B [id number]9.4595.5133.0 Self [id number] [employer] Medigap Part B [id number]9.4595.5133.0 Self [id number] [employer] Medigap Part B [id number] 2.16.840.1.067677.3.227.99.4595.5133.0 Self [id number] [employer] Medigap Part B [id number] 2.16.840.1.869735.3.227.99.4595.5133.0 Self [id number] [employer] Medigap Part B [id number] 2.16.840.1.685644.3.227.99.4595.5133.0 Self [id number] [employer] LIFE U [id number] Self [id number] [employer] INSURANCE U [id number] Self [id number] [facility] Opt Medigap Part B [id number] Self 3 [id number] [facility] Opt Medigap Part B [id number]9.4595.5133.0 Self [id number] [employer] OPTIONS [id number] SP [id number] [employer] OPTIONS [id number] SP [id number] [facility] [id number] Maritza [id number] MEDICARE [id number] SP [id number] R90 MEDICARE C [id number] S [id number] A [facility] [id number] S [id number] O UNAVAILABLE UNAVAILA BLE Medicare Part B [facility] Other 0 [id number] S elf 0 [place]LOB[place] O [id number] S [id number] Medicare [place] Medicare Primary [id number] Self [id number] [facility] Health Care Options Medigap Part B [id number] Self [id number] Medicare Natl Gov't Servi Medicare Primary [id number] Self [id number] [facility] Health Care Options [facility] [id number] Self [id number] AAR O [id number] S [id number] MEDICARE C [id number] S [id number] R90 FIRST UNITED MALIAN O [id number] S [id number] AAR O [id number] S [id number] Medicare Part B [facility] Other 0 [id number] Self 0 Medicare Part B [facility] Other 0 [id number] Self 0 MEDICARE [id number] SP [id number] A AARP HEALTH CARE OPTIONS [id number] SP [id number] [employer] [place](pr) Medigap Part B [id number] Self Medicare [facility] Medicare Primary [id number] Self FIRST UNITED [place]IAN [id number] SP [id number] FIRST UNITED MALIAN O [id number] S [id number] O UNAVAILABLE UNAVAILA BLE Problems, Conditions, and Diagnoses Code Display Name Description Problem Type Effective Dates Data Source(s) 34630961 Posterior Capsule Opacification Eccentri c Capsule Both Eyes Posterior Capsule Opacification Eccentric Capsule Both Eyes Problem 12/17 12:00:00 AM EDT SHARON (Demarco Lou MD [facility]) 48103208 Posterior Capsule Opacification Eccentri c Capsule Both Eyes Posterior Capsule Opacification Eccentric Capsule Both Eyes Problem 12/17 12:00:00 AM EDT SHARON (Demarco Lou MD [facility]) 401.9 Essential Hypertension Essential Hypertension Problem 07/22/2020 12:00:00 AM EST SHARON (Demarco Lou MD [facility]) [id number] History of Nicotine Dependence History of Nicotine Dep endence Problem 07/22/2020 12:00:00 AM EST SHARON (Demarco Lou MD [facility]) 249053382 Macular Degeneration Nonexudative Bilate ral Early Dry Stage Macular Degeneration Nonexudative Bilateral Early Dry Stage Problem 12:00:00 AM EST SHARON (Demarco Lou MD [facility]) Z79.84 Taking Medication For Diabetes Long-term Use of Oral Hypoglycemics Taking Medication For Diabetes Long-term Use of Oral Hypoglycemics Problem 07/22/2020 12:00:00 AM EST SHARON (Demarco Lou MD [facility]) 401.9 Essential Hypertension Essential Hypertension Problem 07/22/2020 12:00:00 AM EST SHARON (Demarco Lou MD [facility]) 493609720 History of Nicotine Dependence History of Nicotine Dep endence Problem 07/22/2020 12:00:00 AM EST SHARON (Demarco Lou MD [facility]) 885326515 Macular Degeneration Nonexudative Bilate ral Early Dry Stage Macular Degeneration Nonexudative Bilateral Early Dry Stage Problem 12:00:00 AM EST SHARON (Demarco Lou MD [facility]) Z79.84 Taking Medication For Diabetes Long-term Use of Oral Hypoglycemics Taking Medication For Diabetes Long-term Use of Oral Hypoglycemics Problem 07/22/2020 12:00:00 AM EST SHARON (Demarco Lou MD [facility]) 457764780 Degenerative disorder of macula (disorde r) Macular Degeneration Both Eyes Problem 10/27/2012 12:00:00 AM EDT - 07/22/2020 12:00:00 AM EST SHARON (Demarco Lou MD [facility]) 130156052 Degenerative disorder of macula (disorde r) Macular Degeneration Both Eyes Problem 10/27/2012 12:00:00 AM EDT - 07/22/2020 12:00:00 AM EST SHARON (Demarco Lou MD [facility]) Surgeries/Procedures Procedure Description Date Indications Data Source(s) OFFICE OUTPATIENT VISIT 25 MINUTES 05/21/2021 12:00:00 AM EDT MEDENT ([facility]) DESTRUCTION BENIGN LESIONS UP TO 14 05/20/2021 12:00:0 0 AM EDT MEDENT ([facility]) OFFICE OUTPATIENT VISIT 25 MINUTES 05/20/2021 12:00:00 AM EDT MEDENT ([facility]) OFFICE OUTPATIENT VISIT 15 MINUTES 04/22/2021 12:00:00 AM EDT [facility] ([facility]) OFFICE OUTPATIENT VISIT 15 MINUTES 03/06/2021 12:00:00 AM EDT MEDENT ([facility]) OFFICE OUTPATIENT VISIT 25 MINUTES 01/03/2021 12:00:00 AM EDT [facility] ([facility]) Comprehensive eye exam established patient (Signi/Sep Eval. & Man.) Comprehensive eye exam established patient (Signi/Sep Eval. & Man.) 01/01/2021 12:00:00 AM EDT SHARON (Demarco Lou MD [facility]) Scodi Retina, with interpretation and re port (WAIVER OF LIABILITY ON FILE (ABN)) Scodi Retina, with interpretation and re port (WAIVER OF LIABILITY ON FILE (ABN)) 01/01/2021 12:00:00 AM EDT SHARON (Nitin Lou MD [facility]) Comprehensive eye exam established patient (25) Juan wilburnive eye exam established patient (25) 01/01/2021 12:00:00 AM EDT SHARON (Demarco Lou MD [facility]) COMPUTERIZED OPHTHALMIC IMAGING RETINA Scodi Retina, w ith interpretation and report (GA) 01/01/2021 12:00:00 AM EDT SHARON (Nitin Lou MD [facility]) OFFICE OUTPATIENT VISIT 25 MINUTES 09/30/2020 12:00:00 AM EDT MED[facility] ([facility]) OFFICE OUTPATIENT VISIT 15 MINUTES 08/22/2020 12:00:00 AM EST [facility] ([facility]) Extracapsular extraction of lens (procedure) History o f extracapsular cataract extraction PCIOL OD 07/23/[address] Connelly ~PCIOL OS 06/25/[address] Connelly 07/22/2020 12:00:00 AM EST SHARON (Demarco zamudio MD [facility]) OFFICE OUTPATIENT VISIT 25 MINUTES 07/22/2020 12:00:00 AM EST [facility] ([facility]) OFFICE OUTPATIENT VISIT 15 MINUTES 07/08/2020 12:00:00 AM EST [facility] ([facility]) Scodi Retina, with interpretation and re port (WAIVER OF LIABILITY ON FILE (ABN)) Scodi Retina, with interpretation and re port (WAIVER OF LIABILITY ON FILE (ABN)) 06/03/2020 12:00:00 AM EST SHARON (Nitin Lou MD [facility]) Comprehensive eye exam established patient (Signi/Sep Eval. & Man.) Comprehensive eye exam established patient (Signi/Sep Eval. & Man.) 06/03/2020 12:00:00 AM EST SHARON (Demarco Lou MD [facility]) Results ID Date Data Source [id number] 04/22/2021 10:28:00 AM EDT MED[facility] ([facility]) Name Value Range Interpretation Code Description Data Elizabeth rce(s) Supporting Document(s) Bacteria identified in Urine by Culture Laboratory test result MEDENT ([facility]) <content>FULL REPORT IN LAB NOTES ([facility]).</content>
<content></content>
<content>ORGANISM 1: KLEBSIELLA PNEUMONIAE</content>
<content></content>
<content>COLONY COUNT >100,000</content>
<content></content>
<content></content>
<content> ORGANISM 1: KLEBSIELLA PNEUMONIAE</content>
<content></content>
<content>KLEBSIELLA PNEUMONIAE: REACTION</content>
<content>TRIMETHOPRIM/SULFAMETHOXAZOLE IV 160mg TMP & 800mg SMXq6h <=20 S</content>
<content> TRIMETHOPRIM/SULFAMETHOXAZOLE PO Bactrim DS Bid <=20 S</content>
<content>AMPICILLIN IV 500mg q6h >=32 R</content>
<content>AMPICILLIN PO 500mg q6h fasting >=32 R</content>
<content>GENTAMICIN IV 80mg q8h <=1 S</content>
<content>NITROFURANTOIN PO 100mg BID 32 S</content>
<content>CEFAZOLIN IV 1gm q8h <=4 S</content>
<content> LEVOFLOXACIN IV 500mg qd <=0.12 S</content>
<content>LEVOFLOXACIN PO 250mg qd <=0.12 S</content>
<content>LEVOFLOXACIN PO 500mg qd <=0.12 S</content>
<content>TOBRAMYCIN IV 80mg q8h <=1 S</content>
<content>CEFTRIAXONE IV 1gm q24h <=1 S</content>
<content>CEFTAZIDIME IV 1gm q8h <=1 S</content>
<content> AMPICILLIN/SULBACTAM IV 1.5g q6h 8 S</content>
<content>PIPERACILLIN/TAZOBACTAM IV 2.25 gm q6h <=4 S</content>
<content>AZTREONAM IV 1gm q8h <=1 S</content>
<content>ERTAPENEM IV 1gm qd <=0.5 S</content>
<content>MEROPENEM IV 1 gm q8h <=0.25 S</content>
<content>MEROPENEM IV 500 mg q8h <=0.25 S</content>
<content> TIGECYCLINE IV 50mg q12h 1 S</content>
<content>CEFEPIME IV 1 gm q12h <=1 S</content>
<content>CEFEPIME IV 2 gm q12h <=1 S</content>
<content>EXTD BRD SPCTRM BETA LACTAMASE IV NEGATIVE FOR ESBL</content>
<content></content> ID Date Data Source [id number] 01/03/2021 09:42:[facility] Name Value Range Interpretation Code Description Data Elizabeth rce(s) Supporting Document(s) Urine Color Laboratory test result MEDEN T ([facility]) Urine Appearance Laboratory test result [facility] ([facility]) Urine PH 6.0 units 5.0-9.0 [facility]) Urine Leukocytes Laboratory test result Abnormal (applies to non-numeric results) [facility] Specific gravity of Urine 1.020 1.005-1.030 [place] [facility] ([facility]) Urine Protein Laboratory test result 0-0 Abnormal (applies to non-numeric results) [facility] ([facility]) Urine Blood Laboratory test result MEDEN T ([facility]) Glucose [Presence] in Urine Laboratory test result [facility] ([facility]) Urine Nitrite Laboratory test result Abnormal (applies to non-numeric results) [facility] Urine Ketone Laboratory test result MEDE NT ([facility]) Bilirubin.total [Mass/volume] in Serum or Plasma [facility] Urine Urobilinogen 0.2 mg/dL 0.2-1.0 [facility] ([facility]) ID Date Data Source [id number] 01/03/2021 09:42:00 AM EDT [facility] Name Value Range Interpretation Code Description Data Elizabeth rce(s) Supporting Document(s) Urine Creatinine 163.0 mg/dL 30.0-[facility].[address] [facility] Microalbumin Urine 428.4 mg/L 1.3-20.[address] [facility] NOTE: diluted and verified Microalb/Creat Ratio 262.8 ug/mg 0.0-30.0 [facility] ([facility]) ID Date Data Source [id number] 01/03/2021 09:42:00 AM EDT [facility] ([facility]) Name Value Range Interpretation Code Description Data Elizabeth rce(s) Supporting Document(s) Glucose [Mass/volume] in Serum or Plasma 198 mg/dL 74-99 [facility] ([facility]) 100-125 mg/dL PRE-DIABETES/FASTING >126 mg/dL DIABETES/FASTING Creatinine 1.5 mg/dL 0.6-1.3 [facility] ([facility]) Urea nitrogen [Mass/volume] in Serum or Plasma 31 mg/dL 7-18 [facility] ([facility]) Sodium [Moles/volume] in Serum or Plasma 141 meq/L 136-145 [facility] ([facility]) Potassium [Moles/volume] in Serum or Plasma 4.8 meq/L 3.5-5.1 [facility] ([facility]) Calcium [Mass/volume] in Serum or Plasma 8.9 mg/dL 8.5-10.1 [facility] ([facility]) Carbon dioxide, total [Moles/volume] in Serum or Plasma 24 meq/L 21 -32 [facility] ([facility]) Chloride [Moles/volume] in Serum or Plasma 106 meq/L 98-107 [facility] Total Bilirubin 0.4 mg/dL 0.2-1.0 [facility] ([facility]) Alkaline phosphatase isoenzyme [Units/volume] in Serum or Pl asma 93 mg/dL 46-116 [facility] ([facility]) Aspartate aminotransferase [Enzymatic activity/volume] in Serum or Plasma 16 U/L 15-37 [facility] ([facility] ) Alanine aminotransferase [Enzymatic activity/volume] in Seru m or Plasma 19 U/L 12-78 [facility] ([facility]) Proteinase 3 Ab [Units/volume] in Serum 6.6 g/dL 6.4-8.2 [facility] ([facility]) Albumin [Mass/volume] in Serum or Plasma 3.3 g/dL 3.4-5.0 [facility] ([facility]) A/G Ratio 1.00 CALC 1.00-1.90 [facility] ([facility]) Glomerular filtration rate/1.73 sq M pre dicted among blacks [Volume Rate/Area] in Serum or Plasma by Creatinine-based formula (MDRD) 40 mL/min [facility] <content>CHRONIC KIDNEY DISEASE STAGING PER NKF</content>
<content></content>
<content>STAGE I & II GFR >= 60 NORMAL TO MILDLY DECREASED</content>
<content>STAGE III GFR 30-59 MODERATELY DECREASED</content>
<content>STAGE IV GFR 15-29 SEVERELY DECREASED</content>
<content>STAGE V GFR <15 VERY LITTLE GFR LEFT</content>
<content>ESRD GFR <15 ON WINDLASSER</content>
<content></content> Glomerular filtration rate/1.73 sq M pre dicted among non-blacks [Volume Rate/Area] in Serum or Plasma by Creatinine-based formula (MDRD) 33 mL/min [facility] ID Date Data Source [id number] 01/03/2021 09:42:00 AM EDT [facility] ([facility]) Name Value Range Interpretation Code Description Data Elizabeth rce(s) Supporting Document(s) Glucose mean value [Mass/volume] in Blood Estimated fr om glycated hemoglobin 166 mg/dL 60-110 [facility] ([facility] ) Hemoglobin A1c/Hemoglobin.total in Blood 7.4 % [facility] ([facility]) Lab Result Notes: Pre-Diabetes 5.7 - 6.4 % Diabetes = or > 6.5% ID Date Data Source [id number] 01/03/2021 09:42:00 AM EDT [facility]) Name Value Range Interpretation Code Description Data Elizabeth rce(s) Supporting Document(s) Erythrocytes [#/volume] in Blood by Automated count 4.14 x10*6/UL 4.2 0-6.30 [facility] Hemoglobin [Mass/volume] in Blood 13.0 g/dL 12.0-18.0 [facility] Leukocytes [#/volume] in Blood by Automated count 7.2 x10*3/UL 4.1-10 .9 [facility] ([facility]) MCV 92.7 fL 80.0-97.0 [facility] ([facility]) Hematocrit [Volume Fraction] of Blood by Automated count 38.3 % 3 7.0-51.0 [facility] ([facility]) MCH 31.4 pg 26.0-32.0 [facility] ([facility]) MCHC 33.9 g/dL 31.0-38.0 [facility] ([facility]) Platelets [#/volume] in Blood by Automated count 210 x10*3/UL 140-440 [facility] ([facility]) MPV 8.7 FL 7.8-11.0 [facility] ([facility]) Erythrocyte distribution width [Ratio] by Automated count 13.9 % 11.6-13.7 [facility] ([facility]) Lymph % 30.4 % 10.0-58.5 [facility] ([facility]) Mid % 7.8 % 1.7-9.3 [facility] ([facility]) Neut % 61.8 % 37.0-92.0 [facility] ([facility]) Mid # 0.5 x10*3/UL 0.1-0.6 [facility] ([facility]) Lymph # 2.2 x10*3/UL 0.6-4.1 [facility] ([facility]) Neut # 4.5 x10*3/UL 2.0-7.8 [facility] ([facility]) ID Date Data Source [id number] 01/03/2021 09:42:00 AM [facility] Name Value Range Interpretation Code Description Data Elizabeth rce(s) Supporting Document(s) Hemoglobin A1c/Hemoglobin.total in Blood [facility] ID Date Data Source [id number] 01/03/2021 09:41:00 AM EDT [facility] ([facility]) Name Value Range Interpretation Code Description Data Elizabeth rce(s) Supporting Document(s) Bacteria identified in Urine by Culture Laboratory test result [facility] ([facility]) <content>FULL REPORT IN LAB NOTES ([facility] a nd [facility]).</content>
<content></content>
<content>ORGANISM 1: KLEBSIELLA OXYTOCA</content>
<content></content>
<content>COLONY COUNT >100,000</content>
<content></content>
<content></content>
<content> ORGANISM 1: KLEBSIELLA OXYTOCA</content>
<content></content>
<content> KLEBSIELLA OXYTOCA: REACTION</content>
<content>TRIMETHOPRIM/SULFAMETHOXAZOLE IV 160mg TMP & 800mg SMXq6h <=20 S</content>
<content> TRIMETHOPRIM/SULFAMETHOXAZOLE PO Bactrim DS Bid <=20 S</content>
<content>AMPICILLIN IV 500mg q6h >=32 R</content>
<content>AMPICILLIN PO 500mg q6h fasting >=32 R</content>
<content>GENTAMICIN IV 80mg q8h <=1 S</content>
<content>NITROFURANTOIN PO 100mg BID 64 I</content>
<content>CEFAZOLIN IV 1gm q8h <=4 S</content>
<content>LEVOFLOXACIN IV 500mg qd <=0.12 S</content>
<content>LEVOFLOXACIN PO 250mg qd <=0.12 S</content>
<content>LEVOFLOXACIN PO 500mg qd <=0.12 S</content>
<content>TOBRAMYCIN IV 80mg q8h <=1 S</content>
<content> CEFTRIAXONE IV 1gm q24h <=1 S</content>
<content>CEFTAZIDIME IV 1gm q8h <=1 S</content>
<content>AMPICILLIN/SULBACTAM IV 1.5g q6h 4 S</content>
<content>PIPERACILLIN/TAZOBACTAM IV 2.25 gm q6h <=4 S</content>
<content>AZTREONAM IV 1gm q8h <=1 S</content>
<content>ERTAPENEM IV 1gm qd <=0.5 S</content>
<content>MEROPENEM IV 1 gm q8h <=0.25 S</content>
<content>MEROPENEM IV 500 mg q8h <=0.25 S</content>
<content>TIGECYCLINE IV 50mg q12h <=0.5 S</content>
<content>CEFEPIME IV 1 gm q12h <=1 S</content>
<content>CEFEPIME IV 2 gm q12h <=1 S</content>
<content>EXTD BRD SPCTRM BETA LACTAMASE IV NEGATIVE FOR ESBL</content>
<content></content> ID Date Data Source [id number] 09/30/2020 10:34:00 AM EDT [facility] ([facility]) Name Value Range Interpretation Code Description Data Elizabeth rce(s) Supporting Document(s) Hemoglobin A1c/Hemoglobin.total in Blood [facility] ID Date Data Source [id number] 09/30/2020 10:34:00 AM EDT [facility] ([facility]) Name Value Range Interpretation Code Description Data Elizabeth rce(s) Supporting Document(s) Triglyceride [Mass/volume] in Serum or Plasma 283 mg/dL 30-150 [facility] ([facility]) Cholesterol [Mass/volume] in Serum or Plasma 265 mg/dL 131-200 [facility] ([facility]) Cholesterol in LDL [Mass/volume] in Serum or Plasma by calcu lation 152 CALC 50-159 [facility] ([facility]) Cholesterol in HDL [Mass/volume] in Serum or Plasma 56 mg/dL 35-60 [facility] ([facility]) ID Date Data Source [id number] 09/30/2020 10:34:00 AM EDT [facility] ([facility]) Name Value Range Interpretation Code Description Data Elizabeth rce(s) Supporting Document(s) Glucose [Mass/volume] in Serum or Plasma 147 mg/dL 74-99 [facility] ([facility]) 100-125 mg/dL PRE-DIABETES/FASTING >126 mg/dL DIABETES/FASTING Urea nitrogen [Mass/volume] in Serum or Plasma 21 mg/dL 7-18 [facility] ([facility]) Creatinine 1.3 mg/dL 0.6-1.3 [facility] Potassium [Moles/volume] in Serum or Plasma 4.6 meq/L 3.5-5.1 [facility] ([facility]) Sodium [Moles/volume] in Serum or Plasma 141 meq/L 136-145 [facility] ([facility]) Chloride [Moles/volume] in Serum or Plasma 105 meq/L 98-107 [facility] ([facility]) Carbon dioxide, total [Moles/volume] in Serum or Plasma 28 meq/L 21 -32 [facility] ([facility]) Calcium [Mass/volume] in Serum or Plasma 8.9 mg/dL 8.5-10.1 [facility] ([facility]) Alkaline phosphatase isoenzyme [Units/volume] in Serum or Pl asma 102 mg/dL 46-116 [facility] ([facility]) Total Bilirubin 0.4 mg/dL 0.2-1.0 [facility] ([facility]) Albumin [Mass/volume] in Serum or Plasma 3.4 g/dL 3.4-5.0 [facility] ([facility]) Aspartate aminotransferase [Enzymatic activity/volume] in Serum or Plasma 12 U/L 15-37 [facility] ([facility] ) Alanine aminotransferase [Enzymatic activity/volume] in Seru m or Plasma 15 U/L 12-78 [facility] ([facility]) Proteinase 3 Ab [Units/volume] in Serum 6.8 g/dL 6.4-8.2 [facility] ([facility]) A/G Ratio 1.00 CALC 1.00-1.90 [facility]) Glomerular filtration rate/1.73 sq M pre dicted among blacks [Volume Rate/Area] in Serum or Plasma by Creatinine-based formula (MDRD) 48 mL/min [facility] ([facility]) <content>CHRONIC KIDNEY DISEASE STAGING PER NKF</content>
<content></content>
<content>STAGE I & II GFR >= 60 NORMAL TO MILDLY DECREASED</content>
<content>STAGE III GFR 30-59 MODERATELY DECREASED</content>
<content>STAGE IV GFR 15-29 SEVERELY DECREASED</content>
<content>STAGE V GFR <15 VERY LITTLE GFR LEFT</content>
<content>ESRD GFR <15 ON WINDLASSER</content>
<content></content> Glomerular filtration rate/1.73 sq M pre dicted among non-blacks [Volume Rate/Area] in Serum or Plasma by Creatinine-based formula (MDRD) 39 mL/min [facility] ([facility]) ID Date Data Source [id number] 09/30/2020 10:34:00 AM EDT [facility]) Name Value Range Interpretation Code Description Data Elizabeth rce(s) Supporting Document(s) Glucose mean value [Mass/volume] in Blood Estimated fr om glycated hemoglobin 160 mg/dL 60-110 [facility] ([facility] ) Hemoglobin A1c/Hemoglobin.total in Blood 7.2 % [facility] ([facility]) Lab Result Notes: Pre-Diabetes 5.7 - 6.4 % Diabetes = or > 6.5% ID Date Data Source [id number] 09/30/2020 10:34:00 AM EDT [facility]) Name Value Range Interpretation Code Description Data Elizabeth rce(s) Supporting Document(s) Leukocytes [#/volume] in Blood by Automated count 8.0 x10*3/UL 4.1-10 .9 [facility] ([facility]) Erythrocytes [#/volume] in Blood by Automated count 4.10 x10*6/UL 4.2 0-6.30 [facility] ([facility]) Hemoglobin [Mass/volume] in Blood 13.0 g/dL 12.0-18.0 [facility] ([facility]) MCV 91.9 fL 80.0-97.0 [facility] ([facility]) Hematocrit [Volume Fraction] of Blood by Automated count 37.7 % 3 7.0-51.0 [facility] ([facility]) MCH 31.7 pg 26.0-32.0 [facility] ([facility]) MCHC 34.5 g/dL 31.0-38.0 [facility] ([facility]) Platelets [#/volume] in Blood by Automated count 189 x10*3/UL 140-440 [facility] ([facility]) Erythrocyte distribution width [Ratio] by Automated count 13.4 % 11.6-13.7 [facility] ([facility]) Lymph % 30.9 % 10.0-58.5 [facility] ([facility]) MPV 8.8 FL 7.8-11.0 [facility] ([facility]) Mid % 6.8 % 1.7-9.3 [facility] ([facility]) Lymph # 2.4 x10*3/UL 0.6-4.1 [facility] ([facility]) Neut % 62.3 % 37.0-92.0 [facility] ([facility]) Neut # 4.9 x10*3/UL 2.0-7.8 [facility] ([facility]) Mid # 0.7 x10*3/UL 0.1-0.6 [facility] ([facility]) ID Date Data Source [id number] 07/22/2020 12:04:00 PM EST [facility] ([facility]) Name Value Range Interpretation Code Description Data Elizabeth rce(s) Supporting Document(s) Glucose [Mass/volume] in Serum or Plasma 133 mg/dL 74-99 [facility] ([facility]) 100-125 mg/dL PRE-DIABETES/FASTING >126 mg/dL DIABETES/FASTING Urea nitrogen [Mass/volume] in Serum or Plasma 31 mg/dL 7-18 [facility] ([facility]) Creatinine 1.4 mg/dL 0.6-1.3 [facility] Sodium [Moles/volume] in Serum or Plasma 142 meq/L 136-145 [facility] ([facility]) Potassium [Moles/volume] in Serum or Plasma 4.5 meq/L 3.5-5.1 [facility] ([facility]) Carbon dioxide, total [Moles/volume] in Serum or Plasma 25 meq/L 21 -32 [facility] ([facility]) Chloride [Moles/volume] in Serum or Plasma 106 meq/L 98-107 [facility] ([facility]) Calcium [Mass/volume] in Serum or Plasma 8.8 mg/dL 8.5-10.1 [facility] ([facility]) Glomerular filtration rate/1.73 sq M pre dicted among non-blacks [Volume Rate/Area] in Serum or Plasma by Creatinine-based formula (MDRD) 36 mL/min [facility] ([facility]) Glomerular filtration rate/1.73 sq M pre dicted among blacks [Volume Rate/Area] in Serum or Plasma by Creatinine-based formula (MDRD) 44 mL/min [facility] ([facility]) <content>CHRONIC KIDNEY DISEASE STAGING PER NKF</content>
<content></content>
<content>STAGE I & II GFR >= 60 NORMAL TO MILDLY DECREASED</content>
<content>STAGE III GFR 30-59 MODERATELY DECREASED</content>
<content>STAGE IV GFR 15-29 SEVERELY DECREASED</content>
<content>STAGE V GFR <15 VERY LITTLE GFR LEFT</content>
<content>ESRD GFR <15 ON WINDLASSER</content>
<content></content> ID Date Data Source [id number] 07/22/2020 12:04:00 PM EST [facility] ([facility]) Name Value Range Interpretation Code Description Data Elizabeth rce(s) Supporting Document(s) Hemoglobin A1c/Hemoglobin.total in Blood 7.6 % [facility] ([facility]) Lab Result Notes: Pre-Diabetes 5.7 - 6.4 % Diabetes = or > 6.5% Glucose mean value [Mass/volume] in Blood Estimated fr om glycated hemoglobin 171 mg/dL 60-110 [facility] ([facility] ) ID Date Data Source [id number] 07/22/2020 12:04:00 PM EST [facility] ([facility]) Name Value Range Interpretation Code Description Data Elizabeth rce(s) Supporting Document(s) Leukocytes [#/volume] in Blood by Automated count 7.0 x10*3/UL 4.1-10 .9 [facility] ([facility]) Erythrocytes [#/volume] in Blood by Automated count 3.83 x10*6/UL 4.2 0-6.30 [facility] ([facility]) Hemoglobin [Mass/volume] in Blood 12.3 g/dL 12.0-18.0 [facility] ([facility]) Hematocrit [Volume Fraction] of Blood by Automated count 35.8 % 3 7.0-51.0 [facility] ([facility]) MCH 32.3 pg 26.0-32.0 [facility] ([facility]) MCHC 34.5 g/dL 31.0-38.0 [facility] ([facility]) MCV 93.6 fL 80.0-97.0 [facility] ([facility]) Erythrocyte distribution width [Ratio] by Automated count 13.5 % 11.6-13.7 [facility] ([facility]) Platelets [#/volume] in Blood by Automated count 209 x10*3/UL 140-440 [facility] ([facility]) MPV 9.2 FL 7.8-11.0 [facility] ([facility]) Lymph % 34.7 % 10.0-58.5 [facility] ([facility]) Mid % 7.1 % 1.7-9.3 [facility] ([facility]) Neut % 58.2 % 37.0-92.0 [facility] ([facility]) Mid # 0.6 x10*3/UL 0.1-0.6 [facility] ([facility]) Lymph # 2.4 x10*3/UL 0.6-4.1 [facility] ([facility]) Neut # 4.0 x10*3/UL 2.0-7.8 [facility] ([facility]) ID Date Data Source [id number] 05/10/2020 09:09:00 AM EDT [facility] ([facility]) Name Value Range Interpretation Code Description Data Elizabeth rce(s) Supporting Document(s) Lactic Acid Level, Lactate 2.0 mmol/L 0.4-2.0 [facility] ([facility]) ID Date Data Source [id number] 05/10/2020 09:07:00 AM EDT [facility] ([facility]) Name Value Range Interpretation Code Description Data Elizabeth rce(s) Supporting Document(s) Glucose [Mass/volume] in Serum or Plasma 169 mg/dL 74-99 [facility] ([facility]) 100-125 mg/dL PRE-DIABETES/FASTING >126 mg/dL DIABETES/FASTING Urea nitrogen [Mass/volume] in Serum or Plasma 33 mg/dL 7-18 [facility] ([facility]) NOTE: BUN,CREAT VERIFIED Potassium [Moles/volume] in Serum or Plasma 4.8 meq/L 3.5-5.1 [facility] ([facility]) Sodium [Moles/volume] in Serum or Plasma 141 meq/L 136-145 [facility] ([facility]) Creatinine 1.6 mg/dL 0.6-1.3 [facility] Carbon dioxide, total [Moles/volume] in Serum or Plasma 21 meq/L 21 -32 [facility] ([facility]) Chloride [Moles/volume] in Serum or Plasma 108 meq/L 98-107 [facility] ([facility]) Calcium [Mass/volume] in Serum or Plasma 8.9 mg/dL 8.5-10.1 [facility] ([facility]) Glomerular filtration rate/1.73 sq M pre dicted among non-blacks [Volume Rate/Area] in Serum or Plasma by Creatinine-based formula (MDRD) 31 mL/min [facility] ([facility]) Glomerular filtration rate/1.73 sq M pre dicted among blacks [Volume Rate/Area] in Serum or Plasma by Creatinine-based formula (MDRD) 37 mL/min [facility] ([facility]) <content>CHRONIC KIDNEY DISEASE STAGING PER NKF</content>
<content></content>
<content>STAGE I & II GFR >= 60 NORMAL TO MILDLY DECREASED</content>
<content>STAGE III GFR 30-59 MODERATELY DECREASED</content>
<content>STAGE IV GFR 15-29 SEVERELY DECREASED</content>
<content>STAGE V GFR <15 VERY LITTLE GFR LEFT</content>
<content>ESRD GFR <15 ON WINDLASSER</content>
<content></content> ID Date Data Source [id number] 05/03/2020 10:59:00 AM EDT [facility] ([facility]) Name Value Range Interpretation Code Description Data Elizabeth rce(s) Supporting Document(s) Lactic Acid Level, Lactate 2.1 mmol/L 0.4-2.0 Above upper panic li mits [facility] BACK AND VERIFIED BY CK ID Date Data Source [id number] 05/03/2020 10:56:00 AM EDT [facility] ([facility]) Name Value Range Interpretation Code Description Data Elizabeth rce(s) Supporting Document(s) Glucose [Mass/volume] in Serum or Plasma 263 mg/dL 74-99 [facility] ([facility]) 100-125 mg/dL PRE-DIABETES/FASTING >126 mg/dL DIABETES/FASTING Sodium [Moles/volume] in Serum or Plasma 139 meq/L 136-145 [facility] ([facility]) Urea nitrogen [Mass/volume] in Serum or Plasma 36 mg/dL 7-18 [facility] ([facility]) Creatinine 1.8 mg/dL 0.6-1.3 [facility] ([facility]) Carbon dioxide, total [Moles/volume] in Serum or Plasma 22 meq/L 21 -32 [facility] ([facility]) Potassium [Moles/volume] in Serum or Plasma 5.4 meq/L 3.5-5.1 [facility] ([facility]) NOTE: RESULT VERIFIED. NO VISIBLE HEMOLYSIS. Chloride [Moles/volume] in Serum or Plasma 106 meq/L 98-107 [facility] ([facility]) Glomerular filtration rate/1.73 sq M pre dicted among non-blacks [Volume Rate/Area] in Serum or Plasma by Creatinine-based formula (MDRD) 27 mL/min [facility] ([facility]) Calcium [Mass/volume] in Serum or Plasma 9.1 mg/dL 8.5-10.1 [facility] ([facility]) Glomerular filtration rate/1.73 sq M pre dicted among blacks [Volume Rate/Area] in Serum or Plasma by Creatinine-based formula (MDRD) 33 mL/min [facility] <content>CHRONIC KIDNEY DISEASE STAGING PER NKF</content>
<content></content>
<content>STAGE I & II GFR >= 60 NORMAL TO MILDLY DECREASED</content>
<content>STAGE III GFR 30-59 MODERATELY DECREASED</content>
<content>STAGE IV GFR 15-29 SEVERELY DECREASED</content>
<content>STAGE V GFR <15 VERY LITTLE GFR LEFT</content>
<content>ESRD GFR <15 ON WINDLASSER</content>
<content></content> ID Date Data Source [id number] 04/30/2020 12:34:00 PM EDT [facility] ([facility]) Name Value Range Interpretation Code Description Data Elizabeth rce(s) Supporting Document(s) Urea nitrogen [Mass/volume] in Serum or Plasma 48 mg/dL 7-18 [facility] ([facility]) Glucose [Mass/volume] in Serum or Plasma 203 mg/dL 74-99 [facility] ([facility]) 100-125 mg/dL PRE-DIABETES/FASTING >126 mg/dL DIABETES/FASTING Potassium [Moles/volume] in Serum or Plasma 5.9 meq/L 3.5-5.1 [facility] NOTE: RESULT VERIFIED. NO VISIBLE HEMOLYSIS. Sodium [Moles/volume] in Serum or Plasma 136 meq/L 136-145 [facility] ([facility]) Creatinine 1.7 mg/dL 0.6-1.3 [facility] ([facility]) Chloride [Moles/volume] in Serum or Plasma 106 meq/L 98-107 [facility] Carbon dioxide, total [Moles/volume] in Serum or Plasma 16 meq/L 21 -32 [facility]) Glomerular filtration rate/1.73 sq M pre dicted among non-blacks [Volume Rate/Area] in Serum or Plasma by Creatinine-based formula (MDRD) 29 mL/min [facility]) Glomerular filtration rate/1.73 sq M pre dicted among blacks [Volume Rate/Area] in Serum or Plasma by Creatinine-based formula (MDRD) 35 mL/min [facility] ([facility]) <content>CHRONIC KIDNEY DISEASE STAGING PER NKF</content>
<content></content>
<content>STAGE I & II GFR >= 60 NORMAL TO MILDLY DECREASED</content>
<content>STAGE III GFR 30-59 MODERATELY DECREASED</content>
<content>STAGE IV GFR 15-29 SEVERELY DECREASED</content>
<content>STAGE V GFR <15 VERY LITTLE GFR LEFT</content>
<content>ESRD GFR <15 ON WINDLASSER</content>
<content></content> Calcium [Mass/volume] in Serum or Plasma 9.4 mg/dL 8.5-10.1 [facility] ID Date Data Source [id number] 04/23/2020 12:48:00 PM EDT [facility] Name Value Range Interpretation Code Description Data Elizabeth rce(s) Supporting Document(s) Laboratory test finding (navigational concept) 181 mg/dL 70-105 [facility] ([facility]) Laboratory test finding (navigational concept) 41.0 % 38.0-51.0 [facility] ([facility]) Laboratory test finding (navigational concept) 5.2 meq/L 3.5-5.1 [facility] ([facility]) Laboratory test finding (navigational concept) 5.0 mg/dL 4.5-5.3 [facility] ([facility]) Laboratory test finding (navigational concept) 140 meq/L 136-145 [facility] ([facility]) Laboratory test finding (navigational concept) 34 mg/dL 8-26 [facility] ([facility]) Laboratory test finding (navigational concept) 107 meq/L 98-109 [facility] ([facility]) Laboratory test finding (navigational concept) 19.0 MM/L 23.0-27.0 [facility] ([facility]) Laboratory test finding (navigational concept) 1.5 mg/dL 0.6-1.3 [facility] ([facility]) ID Date Data Source [id number] 04/23/2020 12:38:00 PM EDT [facility] ([facility]) Name Value Range Interpretation Code Description Data Elizabeth rce(s) Supporting Document(s) Lipoprotein lipase [Enzymatic activity/volume] in Serum or P lasma 201 U/L 73-393 [facility] ([facility]) C reactive protein [Mass/volume] in Serum or Plasma by High sensitivity method Laboratory test result 0.00-0.30 [facility] ([facility]) ID Date Data Source [id number] 04/23/2020 12:38:00 PM EDT [facility] ([facility]) Name Value Range Interpretation Code Description Data Elizabeth rce(s) Supporting Document(s) Alt/SGPT 18 U/L 12-78 [facility] ([facility]) Alkaline Phosphatase 81 U/L 45-117 [facility] ([facility]) Ast/Sgot 9 U/L 7-37 [facility] ([facility]) Bilirubin,Direct Laboratory test result 0.0-0.2 [facility] ([facility]) Bilirubin,Total 0.3 mg/dL 0.2-1.0 [facility] ([facility]) Total Protein 6.9 GM/DL 6.4-8.2 [facility] ([facility]) Albumin 3.4 GM/DL 3.2-5.2 [facility] ([facility]) Albumin/Globulin Ratio 1.0 1.2-2.2 [facility] ([facility]) ID Date Data Source [id number] 04/23/2020 12:38:00 PM EDT [facility] ([facility]) Name Value Range Interpretation Code Description Data Elizabeth rce(s) Supporting Document(s) Erythrocyte sedimentation rate by Westergren method 14 mm/hr 0-30 [facility] ([facility]) ID Date Data Source [id number] 04/23/2020 12:38:00 PM EDT [facility] ([facility]) Name Value Range Interpretation Code Description Data Elizabeth rce(s) Supporting Document(s) Red Blood Count 3.91 10 4.00-5.40 [facility] ([facility]) White Blood Count 9.2 10 4.0-10.0 [facility] ([facility]) Hemoglobin 12.3 g/dL 12.0-15.5 [facility] ([facility]) Hematocrit 38.8 % 36.0-47.0 [facility] ([facility]) Mean Corpuscular Hemoglobin 31.5 pg 27.0-33.0 [facility] ([facility]) Mean Corpuscular HGB Conc 31.7 g/dL 32.0-36.5 [facility] ([facility]) Mean Corpuscular Volume 99.2 fl 80.0-96.0 MEDENT ([facility]) Red Cell Distribution Width 13.4 % 11.5-14.5 ME DENT ([facility]) Platelet Count, Automated 211 10 150-450 MEDE NT ([facility]) Neutrophils % 69.7 % 36.0-66.0 MEDENT ([facility]) Lymph % 21.2 % 24.0-44.0 [facility] ([facility]) Baso % 0.4 % 0.0-1.0 [facility] ([facility]) [place] % 7.0 % 0.0-5.0 [facility] ([facility]) Eos % 1.0 % 0.0-3.0 [facility] ([facility]) Nucleated Red Blood Cell % 0.0 % 0-0 MED ENT ([facility]) Neutrophils # 6.4 10 1.5-8.5 MEDENT ([facility]) Immature Granulocyte % 0.7 % 0-3.0 MEDENT ([facility]) [place] # 0.6 10 0.0-0.8 MED[facility] ([facility]) Lymph # 1.9 10 1.5-5.0 MED[facility] ([facility]) Eos # 0.1 10 0.0-0.5 MED[facility] ([facility]) Baso # 0.0 10 0.0-0.2 MEDENT ([facility]) Procedure Social History Code Duration Value Status Description Data Source(s ) Smoking 04/22/2021 12:00:00 AM EDT Former Cigarette Smok er 1 Pack Daily completed Former Cigarette Smoker 1 Pack Daily MEDENT ([facility], [facility]) Smoking 02/12/2021 07:06:04 AM EDT Ex-smoker (finding) complet ed Ex-smoker (finding) [place] (Demarco Lou MD [facility]) Smoking 01/01/2021 01:29:27 PM EDT Ex-smoker (finding) complet ed Ex-smoker (finding) [place] (Demarco Lou MD [facility]) Vital Signs ID Date Data Source UNK Name Value Range Interpretation Code Description Data Source(s) [facility]stolic blood [facility] 118 mm[facility]Hg] 118 [facility] Diastolic blood pressure 82 mm[Hg] 82 mm[facility] Heart rate 83 /min 83 /min [facility] ([facility]) Body weight 254.00 [lb_av] 254.00 [lb_av] [facility] ([facility]) Oxygen saturation in Arterial blood by Pulse oximetry 98 % 98 % [facility] ([facility]) Body mass index (BMI) [Ratio] 46.5 kg/m2 46.5 k g/m2 [facility] ([facility]) Body height 62 [in_i] 62 [in_i] [facility] ([facility]) 5'2" Systolic blood pressure 140 mm[Hg] 140 mm[Hg] [facility] Diastolic blood pressure 84 mm[Hg] 84 mm[Hg] [facility] Heart rate 89 /min 89 /min [facility] Body weight 248.00 [lb_av] 248.00 [lb_av] MEDEN T ([facility]) Body temperature 98.3 [degF] 98.3 [degF] MED[facility] ([facility], [facility]) Body weight 248.00 [lb_av] 248.00 [lb_av] MEDEN T ([facility], [facility]) Oxygen saturation in Arterial blood by Pulse oximetry 99 % 99 % [facility] ([facility], [facility]) Body height 63 [in_i] 63 [in_i] [facility] ([facility], [facility]) 5'3" Body mass index (BMI) [Ratio] 43.9 kg/m2 43.9 k g/m2 [facility] ([facility], [facility]) Systolic blood pressure 146 mm[Hg] 146 mm[Hg] [facility], [facility]) Diastolic blood pressure 80 mm[Hg] 80 mm[Hg] [facility] ([facility], [facility]) Heart rate 71 /min 71 /min [facility] ([facility], [facility]) Respiratory rate 18 /min 18 /min [facility] ( [facility], [facility]) Body height 63 [in_i] 63 [in_i] MEDENT ([facility]) 5'3" Body weight 252.00 [lb_av] 252.00 [lb_av] MEDEN T ([facility]) Systolic blood pressure 132 mm[Hg] 132 mm[Hg] [facility] Diastolic blood pressure 82 mm[Hg] 82 mm[Hg] [facility] ([facility]) Heart rate 67 /min 67 /min [facility] ([facility]) Body mass index (BMI) [Ratio] 44.6 kg/m2 44.6 k g/m2 [facility] ([facility]) Body weight 114.307 kg 114.307 kg [facility] ([facility] Body temperature 96.4 [degF] 96.4 [degF] [facility] ([facility]) Body weight 256.00 [lb_av] 256.00 [lb_av] MEDEN T ([facility]) Systolic blood pressure 126 mm[Hg] 126 mm[Hg] M EDENT ([facility]) Diastolic blood pressure 76 mm[Hg] 76 mm[Hg] [facility] ([facility]) Heart rate 68 /min 68 /min [facility] ([facility]) Body height 62 [in_i] 62 [in_i] [facility] ([facility]) 5'2" Body mass index (BMI) [Ratio] 46.8 kg/m2 46.8 k g/m2 [facility] ([facility]) Body height 62 [in_i] 62 [in_i] [facility] ([facility]) 5'2" Body mass index (BMI) [Ratio] 44.3 kg/m2 44.3 k g/m2 [facility] ([facility]) Systolic blood pressure 128 mm[Hg] 128 mm[Hg] M [facility] ([facility]) Body weight 242.38 [lb_av] 242.38 [lb_av] MEDEN T ([facility]) Diastolic blood pressure 72 mm[Hg] 72 mm[facility]] [facility] Body height 62 [in_i] 62 [in_i] MED[facility] ([facility]) 5'2" Heart rate 78 /min 78 /min [facility] ([facility]) Oxygen saturation in Arterial blood by Pulse oximetry 95 % 95 % [facility] Body mass index (BMI) [Ratio] 46.1 kg/m2 46.1 k g/m2 [facility] ([facility]) Body weight 252.00 [lb_av] 252.00 [lb_av] MEDEN T ([facility]) Heart rate 72 /min 72 /min [facility] ([facility]) Body height 62 [in_i] 62 [in_i] [facility] ([facility]) 5'2" Body weight 250.00 [lb_av] 250.00 [lb_av] MEDEN T ([facility]) Systolic blood pressure 134 mm[Hg] 134 [facility] Diastolic blood pressure 60 mm[Hg] 60 mm[Hg] [facility] ([facility]) Body mass index (BMI) [Ratio] 45.7 kg/m2 45.7 k g/m2 [facility] ([facility]) Body mass index (BMI) [Ratio] 45.9 kg/m2 45.9 k g/m2 [facility] ([facility]) Systolic blood pressure 130 mm[Hg] 130 mm[Hg] M EDENT ([facility]) Diastolic blood pressure 58 mm[Hg] 58 mm[Hg] [facility] ([facility]) Heart rate 71 /min 71 /[facility] Body height 62 [in_i] 62 [in_i] MED[facility] ([facility]) 5'2" Body weight 251.00 [lb_av] 251.00 [lb_av] MEDEN T ([facility]) Body temperature 96.8 [degF] 96.8 [degF] MEDENT ([facility]) Systolic blood pressure 131 mm[Hg] 131 mm[Hg] M EDENT ([facility]) R forearm Diastolic blood pressure 62 mm[Hg] 62 mm[Hg] [facility] ([facility]) R forearm Body weight 250.00 [lb_av] 250.00 [lb_av] MEDEN T ([facility]) Body temperature 95.4 [degF] 95.4 [degF] [facility] ([facility]) Diastolic blood pressure 76 mm[Hg] 76 [facility] Systolic blood pressure 138 mm[Hg] 138 mm[Hg] [facility] Heart rate 80 /min 80 /min [facility]) Body height 62 [in_i] 62 [in_i] [facility]) 5'2" Body weight 256.00 [lb_av] 256.00 [lb_av] MEDEN T ([facility]) Body mass index (BMI) [Ratio] 46.8 kg/m2 46.8 k g/m2 [facility] ([facility]) Body mass index (BMI) [Ratio] 42.2 kg/m2 42.2 k g/m2 [facility] ([facility], [facility]) Systolic blood pressure 148 mm[Hg] 148 mm[Hg] [facility], [facility]) Diastolic blood pressure 90 mm[Hg] 90 mm[Hg] [facility] ([facility], [facility]) Heart rate 88 /min 88 /min [facility], [facility]) Respiratory rate 20 /min 20 /[facility] ( [facility], [facility]) Oxygen saturation in Arterial blood by Pulse oximetry 98 % 98 % [facility] ([facility], [facility]) Body temperature 97.9 [degF] 97.9 [degF] [facility], [facility]) Body weight 238.00 [lb_av] 238.00 [lb_av] MEDEN T ([facility], [facility]) Body height 63 [in_i] 63 [in_i] [facility] ([facility], [facility]) 5'3" Body weight 250.00 [lb_av] 250.00 [lb_av] MEDEN T ([facility]) Oxygen saturation in Arterial blood by Pulse oximetry 99 % 99 % [facility] Body mass index (BMI) [Ratio] 45.7 kg/m2 45.7 k g/m2 [facility]) Heart rate 65 /min 65 /min [facility] Body height 62 [in_i] 62 [in_i] [facility]) 5'2"
[2021-06-11] MEDS ORDERED: propofoL 200 MG/20 ML VIAL As Ordered ONE (14:27)
--- NOTE | 2021-06-11 14:49 | ROOR ---
Patient Name: Mable Mcgrath Procedure Date: 06/11/2021 2:25 PM Date of : 1940 Age: 80 Room: [facility] Gender: Female Note Status: Finalized Procedure: Total Colonoscopy to Cecum + Cold Snare Polypectomy Indications: High risk colon cancer surveillance: Personal history of colonic polyps, High risk colon cancer surveillance: Personal history of adenoma with villous component Providers: Arnaud Connelly MD Referring MD: RENATA JURADO JR, MD Requesting Provider: Medicines: Monitored Anesthesia Care Complications: No immediate complications. Procedure: Pre-Anesthesia Assessment: - The heart rate, respiratory rate, oxygen saturations, blood pressure, adequacy of pulmonary ventilation, and response to care were monitored throughout the procedure. The Colonoscope was introduced through the anus and advanced to the cecum, identified by appendiceal orifice and ileocecal valve. The colonoscopy was performed without difficulty. The patient tolerated the procedure well. The quality of the bowel preparation was excellent. Findings: The perianal and digital rectal examinations were normal. Non-bleeding internal hemorrhoids were found during retroflexion. The hemorrhoids were small and Grade I (internal hemorrhoids that do not prolapse). Multiple small and large-mouthed diverticula were found in the recto-sigmoid colon, sigmoid colon and descending colon. A small polyp was found at 30 cm proximal to the anus. The polyp was sessile. The polyp was removed with a cold snare. Resection and retrieval were complete. The exam was otherwise without abnormality on direct and retroflexion views. Impression: - Non-bleeding internal hemorrhoids. - Diverticulosis in the recto-sigmoid colon, in the sigmoid colon and in the descending colon. - One small polyp at 30 cm proximal to the anus, removed with a cold snare. Resected and retrieved. - The examination was otherwise normal on direct and retroflexion views. - The exam was otherwise normal to the cecum. Recommendation: - Patient has a contact number available for emergencies. The signs and symptoms of potential delayed complications were discussed with the patient. Return to normal activities tomorrow. Written discharge instructions were provided to the patient. - High fiber diet. - Discharge patient to home. - Continue present medications. - Await pathology results. - Repeat colonoscopy PRN for surveillance. - Return to referring physician. - The findings and recommendations were discussed with the patient. - Telephone GI clinic for pathology results in 1 week. Procedure Code(s): --- Professional --- 01671, Colonoscopy, flexible; with removal of tumor(s), polyp(s), or other lesion(s) by snare technique Diagnosis Code(s): --- Professional --- K64.0, First degree hemorrhoids K63.5, Polyp of colon Z86.010, Personal history of colonic polyps K57.30, Diverticulosis of large intestine without perforation or abscess without bleeding CPT copyright 2019 [employer]. All rights reserved. The codes documented in this report are preliminary and upon safety coordinator review may be revised to meet current compliance requirements. Arnaud Connelly MD Arnaud Connelly MD 06/11/2021 2:49:16 PM Electronically signed by Arnaud Connelly MD Number of Addenda: 0 Note Initiated On: 06/11/2021 2:25 PM Estimated Blood Loss: Estimated blood loss: none.
[2021-06-11 15:10] VITALS: BP 176/86
== END 2021-06-11 15:20 | disposition home or self-care (01) ==
LOC: M OPP 12:40
PROVIDERS: ATTEND Internal Medicine Gastroenterology
DX: K63.5 Polyp of colon (principal); K64.0 First degree hemorrhoids; K57.30 Diverticulosis of large intestine without perforation or abscess without bleeding; R00.8 Other abnormalities of heart beat; I10 Essential (primary) hypertension; E11.8 Type 2 diabetes mellitus with unspecified complications; R60.9 Edema, unspecified; E78.5 Hyperlipidemia, unspecified; Z86.010 Personal history of colon polyps; Z87.891 Personal history of nicotine dependence; Z91.018 Allergy to other foods; Z91.040 Latex allergy status; Z79.899 Other long term (current) drug therapy

== ENCOUNTER → 2021-06-20 | Outpatient (REF) | payer MEDICARE ==
[~2021-06-20] MED LIST changes: -NS 1,000 ML IV ONE
== END ==
LOC: M LAB REF 16:27
PROVIDERS: ATTEND Internal Medicine
DX: N39.0 Urinary tract infection, site not specified (principal)

== ENCOUNTER → 2023-01-28 | Outpatient (CLI) | payer MEDICARE ==
[~2023-01-28] MED LIST changes: -CEFD1CAP8 PO; +CEFD300C41 PO; +CYAN-1 PO; -CYAN100050 PO; -D31000TA2 PO; +ISOVUE-300 61% 100ML VIAL As Ordered ONE; +LIDOCAINE 1% MDV 20ML VIAL As Ordered ONE; +LOSA100T46 PO; -LOSA100T50 PO; +VITA100093 PO; +methylPREDNISolone SUSP 40MG/ML 1ML VIAL (DEPO MEDROL) As Ordered ONE
== END ==
LOC: M RAD 14:01
PROVIDERS: ATTEND Physician Assistant
DX: M16.12 Unilateral primary osteoarthritis, left hip (principal)
CPT/HCPCS: 20610; 77002; J1030; Q9967

== ENCOUNTER → 2023-02-03 | Outpatient (REF) | payer MEDICARE ==
[~2023-02-03] MED LIST changes: -ISOVUE-300 61% 100ML VIAL As Ordered ONE; -LIDOCAINE 1% MDV 20ML VIAL As Ordered ONE; -methylPREDNISolone SUSP 40MG/ML 1ML VIAL (DEPO MEDROL) As Ordered ONE
[2023-02-03 17:37] LABS: URIC ACID 7.5 MG/DL (3.1-7.8)
[2023-02-03 17:39] LABS: PTH INTACT 35.4 PG/ML (18.5-88.0)
== END ==
LOC: M LAB REF 16:41
PROVIDERS: ATTEND Internal Medicine
DX: N18.32 Chronic kidney disease, stage 3b (principal); I13.0 Hypertensive heart and chronic kidney disease with heart failure and stage 1 through stage 4 chronic kidney disease, or unspecified chronic kidney disease

== ENCOUNTER → 2023-02-26 | Outpatient (REF) | payer MEDICARE | LOC: M LAB REF 12:42 | PROVIDERS: ATTEND Internal Medicine | DX: M25.562 Pain in left knee (principal) ==

== ENCOUNTER → 2023-03-23 | Outpatient (CLI) | payer MEDICARE | LOC: M RAD 07:38 | PROVIDERS: ATTEND Orthopaedic Surgery | DX: M25.562 Pain in left knee (principal) | CPT/HCPCS: 78315; A9503 ==

== ENCOUNTER → 2023-10-01 | Outpatient (REF) | payer MEDICARE ==
[~2023-10-01] MED LIST changes: +CEFD1CAP9 PO; -CEFD300C41 PO
[2023-10-01 13:56] LABS: PERCENT SATURATION 14.7 % (13.2-45.0)
[2023-10-01 13:59] LABS: FERRITIN 42.1 NG/ML (7.3-270.7)
== END ==
LOC: M LAB REF 12:16
PROVIDERS: ATTEND Internal Medicine
DX: D50.9 Iron deficiency anemia, unspecified (principal)

== ENCOUNTER → 2024-01-03 | Outpatient (REF) | payer MEDICARE | LOC: M LAB REF 16:09 | PROVIDERS: ATTEND Internal Medicine | DX: N39.0 Urinary tract infection, site not specified (principal) ==

== ENCOUNTER → 2025-04-10 | Outpatient (CLI) | payer MEDICARE ==
[~2025-04-10] MED LIST changes: -EZET10TA21 PO; +EZET10TA57 PO; +MORP-137 PO; -MSIR30TA PO
== END ==
LOC: M PLAIMG 14:40
PROVIDERS: ATTEND Internal Medicine
DX: G91.2 (Idiopathic) normal pressure hydrocephalus (principal)